=== PATIENT | male | born 1965 | race American Indian/Alaskan Native ===

== ENCOUNTER 2018-12-28 06:48 | Inpatient (IN) | payer MEDICAID ==
[~2018-12-28 06:48] MED LIST: ADRENALIN ONE; CALCIUM CHLORIDE IV ONE
[2018-12-28] MEDS ORDERED: LEVOPHED DRIP 4 MG/NS 250 ML 4 MG/250 ML BAG IV ONE ×5 (07:22→21:51)
[2018-12-28] MEDS ORDERED: VASELINE LIP THERAPY TP PRN (07:23)
[2018-12-28] MEDS ORDERED: ARTIFICIAL TEARS OPHTH OINT OU PRN (07:23)
[2018-12-28] MEDS ORDERED: ADRENALIN IV ONE ×3 (07:29→07:43)
[2018-12-28] MEDS: LEVOPHED DRIP 4 MG/NS 250 ML 4 MG/250 ML BAG IV SCH (07:30)
[2018-12-28] MEDS ORDERED: NACL 0.9% 1000 ML 1,000 ML IV ONE ×3 (07:30→08:11)
[2018-12-28] MEDS ORDERED: VANCOMYCIN/NS 1 GM/250 ML 1 GM/250 ML BAG IV ONE (07:35)
[2018-12-28] MEDS ORDERED: ZOSYN/NS 4.5GM/100ML 4.5 GM/100 ML VIAL IV ONE ×2 (07:35→18:27)
--- NOTE | 2018-12-28 07:36 | Emergency Department Report ---
ED CPR HPI - General Chief Complaint: Cardiac Arrest/CPR Stated Complaint: CARDIAC ARREST Time Seen by Provider: 12/28/18 07:20 Source: EMS Mode of arrival: Stretcher Limitations: Altered Mental Status, Physical Limitation - History of Present Illness Initial Comments: 53-year-old male with past medical history of significant debility, G-tube placement, iron deficiency anemia, COPD with oxygen prn, stage IV sacral ulcer, osteomyelitis of the sacral region, and diabetes, renal disease (as per ID record), epilepsy, hypertension, right AKA, and hyperlipidemia presents to the [facility] with initial complaint of hyperglycemia that then deteriorated to shortness of breath and cardiopulmonary arrest. Lipase glucose has been elevated controlled last night despite insulin doses. vital signs include a temperature of 100.5, bp 126/67, respiratory rate 24, pulse 94, and o2 sats of 65% on unknown amount of oxygen. At patient's baseline he is nonverbal and receives total feeds via peg tube. EMS reported that halfway stated the patient developed shortness of breath this morning. Upon EMS arrival glucose in the 300s. An route to the hospital patient began to bradycardia down into the cornea primary rest and was pulseless upon arrival to the ED. Patient arrived with bag valve mask ventilation and chest compressions in progress. No IV access was obtained and no medications provided prior to arrival. Patient is a full code. Patient [facility] a [facility] and had a hemoglobin of 7.2. - Related Data Home Medications Medication Instructions Recorded Confirmed Last Taken Sodium Bicarbonate 650 mg FEEDTUBE QID 06/11/18 12/28/18 Unknown Acetaminophen [Acetaminophen ORAL 20.3 ml FEEDTUBE Q6H PRN 08/21/18 12/28/18 Unknown LIQ] Ascorbic Acid [Vitamin C] 5 ml FEEDTUBE Q12H 08/21/18 12/28/18 Unknown Insulin Detemir [Levemir VIAL] 25 units SUB-Q QHS 08/21/18 12/28/18 Unknown Metoprolol [Lopressor TAB] 100 mg FEEDTUBE Q12H 08/21/18 12/28/18 Unknown Multivit-Minerals/Ferrous Gluc 5 ml FEEDTUBE DAILY@0600 08/21/18 12/28/18 Unknown [Centrum Multivit-Mineral Liq] Potassium Chloride 15 ml FEEDTUBE DAILY@0600 08/21/18 12/28/18 Unknown Zinc Sulfate 220 mg FEEDTUBE Q12H 08/21/18 12/28/18 Unknown hydrALAZINE [Apresoline TAB] 10 mg FEEDTUBE Q8H 08/21/18 12/28/18 Unknown levETIRAcetam [Keppra ORAL LIQ] 500 mg FEEDTUBE Q12H 08/21/18 12/28/18 Unknown Acetaminophen [Acetaminophen ORAL 20.3 ml FEEDTUBE Q6H PRN 12/28/18 12/28/18 Un known LIQ] Calcium Acetate 10 ml FEEDTUBE TID 12/28/18 12/28/18 Unknown Docusate Sodium 15 ml FEEDTUBE DAILY 12/28/18 12/28/18 Unknown Famotidine [Pepcid] 20 mg PO Q12H 12/28/18 12/28/18 Unknown Ferrous Sulfate [Ferrous Sulfate 5 ml FEEDTUBE BID 12/28/18 12/28/18 Unknown 220 MG/5 ML] HYDROcodone/APAP 5-325 [[place] 1 each FEEDTUBE BID 12/28/18 12/28/18 Unknown 5/325] Lipase/Protease/Amylase [[place] 1 each FEEDTUBE Q8H PRN 12/28/18 12/28/18 Unknown 12,000 Units] Lispro Insulin [Humalog] See Protocol SUB-Q ACHS 12/28/18 12/28/18 Unknown Sennosides [Senna Lax] 8.6 mg FEEDTUBE DAILY 12/28/18 12/28/18 Unknown traMADol [Ultram] 50 mg FEEDTUBE BID PRN 12/28/18 12/28/18 Unknown Allergies Allergy/AdvReac Type Severity Reaction Status Date / Time No Known Drug Allergies Allergy Unknown Verified 06/11/18 12:07 ED Review of Systems ROS: Stated complaint: CARDIAC ARREST Other details as noted in HPI Comment: Unobtainable due to pts medical conditions ED Past Medical Hx - Past Medical History Previous Medical History?: Yes Hx Hypertension: Yes Hx Heart Attack/AMI: No Hx Congestive Heart Failure: No Hx Diabetes: Yes Hx Deep Vein Thrombosis: No Hx Liver Disease: No Hx Seizures: Yes (x1 episode 12/2017) Hx Asthma: No Hx COPD: No Hx Tuberculosis: No Hx HIV: No - Surgical History Hx Open Heart Surgery: No Hx Pacemaker: No Hx Internal Defibrillator: No Hx Cholecystectomy: No Hx Appendectomy: No Hx Breast Surgery: No Additional Surgical History: above knee amputee, - Social History Smoking Status: Unknown if ever smoked - Medications Home Medications: Home Medications Medication Instructions Recorded Confirmed Last Taken Type Sodium Bicarbonate 650 mg FEEDTUBE QID 06/11/18 12/28/18 Unknown History Acetaminophen [Acetaminophen ORAL 20.3 ml FEEDTUBE Q6H PRN 08/21/18 12/28/18 Unknown History LIQ] Ascorbic Acid [Vitamin C] 5 ml FEEDTUBE Q12H 08/21/18 12/28/18 Unknown History Insulin Detemir [Levemir VIAL] 25 units SUB-Q QHS 08/21/18 12/28/18 Unknown History Metoprolol [Lopressor TAB] 100 mg FEEDTUBE Q12H 08/21/18 12/28/18 Unknown History Multivit-Minerals/Ferrous Gluc 5 ml FEEDTUBE DAILY@0600 08/21/18 12/28/18 Unknown History [Centrum Multivit-Mineral Liq] Potassium Chloride 15 ml FEEDTUBE DAILY@0600 08/21/18 12/28/18 Unknown History Zinc Sulfate 220 mg FEEDTUBE Q12H 08/21/18 12/28/18 Unknown History hydrALAZINE [Apresoline TAB] 10 mg FEEDTUBE Q8H 08/21/18 12/28/18 Unknown History levETIRAcetam [Keppra ORAL LIQ] 500 mg FEEDTUBE Q12H 08/21/18 12/28/18 Unknown History Acetaminophen [Acetaminophen ORAL 20.3 ml FEEDTUBE Q6H PRN 12/28/18 12/28/18 Unknown History LIQ] Calcium Acetate 10 ml FEEDTUBE TID 12/28/18 12/28/18 Unknown History Docusate Sodium 15 ml FEEDTUBE DAILY 12/28/18 12/28/18 Unknown History Famotidine [Pepcid] 20 mg PO Q12H 12/28/18 12/28/18 Unknown History Ferrous Sulfate [Ferrous Sulfate 5 ml FEEDTUBE BID 12/28/18 12/28/18 Unknown History 220 MG/5 ML] HYDROcodone/APAP 5-325 [[place] 1 each FEEDTUBE BID 12/28/18 12/28/18 Unknown History 5/325] Lipase/Protease/Amylase [Creon Dr 1 each FEEDTUBE Q8H PRN 12/28/18 12/28/18 Unknown History 12,000 Units] Lispro Insulin [Humalog] See Protocol SUB-Q ACHS 12/28/18 12/28/18 Unknown History Sennosides [Senna Lax] 8.6 mg FEEDTUBE DAILY 12/28/18 12/28/18 Unknown History traMADol [Ultram] 50 mg FEEDTUBE BID PRN 12/28/18 12/28/18 Unknown History ED Physical Exam - General Limitations: Physical Limitation - Other Other exam information: General: Unresponsive Head exam: left fontal scalp surgery with craniotomy/skull defect Eyes exam: Pupils fixed and dilated pupils ENT: copious secretions and posterior pharynx during intubation, aspiration suspected since secretions noted an ET tube after intubation Neck exam: Normal inspection Respiratory exam: Apneic with [id number] Cardiovascular: Pulseless Abdomen: Soft, PEG tube, nondistended, + colostomy Extremity: Right AKA, no spontaneous movement Neurologic: GCS equals 3 Psychiatric: Unresponsive Skin: Sacral decubitus ulcer, multiple decubitus ulcers ED Course Vital Signs 12/28/18 12/28/18 12/28/18 07:21 08:00 09:44 Temperature 99.2 F Pulse Rate 44 L 57 L Respiratory Rate Blood Pressure 55/28 113/61 O2 Sat by Pulse Oximetry 12/28/18 12/28/18 12/28/18 10:45 11:00 11:30 Temperature 97.6 F 97.6 F 97.6 F Pulse Rate 44 L 46 L 44 L Respiratory 20 24 23 Rate Blood Pressure 115/58 115/56 113/55 O2 Sat by Pulse 96 Oximetry 12/28/18 12/28/18 12/28/18 12:00 12:30 12:35 Temperature 97.5 F L Pulse Rate 44 L 42 L 42 L Respiratory 24 24 24 Rate Blood Pressure 114/53 115/53 O2 Sat by Pulse 98 98 Oximetry 12/28/18 12/28/18 12/28/18 13:00 13:30 14:00 Temperature 97.6 F 97.6 F Pulse Rate 42 L 42 L 41 L Respiratory 24 23 25 H Rate Blood Pressure 126/55 100/53 96/51 O2 Sat by Pulse 97 95 93 Oximetry - Reevaluation(s) Reevaluation #1: 12/28/18 07:44 Patient arrived pulseless with asystole. Crash intubation forms without sedating meds. IO was placed in the left tibia. Patient received 2 Amps of epinephrine, Sodium bicarbonate, and calcium gluconate with return of spontaneous circulation. Right femoral central line was in place and no epi drip ordered. Patient required intermittent boluses of epi IV for recurrent bradycardia and hypotension. 12/28/18 07:59 Patient remains hypotensive despite being maxed out on Levophed. 2 L normal saline bolus and progress. Epinephrine drip ordered. Critical care attending pagerivera 12/28/18 08:18 initial abg suggestive of respiratory and metabolic acidosis, respiratory rate increased on vent (see resp therapist note) - Consultations Consultation #1: 12/28/18 07:[address] Santiago diana 12/28/18 08:08 recommendations: addition of vasopressin to max out Levophed 2 Amp of sodium bicarbonate followed by bicarbonate drip at 200 mL per hour. - ABG Interpretation Ph: 7.17 PCO2: 60 PO2: 97 Bicarbonate: 22 Interpretation: respiratory acidosis - Central Line Placement Right Femoral Consent Obtained: emergent situation Time Out Performed: Yes Patient Placed on Monitor/Pulse Ox: Yes MD Prep: mask, gown, gloves Central Line Prep: Chlorhexidine scrub, sterile drapes applied Ultrasound Used for Placement: No Central Line Lumen Inserted: triple Bloods Obtained for Lab: Yes Central Line Position: good blood return, sutured in place with 3-0 Dressing Applied: Tegaderm Patient Tolerated Procedure: well Complications: none - Intubation Time Out Performed: Yes Sedative: none Laryngoscope: Vargas Size: 4 ET Tube Size: 7.5 Tube Secured Depth (cm): 22 Tube Secured Location: lips Tube Placement Confirmation: visualized tube passing t, equal breath sounds bilat, no breath sounds over epi, confirmation by capnometr Patient Tolerated Procedure: well Intubation Complications: none ED Medical Decision Making - Lab Data Result diagrams: 12/28/18 07:20 12/28/18 07:20 Lab Results 12/28/18 12/28/18 12/28/18 Range/Units 06:56 07:20 07:20 WBC 19.1 H (4.5-11.0) K/mm3 RBC 2.42 L (3.65-5.03) M/mm3 Hgb 6.2 L (11.8-15.2) gm/dl Hct 23.5 L (35.5-45.6) % MCV 97 H (84-94) fl MCH 26 L (28-32) pg MCHC 27 L (32-34) % RDW 20.5 H (13.2-15.2) % Plt Count 507 H (140-440) K/mm3 Lymph % (Auto) Chain Pegger [place] % (Auto) Chain Pegger Eos % (Auto) Chain Pegger Baso % (Auto) Chain Pegger Lymph # Chain Pegger [place] # Chain Pegger Eos # Chain Pegger Baso # Chain Pegger Seg Neutrophils % Chain Pegger Seg Neutrophils # Chain Pegger PT (12.2-14.9) Sec. INR (0.87-1.13) APTT (24.2-36.6) Sec. VBG pH (7.320-7.420) Sodium 160 H (137-145) mmol/L Potassium 5.6 H (3.6-5.0) mmol/L Chloride 108.5 H (98-107) mmol/L Carbon Dioxide 21 L (22-30) mmol/L Anion Gap 36 mmol/L BUN 67 H (9-20) mg/dL Creatinine 1.3 (0.8-1.5) mg/dL Estimated GFR > 60 ml/min BUN/Creatinine Ratio 52 % Glucose 457 H (75-100) mg/dL POC Glucose 357 H (70-105) Lactic Acid (0.7-2.0) mmol/L Calcium > 13.0 H* (8.4-10.2) mg/dL Total Bilirubin 0.30 (0.1-1.2) mg/dL AST 325 H (5-40) units/L ALT 190 H (7-56) units/L Alkaline Phosphatase 132 H (35-129) units/L CK-MB (CK-2) 1.9 (0.0-4.0) ng/mL Troponin T 0.568 H* (0.00-0.029) ng/mL Total Protein 6.8 (6.3-8.2) g/dL Albumin 2.8 L (3.9-5) g/dL Albumin/Globulin Ratio 0.7 % Urine Color (Yellow) Urine Turbidity (Clear) Urine pH (5.0-7.0) Ur Specific [place] [employer] (1.003-1.030) Urine Protein (Negative) mg/dL Urine Glucose (UA) (Negative) mg/dL Urine Ketones (Negative) mg/dL Urine Blood (Negative) Urine Nitrite (Negative) Urine Bilirubin (Negative) Urine Urobilinogen (<2.0) mg/dL Ur Leukocyte Esterase (Negative) Urine WBC (Auto) (0.0-6.0) /HPF Urine RBC (Auto) (0.0-6.0) /HPF Hyaline Casts /LPF Urine Yeast (Budding) /HPF Blood Type Antibody Screen Crossmatch 12/28/18 12/28/18 12/28/18 Range/Units 07:20 07:20 07:20 WBC (4.5-11.0) K/mm3 RBC (3.65-5.03) M/mm3 Hgb (11.8-15.2) gm/dl Hct (35.5-45.6) % MCV (84-94) fl MCH (28-32) pg MCHC (32-34) % RDW (13.2-15.2) % Plt Count (140-440) K/mm3 Lymph % (Auto) [place] % (Auto) Eos % (Auto) Baso % (Auto) Lymph # [place] # Eos # Baso # Seg Neutrophils % Seg Neutrophils # PT 17.1 H (12.2-14.9) Sec. INR 1.31 H (0.87-1.13) APTT 27.5 (24.2-36.6) Sec. VBG pH 7.149 L* (7.320-7.420) Sodium (137-145) mmol/L Potassium (3.6-5.0) mmol/L Chloride (98-107) mmol/L Carbon Dioxide (22-30) mmol/L Anion Gap mmol/L BUN (9-20) mg/dL Creatinine (0.8-1.5) mg/dL Estimated GFR ml/min BUN/Creatinine Ratio % Glucose (75-100) mg/dL POC Glucose (70-105) Lactic Acid 15.40 H* (0.7-2.0) mmol/L Calcium (8.4-10.2) mg/dL Total Bilirubin (0.1-1.2) mg/dL AST (5-40) units/L ALT (7-56) units/L Alkaline Phosphatase (35-129) units/L CK-MB (CK-2) (0.0-4.0) ng/mL Troponin T (0.00-0.029) ng/mL Total Protein (6.3-8.2) g/dL Albumin (3.9-5) g/dL Albumin/Globulin Ratio % Urine Color (Yellow) Urine Turbidity (Clear) Urine pH (5.0-7.0) Ur Specific [place] [employer] (1.003-1.030) Urine Protein (Negative) mg/dL Urine Glucose (UA) (Negative) mg/dL Urine Ketones (Negative) mg/dL Urine Blood (Negative) Urine Nitrite (Negative) Urine Bilirubin (Negative) Urine Urobilinogen (<2.0) mg/dL Ur Leukocyte Esterase (Negative) Urine WBC (Auto) (0.0-6.0) /HPF Urine RBC (Auto) (0.0-6.0) /HPF Hyaline Casts /LPF Urine Yeast (Budding) /HPF Blood Type Antibody Screen Crossmatch 12/28/18 12/28/18 Range/Units 07:20 08:02 WBC (4.5-11.0) K/mm3 RBC (3.65-5.03) M/mm3 Hgb (11.8-15.2) gm/dl Hct (35.5-45.6) % MCV (84-94) fl MCH (28-32) pg MCHC (32-34) % RDW (13.2-15.2) % Plt Count (140-440) K/mm3 Lymph % (Auto) [place] % (Auto) Eos % (Auto) Baso % (Auto) Lymph # [place] # Eos # Baso # Seg Neutrophils % Seg Neutrophils # PT (12.2-14.9) Sec. INR (0.87-1.13) APTT (24.2-36.6) Sec. VBG pH (7.320-7.420) Sodium (137-145) mmol/L Potassium (3.6-5.0) mmol/L Chloride (98-107) mmol/L Carbon Dioxide (22-30) mmol/L Anion Gap mmol/L BUN (9-20) mg/dL Creatinine (0.8-1.5) mg/dL Estimated GFR ml/min BUN/Creatinine Ratio % Glucose (75-100) mg/dL POC Glucose (70-105) Lactic Acid (0.7-2.0) mmol/L Calcium (8.4-10.2) mg/dL Total Bilirubin (0.1-1.2) mg/dL AST (5-40) units/L ALT (7-56) units/L Alkaline Phosphatase (35-129) units/L CK-MB (CK-2) (0.0-4.0) ng/mL Troponin T (0.00-0.029) ng/mL Total Protein (6.3-8.2) g/dL Albumin (3.9-5) g/dL Albumin/Globulin Ratio % Urine Color Yellow (Yellow) Urine Turbidity Slightly-cloudy (Clear) Urine pH 8.0 H (5.0-7.0) Ur Specific [place] [employer] 1.018 (1.003-1.030) Urine Protein 100 mg/dl (Negative) mg/dL Urine Glucose (UA) >=500 (Negative) mg/dL Urine Ketones Neg (Negative) mg/dL Urine Blood Neg (Negative) Urine Nitrite Neg (Negative) Urine Bilirubin Neg (Negative) Urine Urobilinogen < 2.0 (<2.0) mg/dL Ur Leukocyte Esterase Lg (Negative) Urine WBC (Auto) 59.0 H (0.0-6.0) /HPF Urine RBC (Auto) 6.0 (0.0-6.0) /HPF Hyaline Casts 1 /LPF Urine Yeast (Budding) 2+ /HPF Blood Type B POSITIVE Antibody Screen Negative Crossmatch See Detail - EKG Data -: EKG Interpreted by Id EKG shows normal: sinus rhythm, axis (qrs 33), QRS complexes (qrsd 71), ST-T waves (no stemi) Rate: bradycardia (55) - Radiology Data Radiology results: report reviewed AP CHEST: HISTORY: Endotracheal tube placement Compared to 09/06/18. The endotracheal tube is in adequate position terminating 3.2 cm superior to the [place]. Right arm PICC has been removed since the previous exam. Cardiac defibrillator pads are in position. There is poor inspiratory effort with mild bibasilar atelectatic changes, right greater than left. The lungs are grossly clear otherwise. No large pleural effusion or pneumothorax. Heart and mediastinal structures are within normal limits. IMPRESSION: Adequate placement of the endotracheal tube. Bibasilar hypoventilatory changes. - Medical Decision Making Patient name is extremely critical with poor prognosis status post cardiopulmonary arrest. Patient placed on norepinephrine and vasopressin. 3 L of normal saline ordered. Bicarbonate bolus, bicarbonate drip, Zosyn and vancomycin empirically ordered for possible sepsis (vs cardiogenic shock), cultures pending, 2 units PRBC ordered, critical care consultation and case discussed with hospitalist. See course and consult - Differential Diagnosis DKA, sepsis, COPD exacerbation, [place], PE Critical Care Time: Yes Critical care time in (mins) excluding proc time.: 65 Critical care attestation.: If time is entered above; I have spent that time in minutes in the direct care of this critically ill patient, excluding procedure time. ED Disposition Clinical Impression: Cardiopulmonary arrest, Septic shock, Hyperglycemia, Transaminasemia, IDDM (insulin dependent diabetes mellitus), Prerenal azotemia, Dehydration, Hyperkalemia, Hypercalcemia, Sacral decubitus ulcer, stage IV, History of right above knee amputation, S/P percutaneous endoscopic gastrostomy (PEG) tube placement, Anemia, Elevated troponin, Respiratory acidosis, Lactic acid acidosis, UTI (urinary tract infection) Disposition: DC-09 OP ADMIT IP TO THIS HOSP Is pt being admited?: Yes Condition: Critical Time of Disposition: 08:17 (Dr clarke/Stephanie)
[2018-12-28 07:49] LABS: Hematocrit 23.5 % (35.5-45.6); Hemoglobin 6.2 gm/dl (11.8-15.2); Mean Corpuscular HGB Conc 27 % (32-34); Mean Corpuscular Volume 97 fl (84-94); Platelet Count 507 K/mm3 (140-440); Red Blood Count 2.42 M/mm3 (3.65-5.03); Red Cell Distribution Width 20.5 % (13.2-15.2)
[2018-12-28 07:50] LABS: INR 1.31 (0.87-1.13)
[2018-12-28 07:51] LABS: Partial Thromboplastin Time 27.5 Sec. (24.2-36.6)
[2018-12-28] MEDS ORDERED: NACL 0.9% 500 ML 500 ML IV ONE (07:51)
[2018-12-28] MEDS ORDERED: ADRENALIN 8 MG in NACL 0.9% 250ML 242 ML IV ONE (07:54)
--- NOTE | 2018-12-28 07:58 | XRay Report ---
AP CHEST: HISTORY: Endotracheal tube placement Compared to 09/06/18. The endotracheal tube is in adequate position terminating 3.2 cm superior to the [place]. Right arm PICC has been removed since the previous exam. Cardiac defibrillator pads are in position. There is poor inspiratory effort with mild bibasilar atelectatic changes, right greater than left. The lungs are grossly clear otherwise. No large pleural effusion or pneumothorax. Heart and mediastinal structures are within normal limits. IMPRESSION: Adequate placement of the endotracheal tube. Bibasilar hypoventilatory changes.
[2018-12-28 08:02] LABS: Creatine Kinase MB 1.9 ng/mL (0.0-4.0)
[2018-12-28] MEDS ORDERED: INTROPIN DRIP 800 MG/D5W 250 ML 800 MG/250 ML BAG IV ONE (08:03)
[2018-12-28] MEDS ORDERED: SODIUM BICARBONATE 150 MEQ in D5W 1,000 ML IV ONE (08:04)
[2018-12-28 08:08] LABS: Alanine Aminotransferase 190 units/L (7-56); Albumin 2.8 g/dL (3.9-5); BUN/Creatinine Ratio 52; Blood Urea Nitrogen 67 mg/dL (9-20); Hemolysis Index 3
[2018-12-28] MEDS ORDERED: D50W (25GM) Syringe IV PRN ×2 (08:10→20:31)
[2018-12-28] MEDS ORDERED: KEPPRA 500 MG/NS 0.82% 100 ML 500 MG/100 ML BAG IV ONE (08:17)
[2018-12-28 08:18] LABS: Bilirubin,Urine NEG (Negative); Blood,Urine NEG (Negative); Color,Urine Yellow (Yellow); Hyaline Casts,Urine 1 /LPF; Urobilinogen,Urine < 2.0 mg/dL (<2.0)
[2018-12-28 08:22] LABS: Calcium > 13.0 mg/dL (8.4-10.2)
[2018-12-28 08:35] LABS: Chol/HDL Ratio 3.03 %; HDL Cholesterol 27 mg/dL (40-59); LDL Cholesterol,Direct 49 mg/dL (50-130)
[2018-12-28] MEDS ORDERED: KEPPRA 500 MG in NACL 0.9% 100 ML IV NR (09:00)
[2018-12-28] MEDS ORDERED: HumuLIN R 100 UNITS in NACL 0.9% 99 ML IV SCH (09:00)
[2018-12-28] MEDS ORDERED: Vasostrict 20 UNIT in NACL 0.9% 100 ML IV SCH (09:00)
[2018-12-28 09:12] LABS: Basophils % (Manual) 0 % (0.0-1.8); Eosinophils % (Manual) 0 % (0.0-4.3); Total Cells Counted 100
[2018-12-28 09:13] LABS: Anisocytosis 1+; Rouleaux 1+; Tear Drop Cells Few; Toxic Granulation 1+
[2018-12-28 09:15] LABS: Platelet Estimate Consistent w Auto
[2018-12-28] MEDS ORDERED: NARCAN 0.4 MG/1 ML IV PRN (11:28)
[2018-12-28] MEDS ORDERED: MORPHINE IV PRN (11:28)
[2018-12-28] MEDS ORDERED: ZOFRAN IV PRN (11:28)
[2018-12-28] MEDS ORDERED: SODIUM CHLORIDE FLUSH SYRINGE 10 ML IV PRN (11:28)
--- NOTE | 2018-12-28 12:16 | Event Note ---
Date: 12/28/18 Detailed cardiology consultation dictated. Pt is resident of [facility] who presented with cardiopulmonary arrest. Noted to be in sinus bradycardia, requiring multiple vasopressors. Pt was on lopressor 100mg BID at home. Obtain echo and hold AV iraj blocking agents. Overall poor prognosis. Mauricio DURAN NP / DR. POLK
--- NOTE | 2018-12-28 16:56 | History and Physical Report ---
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 As per staff at [facility] patient was hyperglycemic and deteriorated to shortness of breath. In route to the [facility] patient began to experience bradycardia. Pt became pulseless on arrival to ED, subsequently leading to cardiopulmonary arrest. Cardiopulmonary resuscitation was performed, patient was intubated, and placed on levophed and vasopressin. He is found to be acidotic , hypercapnic, hyperglycemic and anemic. He was further treated with 2 units of PRBC and insulin drip. Past History Past Medical History: diabetes, hypertension, seizures Past Surgical History: Other Social history: other Family history: no significant family history Medications and Allergies Allergies Allergy/AdvReac Type Severity Reaction Status Date / Time No Known Drug Allergies Allergy Unknown Verified 06/11/18 12:07 Home Medications Medication Instructions Recorded Confirmed Last Taken Type Sodium Bicarbonate 650 mg FEEDTUBE QID 06/11/18 12/28/18 Unknown History Acetaminophen [Acetaminophen ORAL 20.3 ml FEEDTUBE Q6H PRN 08/21/18 12/28/18 Unknown History LIQ] Ascorbic Acid [Vitamin C] 5 ml FEEDTUBE Q12H 08/21/18 12/28/18 Unknown History Insulin Detemir [Levemir VIAL] 25 units SUB-Q QHS 08/21/18 12/28/18 Unknown History Metoprolol [Lopressor TAB] 100 mg FEEDTUBE Q12H 08/21/18 12/28/18 Unknown History Multivit-Minerals/Ferrous Gluc 5 ml FEEDTUBE DAILY@0600 08/21/18 12/28/18 Unknown History [Centrum Multivit-Mineral Liq] Potassium Chloride 15 ml FEEDTUBE DAILY@0600 08/21/18 12/28/18 Unknown History Zinc Sulfate 220 mg FEEDTUBE Q12H 08/21/18 12/28/18 Unknown History hydrALAZINE [Apresoline TAB] 10 mg FEEDTUBE Q8H 08/21/18 12/28/18 Unknown History levETIRAcetam [Keppra ORAL LIQ] 500 mg FEEDTUBE Q12H 08/21/18 12/28/18 Unknown History Acetaminophen [Acetaminophen ORAL 20.3 ml FEEDTUBE Q6H PRN 12/28/18 12/28/18 Unknown History LIQ] Calcium Acetate 10 ml FEEDTUBE TID 12/28/18 12/28/18 Unknown History Docusate Sodium 15 ml FEEDTUBE DAILY 12/28/18 12/28/18 Unknown History Famotidine [Pepcid] 20 mg PO Q12H 12/28/18 12/28/18 Unknown History Ferrous Sulfate [Ferrous Sulfate 5 ml FEEDTUBE BID 12/28/18 12/28/18 Unknown History 220 MG/5 ML] HYDROcodone/APAP 5-325 [Avalon 1 each FEEDTUBE BID 12/28/18 12/28/18 Unknown History 5/325] Lipase/Protease/Amylase [[place] 1 each FEEDTUBE Q8H PRN 12/28/18 12/28/18 Unknown History 12,000 Units] Lispro Insulin [Humalog] See Protocol SUB-Q ACHS 12/28/18 12/28/18 Unknown History Sennosides [Senna Lax] 8.6 mg FEEDTUBE DAILY 12/28/18 12/28/18 Unknown History traMADol [Ultram] 50 mg FEEDTUBE BID PRN 12/28/18 12/28/18 Unknown History Active Meds: Active Medications Dextrose (D50w (25gm) Syringe) 0 ml IV PRN PRN PRN Reason: Hypoglycemia Hydrophilic Ointment (Vaseline Lip Therapy) 1 applic TP Q2HR PRN PRN Reason: Dry Lips Norepinephrine (Levophed Drip 4 Mg/Ns 250 Ml) 4 mg in 250 mls @ 7.5 mls/hr IV TITR PATRICIO; Protocol Last Titration: 12/28/18 10:00 Dose: 22 mcg/min, 82.5 mls/hr Documented by: Vasopressin 20 unit/ Sodium (Chloride) 101 mls @ 9.09 mls/hr IV TITR PATRICIO; Protocol Last Admin: 12/28/18 08:57 Dose: 0.03 units/min, 9.09 mls/hr Documented by: Insulin Human Regular 100 (units/ Sodium Chloride) 100 mls @ 1 mls/hr IV TITR PATRICIO; Protocol Last Titration: 12/28/18 16:34 Dose: 3 units/hr, 3 mls/hr Documented by: Morphine Sulfate (Morphine) 2 mg IV Q4H PRN PRN Reason: Pain, Moderate (4-6) Multi-Ingred Cream/Lotion/Oil/Oint (Artificial Tears Ophth Oint) 1 applic OU Q4HR PRN PRN Reason: Dry Eye(s) Naloxone HCl (Narcan 0.4 Mg/1 Ml) 0.1 mg IV Q2MIN PRN PRN Reason: Res Rate </= 8 or 02 SAT < 92% Ondansetron HCl (Zofran) 4 mg IV Q8H PRN PRN Reason: Nausea And Vomiting Sodium Chloride (Sodium Chloride Flush Syringe 10 Ml) 10 ml IV BID PATRICIO Sodium Chloride (Sodium Chloride Flush Syringe 10 Ml) 10 ml IV PRN PRN PRN Reason: LINE FLUSH Review of Systems ROS unobtainable: due to endotracheal tube Exam - Constitutional Vitals: Temp Pulse Resp BP Pulse Ox 97.6 F 42 L 21 90/45 93 12/28/18 13:30 12/28/18 15:22 12/28/18 15:22 12/28/18 15:22 12/28/18 14:00 General appearance: Present: mild distress - EENT Eyes: Present: PERRL ENT: poor dentition - Neck Neck: Present: supple - Respiratory Respiratory effort: other Respiratory: bilateral: diminished - Cardiovascular Rhythm: irregularly irregular Heart Sounds: Present: S1 & S2 - Extremities Extremities: No edema, abnormal Peripheral Pulses: abnormal - Abdominal General gastrointestinal: Present: soft, other Male genitourinary: Present: deferred - Rectal Rectal Exam: deferred - Integumentary Integumentary: Present: warm - Musculoskeletal Musculoskeletal: other - Psychiatric Psychiatric: other - Neurologic Neurologic: other Results - Labs CBC & Chem 7: 12/28/18 07:20 12/28/18 16:36 Labs: Laboratory Last Values WBC 19.1 K/mm3 (4.5-11.0) H 12/28/18 07:20 RBC 2.42 M/mm3 (3.65-5.03) L 12/28/18 07:20 Hgb 6.2 gm/dl (11.8-15.2) L 12/28/18 07:20 Hct 23.5 % (35.5-45.6) L 12/28/18 07:20 MCV 97 fl (84-94) H 12/28/18 07:20 MCH 26 pg (28-32) L 12/28/18 07:20 MCHC 27 % (32-34) L 12/28/18 07:20 RDW 20.5 % (13.2-15.2) H 12/28/18 07:20 Plt Count 507 K/mm3 (140-440) H 12/28/18 07:20 Lymph % (Auto) [employer] 12/28/18 07:20 [place] % (Auto) [employer] 12/28/18 07:20 Eos % (Auto) [employer] 12/28/18 07:20 Baso % (Auto) [employer] 12/28/18 07:20 Lymph # [employer] 12/28/18 07:20 [place] # [employer] 12/28/18 07:20 Eos # [employer] 12/28/18 07:20 Baso # [employer] 12/28/18 07:20 Add Manual Diff Complete 12/28/18 07:20 Total Counted 100 12/28/18 07:20 Seg Neutrophils % [employer] 12/28/18 07:20 Seg Neuts % (Manual) 79.0 % (40.0-70.0) H 12/28/18 07:20 Band Neutrophils % 0 % 12/28/18 07:20 Lymphocytes % (Manual) 15.0 % (13.4-35.0) 12/28/18 07:20 Reactive Lymphs % (Man) 2.0 % 12/28/18 07:20 Monocytes % (Manual) 3.0 % (0.0-7.3) 12/28/18 07:20 Eosinophils % (Manual) 0 % (0.0-4.3) 12/28/18 07:20 Basophils % (Manual) 0 % (0.0-1.8) 12/28/18 07:20 Metamyelocytes % 1.0 % 12/28/18 07:20 Myelocytes % 0 % 12/28/18 07:20 Promyelocytes % 0 % 12/28/18 07:20 Blast Cells % 0 % 12/28/18 07:20 Nucleated RBC % 1.0 % (0.0-0.9) H 12/28/18 07:20 Seg Neutrophils # [employer] Organ[employer] 12/28/18 07:20 Seg Neutrophils # Man 15.1 K/mm3 (1.8-7.7) H 12/28/18 07:20 Band Neutrophils # 0.0 K/mm3 12/28/18 07:20 Lymphocytes # (Manual) 2.9 K/mm3 (1.2-5.4) 12/28/18 07:20 Abs React Lymphs (Man) 0.4 K/mm3 12/28/18 07:20 Monocytes # (Manual) 0.6 K/mm3 (0.0-0.8) 12/28/18 07:20 Eosinophils # (Manual) 0.0 K/mm3 (0.0-0.4) 12/28/18 07:20 Basophils # (Manual) 0.0 K/mm3 (0.0-0.1) 12/28/18 07:20 Metamyelocytes # 0.2 K/mm3 12/28/18 07:20 Myelocytes # 0.0 K/mm3 12/28/18 07:20 Promyelocytes # 0.0 K/mm3 12/28/18 07:20 Blast Cells # 0.0 K/mm3 12/28/18 07:20 WBC Morphology Not Reportable 12/28/18 07:20 Hypersegmented Neuts Not Reportable 12/28/18 07:20 Hyposegmented Neuts Not Reportable 12/28/18 07:20 Hypogranular Neuts Not Reportable 12/28/18 07:20 Smudge Cells Not Reportable 12/28/18 07:20 Toxic Granulation 1+ 12/28/18 07:20 Toxic Vacuolation Not Reportable 12/28/18 07:20 Dohle Bodies Not Reportable 12/28/18 07:20 Pelger-Huet Anomaly Not Reportable 12/28/18 07:20 Fritz Rods Not Reportable 12/28/18 07:20 Platelet Estimate Consistent w auto 12/28/18 07:20 Clumped Platelets Not Reportable 12/28/18 07:20 Plt Clumps, EDTA Not Reportable 12/28/18 07:20 Large Platelets Not Reportable 12/28/18 07:20 Giant Platelets Not Reportable 12/28/18 07:20 Platelet Satelliting Not Reportable 12/28/18 07:20 Plt Morphology Comment Not Reportable 12/28/18 07:20 RBC Morphology Not Reportable 12/28/18 07:20 Dimorphic RBCs Not Reportable 12/28/18 07:20 Polychromasia Not Reportable 12/28/18 07:20 Hypochromasia Not Reportable 12/28/18 07:20 Poikilocytosis Not Reportable 12/28/18 07:20 Anisocytosis 1+ 12/28/18 07:20 Microcytosis Not Reportable 12/28/18 07:20 Macrocytosis Not Reportable 12/28/18 07:20 Spherocytes Not Reportable 12/28/18 07:20 Pappenheimer Bodies Not Reportable 12/28/18 07:20 Sickle Cells Not Reportable 12/28/18 07:20 Target Cells Not Reportable 12/28/18 07:20 Tear Drop Cells Few 12/28/18 07:20 Ovalocytes Not Reportable 12/28/18 07:20 Helmet Cells Not Reportable 12/28/18 07:20 Marcelo-[place] Bodies Not Reportable 12/28/18 07:20 Pavilion Rings Not Reportable 12/28/18 07:20 Holden Cells Not Reportable 12/28/18 07:20 Bite Cells Not Reportable 12/28/18 07:20 Crenated Cell Not Reportable 12/28/18 07:20 Elliptocytes Not Reportable 12/28/18 07:20 Acanthocytes (Spur) Not Reportable 12/28/18 07:20 Rouleaux 1+ 12/28/18 07:20 Hemoglobin C Crystals Not Reportable 12/28/18 07:20 Schistocytes Not Reportable 12/28/18 07:20 Malaria parasites Not Reportable 12/28/18 07:20 Gurdeep Bodies Not Reportable 12/28/18 07:20 Hem Pathologist Commnt No 12/28/18 07:20 PT 17.1 Sec. (12.2-14.9) H 12/28/18 07:20 INR 1.31 (0.87-1.13) H 12/28/18 07:20 APTT 27.5 Sec. (24.2-36.6) 12/28/18 07:20 POC ABG pH 7.374 (7.35-7.45) 12/28/18 10:10 POC ABG pCO2 45.3 (35-45) H 12/28/18 10:10 POC ABG pO2 135 (80-105) H 12/28/18 10:10 POC ABG HCO3 26.4 (22-26 mml/L) 12/28/18 10:10 POC ABG Total CO2 28 (23-27mmol/L) 12/28/18 10:10 POC ABG O2 Sat 99 12/28/18 10:10 POC ABG Base Excess 1 ((-2) - (+3)mmol/L) 12/28/18 10:10 VBG pH 7.149 (7.320-7.420) L* 12/28/18 07:20 FiO2 100 % 12/28/18 10:10 Sodium 160 mmol/L (137-145) H 12/28/18 07:20 Potassium 5.6 mmol/L (3.6-5.0) H 12/28/18 07:20 Chloride 108.5 mmol/L (98-107) H 12/28/18 07:20 Carbon Dioxide 21 mmol/L (22-30) L 12/28/18 07:20 Anion Gap 36 mmol/L 12/28/18 07:20 BUN 67 mg/dL (9-20) H 12/28/18 07:20 Creatinine 1.3 mg/dL (0.8-1.5) 12/28/18 07:20 Estimated GFR > 60 ml/min 12/28/18 07:20 BUN/Creatinine Ratio 52 % 12/28/18 07:20 Glucose 457 mg/dL (75-100) H 12/28/18 07:20 POC Glucose 214 (70-105) H 12/28/18 15:13 Lactic Acid 15.40 mmol/L (0.7-2.0) H* 12/28/18 07:20 Calcium > 13.0 mg/dL (8.4-10.2) H* 12/28/18 07:20 Phosphorus 9.80 mg/dL (2.5-4.5) H 12/28/18 07:40 Magnesium 3.50 mg/dL (1.7-2.3) H 12/28/18 07:40 Total Bilirubin 0.30 mg/dL (0.1-1.2) 12/28/18 07:20 AST 325 units/L (5-40) H 12/28/18 07:20 ALT 190 units/L (7-56) H 12/28/18 07:20 Alkaline Phosphatase 132 units/L (35-129) H 12/28/18 07:20 Total Creatine Kinase 213 units/L (55-170) H 12/28/18 07:20 CK-MB (CK-2) 1.9 ng/mL (0.0-4.0) 12/28/18 07:20 CK-MB (CK-2) Rel Index 0.8 (0-4) 12/28/18 07:20 Troponin T 0.568 ng/mL (0.00-0.029) H* 12/28/18 07:20 Total Protein 6.8 g/dL (6.3-8.2) 12/28/18 07:20 Albumin 2.8 g/dL (3.9-5) L 12/28/18 07:20 Albumin/Globulin Ratio 0.7 % 12/28/18 07:20 Triglycerides 106 mg/dL (2-149) 12/28/18 07:20 Cholesterol 82 mg/dL (50-199) 12/28/18 07:20 LDL Cholesterol Direct 49 mg/dL (50-130) L 12/28/18 07:20 HDL Cholesterol 27 mg/dL (40-59) L 12/28/18 07:20 Cholesterol/HDL Ratio 3.03 % 12/28/18 07:20 Urine Color Yellow (Yellow) 12/28/18 08:02 Urine Turbidity Slightly-cloudy (Clear) 12/28/18 08:02 Urine pH 8.0 (5.0-7.0) H 12/28/18 08:02 Ur Specific [place] 1.018 (1.003-1.030) 12/28/18 08:02 Urine Protein 100 mg/dl mg/dL (Negative) 12/28/18 08:02 Urine Glucose (UA) >=500 mg/dL (Negative) 12/28/18 08:02 Urine Ketones Neg mg/dL (Negative) 12/28/18 08:02 Urine Blood Neg (Negative) 12/28/18 08:02 Urine Nitrite Neg (Negative) 12/28/18 08:02 Urine Bilirubin Neg (Negative) 12/28/18 08:02 Urine Urobilinogen < 2.0 mg/dL (<2.0) 12/28/18 08:02 Ur Leukocyte Esterase Lg (Negative) 12/28/18 08:02 Urine WBC (Auto) 59.0 /HPF (0.0-6.0) H 12/28/18 08:02 Urine RBC (Auto) 6.0 /HPF (0.0-6.0) 12/28/18 08:02 Hyaline Casts 1 /LPF 12/28/18 08:02 Urine Yeast (Budding) 2+ /HPF 12/28/18 08:02 Blood Type B POSITIVE 12/28/18 07:20 Antibody Screen Negative 12/28/18 07:20 Crossmatch See Detail 12/28/18 07:20 Assessment and Plan Assessment and plan: 53 year old male resident of [facility] with history of significant debility, G-tube placement, chronic iron deficiency anemia, COPD with prn oxygen use, hypertension, seizures, 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 As per staff at [facility] patient was hyperglycemic and deteriorated to shortness of breath. In route to the [facility] patient began to experience bradycardia. Pt became pulseless on arrival to ED, subsequently leading to cardiopulmonary arrest. Cardiopulmonary resuscitation was performed, patient was intubated, and placed on levophed and vasopressin. He is found to be acidotic , hypercapnic, hyperglycemic and anemic. He was furt her treated with 2 units of PRBC and insulin gtt. Please note at baseline patient is nonverbal. Acute hypercapnic respiratory failure Chronic hypoxic respiratory failure Respiratory acidosis Acute heart failure Anemia Hyperglycemia Plan: On levophed and vasopressin drip Initial ABG 7.17/60.4/97/22 Repeat ABG 7.37/45.3/135/26.4 Received sodium bicarbonate Initial BG 457 Monitor BG On insulin drip Hemoglobin on admission 6.2 Received 2 units PRBC Echo performed and results are pending WBC elevated likely secondary to inflammatory response Monitor labs Advance Directives: No Plan of care discussed with patient/family: Yes
[2018-12-28 17:08] LABS: BUN/Creatinine Ratio 73; Blood Urea Nitrogen 51 mg/dL (9-20); Calcium 10.3 mg/dL (8.4-10.2); Hemolysis Index 0
[2018-12-28] MEDS ORDERED: SODIUM BICARBONATE PEDIATRIC ONE ×2 (18:27→18:39)
[2018-12-28] MEDS ORDERED: NACL 0.9% 1000 ML 1,000 ML ONE (18:27)
[2018-12-28] MEDS ORDERED: NACL 0.45% 1000 ML 1,000 ML IV SCH (19:50)
[2018-12-28] MEDS ORDERED: NACL 0.45% 1000 ML 1,000 ML IV ONE (20:02)
[2018-12-28 20:12] LABS: BUN/Creatinine Ratio 63; Blood Urea Nitrogen 44 mg/dL (9-20); Calcium 9.8 mg/dL (8.4-10.2); Hemolysis Index 43
[2018-12-28 22:11] LABS: BUN/Creatinine Ratio 68; Blood Urea Nitrogen 41 mg/dL (9-20); Calcium 9.4 mg/dL (8.4-10.2); Hemolysis Index 178
[2018-12-28 22:53] LABS: BUN/Creatinine Ratio 78; Blood Urea Nitrogen 39 mg/dL (9-20); Calcium 10.1 mg/dL (8.4-10.2); Hemolysis Index 2
[2018-12-28] MEDS ORDERED: D50W (25GM) Syringe IV ONE (23:16)
[2018-12-29] MEDS: HumuLIN R SUB-Q SCH ×6 (00:10→15:19)
[2018-12-29 00:53] LABS: BUN/Creatinine Ratio 68; Blood Urea Nitrogen 34 mg/dL (9-20); Calcium 9.9 mg/dL (8.4-10.2); Hemolysis Index 2
[2018-12-29] MEDS ORDERED: HEPARIN/ 0.45% NACL-25,000 UNIT/500 ML 25,000 UNIT/500 ML BAG IV SCH (01:00)
[2018-12-29] MEDS ORDERED: D5W/0.45% NACL/KCL 20 MEQ 20 MEQ/1,000 ML BAG IV SCH (01:00)
[2018-12-29 01:08] LABS: Hematocrit 29.7 % (35.5-45.6); Hemoglobin 9.3 gm/dl (11.8-15.2)
[2018-12-29] MEDS ORDERED: LEVOPHED DRIP 4 MG/NS 250 ML 4 MG/250 ML BAG IV ONE ×4 (01:32→11:14)
[2018-12-29] MEDS ORDERED: KCL 10MEQ/100ML 20 MEQ/200 ML BAG IV ONE ×2 (01:43→04:37)
[2018-12-29] MEDS: KCL 10MEQ/100ML 10 MEQ/100 ML BAG IV SCH ×4 (01:50→10:11)
--- NOTE | 2018-12-29 02:38 | Consultation ---
CONSULTATION REQUESTED BY: Sarah Jack MD HISTORY OF PRESENT ILLNESS: This is a 53-year-old -[place] male, who was seen in consultation in the Emergency Room. The patient lives at the [facility]. Apparently, this morning, EMS was called because the patient was noted to be dyspneic. When the EMS arrived, the patient's blood sugar was over 300. The patient is noncommunicative. The patient has history of hypertension, hyperlipidemia, diabetes mellitus. But on the way to the Emergency Room, the patient became dyspneic and later went into cardiopulmonary arrest. They had to start CPR. When the patient arrived at the Emergency Room, the patient was in full cardiac arrest and the EMS were doing CPR. But later they were able to intubate the patient. The patient regained a sinus rhythm, but the patient had to be placed on vasopressors to help the blood pressure. So, cardiac consultation is requested. The patient is unable to give any history. No family available. As per the records, the patient has history of hypertension, diabetes mellitus and hyperlipidemia. History of bony amputation of the right lower extremity. History of stage IV decubitus sacral ulcer with osteomyelitis of the sacral spine. The patient was anemic to initial hemoglobin of 6.2 grams. Apparently, it was 7.1 grams a few days ago. The patient also has a PEG tube. History of seizures in December of last year. No definite history of any known cardiac problems. PAST MEDICAL HISTORY: Also includes renal insufficiency. Also, gives history of COPD, for which he is on oxygen on a p.r.n. basis. Unable to get any family history or social history. MEDICATIONS: As noted. PHYSICAL EXAMINATION: GENERAL: This is a 53-year-old male, moderately built and nourished and in no acute distress at the present time. The patient is intubated and on the vent. VITAL SIGNS: Blood pressure systolic is in the range of 90-100 mmHg. Heart rate is 42 per minute and regular. SKIN: Warm and dry. HEENT: Pupils reactive. NECK: Supple. Both carotids palpable. No definite bruit. No JVD. LUNGS: Clear anteriorly. CARDIOVASCULAR: S1, S2 heard well. Systolic murmur noted. No diastolic murmur. No gallop. ABDOMEN: Soft. PEG tube noted. EXTREMITIES: Left lower extremity is cold. Pedal pulses were difficult to palpate. Above-knee amputation on the right side. LABORATORY DATA: The patient's hemoglobin was 6.2, hematocrit 23.5 and the WBC count was 19,100. The patient's blood sugar was 457. Sodium was 160, the potassium of 5.6 and BUN was 67 and creatinine 1.3. The patient's INR was 1.31. Lactic acid was elevated at 13.40. ASSESSMENT AND PLAN: This is a 53-year-old male, who was admitted to the hospital from the [facility]. The patient is now intubated and on the ventilator. He has a percutaneous endoscopic gastrostomy tube. IMPRESSION: 1. Status post cardiopulmonary arrest. 2. Septic shock. 3. Urinary tract infection. 4. Lactic acidosis. 5. Hypertension. 6. Diabetes mellitus type 2. 7. History of hyperlipidemia. 8. Stage IV decubitus sacral ulcer. 9. Osteomyelitis of the sacral spine. 10. Anemia. 11. History of chronic obstructive pulmonary disease. At this time, the patient's cardiovascular status appears reasonably stable on pressors. We will continue to monitor the patient's blood pressure and rhythm. The patient's condition is critical. Prognosis is guarded. We will follow the patient along with you. Rest of the plan as per orders. Thank you very much for this consultation. JOB# [id number] WARREN/ADIS
[2018-12-29] MEDS ORDERED: HumuLIN R ONE ×2 (03:11→09:50)
--- NOTE | 2018-12-29 04:28 | XRay Report ---
PROCEDURE: XR CHEST 1V AP TECHNIQUE: AP portable chest radiograph HISTORY: follow up respiratory failure COMPARISONS: 12/28/2018 FINDINGS: Endotracheal tube terminates approximately 3.5 cm from the [place]. No mediastinal shift. Cardiac silh ouette is not enlarged. Ill-defined bibasilar opacities without pneumothorax or definite effusion. IMPRESSION: Endotracheal tube is in satisfactory position. No pneumothorax. Ill-defined bibasilar opacities appea r slightly worse compared to 12/28/2018 and may be due to atelectasis or infection. This document is electronically signed by Brian De La Cruz MD., December 29 2018 04:27:01 AM ET
[2018-12-29] MEDS: LEVOPHED DRIP 4 MG/NS 250 ML 4 MG/250 ML BAG IV SCH ×4 (08:11→21:06)
[2018-12-29 08:58] LABS: BUN/Creatinine Ratio 53; Blood Urea Nitrogen 21 mg/dL (9-20); Hemolysis Index 1
[2018-12-29] MEDS ORDERED: MAGNESIUM SULFATE 2GM/50ML 2 GM/50 ML BAG IV ONE ×2 (09:14→09:51)
[2018-12-29] MEDS ORDERED: KCL 10MEQ/100ML 10 MEQ/100 ML BAG IV ONE (09:51)
--- NOTE | 2018-12-29 11:08 | Consultation ---
History of Present Illness Consult date: 12/29/18 Requesting physician: ANN-MARIE ALVAREZ Reason for consult: other (Cardiac arrest and acute respiratory failure) History of present illness: 53 y/o who resides at a shelter presents with out of hospital arrest. patient not responsive on vent. No sedation, multiple pressors. No family present. Per chart, called by shelter for shortness of breath and hyperglycemia. Became bradycardic in route and lost pulse. Past History Past Medical History: COPD (per chart), diabetes, hypertension, seizures Past Surgical History: Other Social history: other Family history: no significant family history Medications and Allergies Allergies Allergy/AdvReac Type Severity Reaction Status Date / Time No Known Drug Allergies Allergy Unknown Verified 06/11/18 12:07 Home Medications Medication Instructions Recorded Confirmed Last Taken Type Sodium Bicarbonate 650 mg FEEDTUBE QID 06/11/18 12/28/18 Unknown History Acetaminophen [Acetaminophen ORAL 20.3 ml FEEDTUBE Q6H PRN 08/21/18 12/28/18 Unknown History LIQ] Ascorbic Acid [Vitamin C] 5 ml FEEDTUBE Q12H 08/21/18 12/28/18 Unknown History Insulin Detemir [Levemir VIAL] 25 units SUB-Q QHS 08/21/18 12/28/18 Unknown History Metoprolol [Lopressor TAB] 100 mg FEEDTUBE Q12H 08/21/18 12/28/18 Unknown History Multivit-Minerals/Ferrous Gluc 5 ml FEEDTUBE DAILY@0600 08/21/18 12/28/18 Unknown History [Centrum Multivit-Mineral Liq] Potassium Chloride 15 ml FEEDTUBE DAILY@0600 08/21/18 12/28/18 Unknown History Zinc Sulfate 220 mg FEEDTUBE Q12H 08/21/18 12/28/18 Unknown History hydrALAZINE [Apresoline TAB] 10 mg FEEDTUBE Q8H 08/21/18 12/28/18 Unknown History levETIRAcetam [Keppra ORAL LIQ] 500 mg FEEDTUBE Q12H 08/21/18 12/28/18 Unknown History Acetaminophen [Acetaminophen ORAL 20.3 ml FEEDTUBE Q6H PRN 12/28/18 12/28/18 Unknown History LIQ] Calcium Acetate 10 ml FEEDTUBE TID 12/28/18 12/28/18 Unknown History Docusate Sodium 15 ml FEEDTUBE DAILY 12/28/18 12/28/18 Unknown History Famotidine [Pepcid] 20 mg PO Q12H 12/28/18 12/28/18 Unknown History Ferrous Sulfate [Ferrous Sulfate 5 ml FEEDTUBE BID 12/28/18 12/28/18 Unknown History 220 MG/5 ML] HYDROcodone/APAP 5-325 [[place] 1 each FEEDTUBE BID 12/28/18 12/28/18 Unknown History 5/325] Lipase/Protease/Amylase [[place] 1 each FEEDTUBE Q8H PRN 12/28/18 12/28/18 Unknown History 12,000 Units] Lispro Insulin [Humalog] See Protocol SUB-Q ACHS 12/28/18 12/28/18 Unknown History Sennosides [Senna Lax] 8.6 mg FEEDTUBE DAILY 12/28/18 12/28/18 Unknown History traMADol [Ultram] 50 mg FEEDTUBE BID PRN 12/28/18 12/28/18 Unknown History Active Meds: Active Medications Dextrose (D50w (25gm) Syringe) 50 ml IV PRN PRN PRN Reason: Hypoglycemia Last Admin: 12/28/18 23:25 Dose: 50 ml Documented by: Hydrophilic Ointment (Vaseline Lip Therapy) 1 applic TP Q2HR PRN PRN Reason: Dry Lips Norepinephrine (Levophed Drip 4 Mg/Ns 250 Ml) 4 mg in 250 mls @ 7.5 mls/hr IV TITR PATRICIO; Protocol Last Admin: 12/29/18 08:11 Dose: 20 mcg/min, 75 mls/hr Documented by: Vasopressin 20 unit/ Sodium (Chloride) 101 mls @ 9.09 mls/hr IV TITR PATRICIO; Protocol Last Titration: 12/28/18 19:20 Dose: 0.03 units/min, 10 mls/hr Documented by: Insulin Human Regular 100 (units/ Sodium Chloride) 100 mls @ 1 mls/hr IV TITR PATRICIO; Protocol Stop: 12/29/18 20:46 Last Titration: 12/28/18 18:14 Dose: 2 units/hr, 2 mls/hr Documented by: Potassium Chloride/Dextrose/Sod Cl (D5w/0.45% Nacl/Kcl 20 Meq) 20 meq in 1,000 mls @ 100 mls/hr IV DIRECT PATRICIO Last Admin: 12/29/18 04:45 Dose: 100 mls/hr Documented by: Magnesium Sulfate (Magnesium Sulfate 2gm/50ml) 2 gm in 50 mls @ 25 mls/hr IV ONCE ONE Stop: 12/29/18 11:13 Last Admin: 12/29/18 10:12 Dose: 25 mls/hr Documented by: Potassium Chloride (Kcl 20meq/100ml) 20 meq in 100 mls @ 100 mls/hr IV Q1H PATRICIO Stop: 12/29/18 11:59 Insulin Human Regular (Humulin R) 0 units SUB-Q Q3HR PATRICIO; Protocol Last Admin: 12/29/18 10:06 Dose: 8 units Documented by: Morphine Sulfate (Morphine) 2 mg IV Q4H PRN PRN Reason: Pain, Moderate (4-6) Multi-Ingred Cream/Lotion/Oil/Oint (Artificial Tears Ophth Oint) 1 applic OU Q4HR PRN PRN Reason: Dry Eye(s) Naloxone HCl (Narcan 0.4 Mg/1 Ml) 0.1 mg IV Q2MIN PRN PRN Reason: Res Rate </= 8 or 02 SAT < 92% Ondansetron HCl (Zofran) 4 mg IV Q8H PRN PRN Reason: Nausea And Vomiting Sodium Chloride (Sodium Chloride Flush Syringe 10 Ml) 10 ml IV BID PATRICIO Sodium Chloride (Sodium Chloride Flush Syringe 10 Ml) 10 ml IV PRN PRN PRN Reason: LINE FLUSH Review of Systems ROS unobtainable: due to endotracheal tube, due to mental status Physical Examination Vital signs: Vital Signs Pulse BP 44 L 55/28 12/28/18 07:21 12/28/18 07:21 General appearance: comatose Eyes: non-icteric ENT: other (orally intubated) Effort: normal Ascultation: Bilateral: diminished breath sounds Percussion: Bilateral: not dull Results - Laboratory Findings CBC and BMP: 12/30/18 08:54 12/30/18 08:54 ABG POC ABG pH 7.490 (7.35-7.45) H 12/29/18 05:13 POC ABG pCO2 34.5 (35-45) L 12/29/18 05:13 POC ABG pO2 78 (80-105) L 12/29/18 05:13 POC ABG HCO3 26.3 (22-26 mml/L) 12/29/18 05:13 POC ABG Total CO2 27 (23-27mmol/L) 12/29/18 05:13 POC ABG O2 Sat 96 12/29/18 05:13 PT/INR, D-dimer PT 17.1 Sec. (12.2-14.9) H 12/28/18 07:20 INR 1.31 (0.87-1.13) H 12/28/18 07:20 Abnormal lab findings: Abnormal Labs 12/28/18 12/28/18 12/28/18 06:56 07:20 07:20 WBC 19.1 H RBC 2.42 L Hgb 6.2 L Hct 23.5 L MCV 97 H MCH 26 L MCHC 27 L RDW 20.5 H Plt Count 507 H Seg Neuts % (Manual) 79.0 H Nucleated RBC % 1.0 H Seg Neutrophils # Man 15.1 H PT INR POC ABG pH POC ABG pCO2 POC ABG pO2 VBG pH Sodium 160 H Potassium 5.6 H Chloride 108.5 H Carbon Dioxide 21 L BUN 67 H Creatinine Glucose 457 H POC Glucose 357 H Lactic Acid Calcium > 13.0 H* Phosphorus Magnesium AST 325 H ALT 190 H Alkaline Phosphatase 132 H Total Creatine Kinase 213 H Troponin T 0.568 H* Albumin 2.8 L LDL Cholesterol Direct 49 L HDL Cholesterol 27 L Urine pH Urine WBC (Auto) Crossmatch 12/28/18 12/28/18 12/28/18 07:20 07:20 07:20 WBC RBC Hgb Hct MCV MCH MCHC RDW Plt Count Seg Neuts % (Manual) Nucleated RBC % Seg Neutrophils # Man PT 17.1 H INR 1.31 H POC ABG pH POC ABG pCO2 POC ABG pO2 VBG pH 7.149 L* Sodium Potassium Chloride Carbon Dioxide BUN Creatinine Glucose POC Glucose Lactic Acid 15.40 H* Calcium Phosphorus Magnesium AST ALT Alkaline Phosphatase Total Creatine Kinase Troponin T Albumin LDL Cholesterol Direct HDL Cholesterol Urine pH Urine WBC (Auto) Crossmatch 12/28/18 12/28/18 12/28/18 07:20 07:40 08:02 WBC RBC Hgb Hct MCV MCH MCHC RDW Plt Count Seg Neuts % (Manual) Nucleated RBC % Seg Neutrophils # Man PT INR POC ABG pH POC ABG pCO2 POC ABG pO2 VBG pH Sodium Potassium Chloride Carbon Dioxide BUN Creatinine Glucose POC Glucose Lactic Acid Calcium Phosphorus 9.80 H Magnesium 3.50 H AST ALT Alkaline Phosphatase Total Creatine Kinase Troponin T Albumin LDL Cholesterol Direct HDL Cholesterol Urine pH 8.0 H Urine WBC (Auto) 59.0 H Crossmatch See Detail 12/28/18 12/28/18 12/28/18 08:03 10:02 10:10 WBC RBC Hgb Hct MCV MCH MCHC RDW Plt Count Seg Neuts % (Manual) Nucleated RBC % Seg Neutrophils # Man PT INR POC ABG pH 7.170 L POC ABG pCO2 60.4 H 45.3 H POC ABG pO2 135 H VBG pH Sodium Potassium Chloride Carbon Dioxide BUN Creatinine Glucose POC Glucose 288 H Lactic Acid Calcium Phosphorus Magnesium AST ALT Alkaline Phosphatase Total Creatine Kinase Troponin T Albumin LDL Cholesterol Direct HDL Cholesterol Urine pH Urine WBC (Auto) Crossmatch 12/28/18 12/28/18 12/28/18 11:14 12:34 14:05 WBC RBC Hgb Hct MCV MCH MCHC RDW Plt Count Seg Neuts % (Manual) Nucleated RBC % Seg Neutrophils # Man PT INR POC ABG pH POC ABG pCO2 POC ABG pO2 VBG pH Sodium Potassium Chloride Carbon Dioxide BUN Creatinine Glucose POC Glucose 268 H 255 H 285 H Lactic Acid Calcium Phosphorus Magnesium AST ALT Alkaline Phosphatase Total Creatine Kinase Troponin T Albumin LDL Cholesterol Direct HDL Cholesterol Urine pH Urine WBC (Auto) Crossmatch 12/28/18 12/28/18 12/28/18 15:13 16:36 16:45 WBC RBC Hgb Hct MCV MCH MCHC RDW Plt Count Seg Neuts % (Manual) Nucleated RBC % Seg Neutrophils # Man PT INR POC ABG pH POC ABG pCO2 POC ABG pO2 VBG pH Sodium 159 H Potassium 3.2 L D Chloride 115.2 H Carbon Dioxide 31 H D BUN 51 H Creatinine 0.7 L Glucose 159 H POC Glucose 214 H 168 H Lactic Acid Calcium 10.3 H D Phosphorus Magnesium AST ALT Alkaline Phosphatase Total Creatine Kinase Troponin T Albumin LDL Cholesterol Direct HDL Cholesterol Urine pH Urine WBC (Auto) Crossmatch 12/28/18 12/28/18 12/28/18 19:09 19:09 21:45 WBC RBC Hgb Hct MCV MCH MCHC RDW Plt Count Seg Neuts % (Manual) Nucleated RBC % Seg Neutrophils # Man PT INR POC ABG pH POC ABG pCO2 POC ABG pO2 VBG pH Sodium 159 H 159 H Potassium 3.3 L Chloride 115.9 H 115.0 H Carbon Dioxide BUN 44 H 41 H Creatinine 0.7 L 0.6 L Glucose POC Glucose Lactic Acid Calcium Phosphorus Magnesium AST ALT Alkaline Phosphatase Total Creatine Kinase Troponin T 0.161 H* D Albumin LDL Cholesterol Direct HDL Cholesterol Urine pH Urine WBC (Auto) Crossmatch 12/28/18 12/28/18 12/28/18 22:20 22:20 23:11 WBC RBC Hgb Hct MCV MCH MCHC RDW Plt Count Seg Neuts % (Manual) Nucleated RBC % Seg Neutrophils # Man PT INR POC ABG pH POC ABG pCO2 POC ABG pO2 VBG pH Sodium 157 H Potassium 3.0 L D Chloride 114.3 H Carbon Dioxide BUN 39 H Creatinine 0.5 L Glucose 74 L POC Glucose 68 L Lactic Acid Calcium Phosphorus Magnesium AST ALT Alkaline Phosphatase Total Creatine Kinase Troponin T 0.143 H* Albumin LDL Cholesterol Direct HDL Cholesterol Urine pH Urine WBC (Auto) Crossmatch 12/29/18 12/29/18 12/29/18 00:05 00:11 00:56 WBC RBC Hgb 9.3 L D Hct 29.7 L D MCV MCH MCHC RDW Plt Count Seg Neuts % (Manual) Nucleated RBC % Seg Neutrophils # Man PT INR POC ABG pH POC ABG pCO2 POC ABG pO2 VBG pH Sodium 154 H Potassium 2.6 L* Chloride 110.7 H Carbon Dioxide BUN 34 H Creatinine 0.5 L Glucose 156 H POC Glucose 155 H Lactic Acid Calcium Phosphorus Magnesium AST ALT Alkaline Phosphatase Total Creatine Kinase Troponin T Albumin LDL Cholesterol Direct HDL Cholesterol Urine pH Urine WBC (Auto) Crossmatch 12/29/18 12/29/18 12/29/18 03:03 03:25 05:13 WBC RBC Hgb Hct MCV MCH MCHC RDW Plt Count Seg Neuts % (Manual) Nucleated RBC % Seg Neutrophils # Man PT INR POC ABG pH 7.490 H POC ABG pCO2 34.5 L POC ABG pO2 78 L VBG pH Sodium Potassium Chloride Carbon Dioxide BUN Creatinine Glucose POC Glucose 182 H Lactic Acid Calcium Phosphorus Magnesium 1.60 L AST ALT Alkaline Phosphatase Total Creatine Kinase Troponin T Albumin LDL Cholesterol Direct HDL Cholesterol Urine pH Urine WBC (Auto) Crossmatch 12/29/18 12/29/18 12/29/18 08:00 08:27 09:44 WBC RBC Hgb Hct MCV MCH MCHC RDW Plt Count Seg Neuts % (Manual) Nucleated RBC % Seg Neutrophils # Man PT INR POC ABG pH POC ABG pCO2 POC ABG pO2 VBG pH Sodium 146 H D Potassium 3.1 L Chloride 107.1 H Carbon Dioxide BUN 21 H Creatinine 0.4 L Glucose 303 H POC Glucose 278 H 309 H Lactic Acid Calcium Phosphorus Magnesium AST ALT Alkaline Phosphatase Total Creatine Kinase Troponin T Albumin LDL Cholesterol Direct HDL Cholesterol Urine pH Urine WBC (Auto) Crossmatch - Diagnostic Findings Chest x-ray: image reviewed Assessment and Plan 53 y/o male with out of hospital cardiac arrest, acute respiratory failure, hypotension requiring vasopressor therapy, lactic acidosis 1. Vasopressor support 2. Broad spec abx therapy 3. Fluid resuscitation 4. Overall prognosis is poor given amount of down time and prior brain injury already CCT 31 minutes.
[2018-12-29] MEDS ORDERED: D5W/0.45% NACL/KCL 20 MEQ 20 MEQ/1,000 ML BAG IV ONE (11:14)
--- NOTE | 2018-12-29 11:36 | Progress Note ---
Assessment and Plan Assessment and plan: Patient is a 53 yo man from [facility] with history of chronic respiratory failure due to end stage COPD on prn O2, significant debility, G-tube placement, chronic iron deficiency anemia, hypertension, seizures, stage IV sacral ulcer and osteomyelitis of the sacral region, IDDM and PAD with right above knee amputation, who presented to the ED in cardiopulmonary arrest. According to the chart, he suffered an out of the hospital cardiac arrest. At the care home was hyperglycemic and deteriorated to shortness of breath followed by bradycardia and pulselessness in route to the hospital. Patient gives no history because he is intubated, patient not responsive on vent without sedation, multiple pressors. No family present. correction records shows he is Full code. Cardiopulmonary resuscitation was performed, patient was intubated, and placed on levophed and vasopressin. He is found to be acidotic , hypercapnic, hyperglycemic and anemic. He was further treated with 2 units of PRBC and in sulin gtt. Please note at baseline patient is nonverbal. Acute on chronic respiratory failure: continue MV support, d/w [employer], CardioPulmonary arrest DKA: on insulin drip on DKA protocol Acute combined acidosis: Received sodium bicarbonate Multisystem organ failure, wtih Acute heart failure, hepatic congestion Anemia, acute on chronic anemia s/p blood transfusion SIRs with organ dysfunction remove I/O, PICC line once available then remove femoral line CCT 31 minutes History Interval history: Patient was seen and examined. Follow-up on current diagnosis of Cardiopulmonar arrest. Overnight uneventful. Patient still intubated, not sedated, Imaging, nursing note, chart, labs and old chart reviewed. Hospitalist Physical - Physical exam Narrative exam: Gen:criticall ill appearing, chronic disable, cachetic, intubated, HEENT: >left frontal head deformed, middle piece of left ear missing, missing l oose rotten teeth, sunken/wasting, pupils sluggish to nonreactive, OP dry, ETT present Neck: supple, no adenopathy, no thyromegaly, no JVD CVS/Heart: RRR, normal S1S2, pulses present bilaterally Chest/Lungs: diminished, Symmetrical chest expansion, good air entry bilaterally GI/Abdomen: PEG present, good bowel sounds, Extermity/Skin: right femoral TLC, left flores I/O iv line MSK: right lower leg amputated Neuro: not following commands Psych: confused - Constitutional Vitals: Temp Pulse Resp BP Pulse Ox 95.5 F L 60 25 H 120/71 99 12/28/18 15:45 12/29/18 10:45 12/29/18 10:45 12/29/18 10:45 12/29/18 10:45 General appearance: Absent: mild distress Results - Labs CBC & Chem 7: 12/29/18 00:56 12/29/18 08:27 Labs: Laboratory Last Values WBC 19.1 K/mm3 (4.5-11.0) H 12/28/18 07:20 RBC 2.42 M/mm3 (3.65-5.03) L 12/28/18 07:20 Hgb 9.3 gm/dl (11.8-15.2) L D 12/29/18 00:56 Hct 29.7 % (35.5-45.6) L D 12/29/18 00:56 MCV 97 fl (84-94) H 12/28/18 07:20 MCH 26 pg (28-32) L 12/28/18 07:20 MCHC 27 % (32-34) L 12/28/18 07:20 RDW 20.5 % (13.2-15.2) H 12/28/18 07:20 Plt Count 507 K/mm3 (140-440) H 12/28/18 07:20 Lymph % (Auto) Public Health Microbiologist 12/28/18 07:20 [place] % (Auto) Public Health Microbiologist 12/28/18 07:20 Eos % (Auto) Public Health Microbiologist 12/28/18 07:20 Baso % (Auto) Public Health Microbiologist 12/28/18 07:20 Lymph # Public Health Microbiologist 12/28/18 07:20 [place] # Public Health Microbiologist 12/28/18 07:20 Eos # Public Health Microbiologist 12/28/18 07:20 Baso # Public Health Microbiologist 12/28/18 07:20 Add Manual Diff Complete 12/28/18 07:20 Total Counted 100 12/28/18 07:20 Seg Neutrophils % Public Health Microbiologist 12/28/18 07:20 Seg Neuts % (Manual) 79.0 % (40.0-70.0) H 12/28/18 07:20 Band Neutrophils % 0 % 12/28/18 07:20 Lymphocytes % (Manual) 15.0 % (13.4-35.0) 12/28/18 07:20 Reactive Lymphs % (Man) 2.0 % 12/28/18 07:20 Monocytes % (Manual) 3.0 % (0.0-7.3) 12/28/18 07:20 Eosinophils % (Manual) 0 % (0.0-4.3) 12/28/18 07:20 Basophils % (Manual) 0 % (0.0-1.8) 12/28/18 07:20 Metamyelocytes % 1.0 % 12/28/18 07:20 Myelocytes % 0 % 12/28/18 07:20 Promyelocytes % 0 % 12/28/18 07:20 Blast Cells % 0 % 12/28/18 07:20 Nucleated RBC % 1.0 % (0.0-0.9) H 12/28/18 07:20 Seg Neutrophils # Public Health Microbiologist 12/28/18 07:20 Seg Neutrophils # Man 15.1 K/mm3 (1.8-7.7) H 12/28/18 07:20 Band Neutrophils # 0.0 K/mm3 12/28/18 07:20 Lymphocytes # (Manual) 2.9 K/mm3 (1.2-5.4) 12/28/18 07:20 Abs React Lymphs (Man) 0.4 K/mm3 12/28/18 07:20 Monocytes # (Manual) 0.6 K/mm3 (0.0-0.8) 12/28/18 07:20 Eosinophils # (Manual) 0.0 K/mm3 (0.0-0.4) 12/28/18 07:20 Basophils # (Manual) 0.0 K/mm3 (0.0-0.1) 12/28/18 07:20 Metamyelocytes # 0.2 K/mm3 12/28/18 07:20 Myelocytes # 0.0 K/mm3 12/28/18 07:20 Promyelocytes # 0.0 K/mm3 12/28/18 07:20 Blast Cells # 0.0 K/mm3 12/28/18 07:20 WBC Morphology Not Reportable 12/28/18 07:20 Hypersegmented Neuts Not Reportable 12/28/18 07:20 Hyposegmented Neuts Not Reportable 12/28/18 07:20 Hypogranular Neuts Not Reportable 12/28/18 07:20 Smudge Cells Not Reportable 12/28/18 07:20 Toxic Granulation 1+ 12/28/18 07:20 Toxic Vacuolation Not Reportable 12/28/18 07:20 Dohle Bodies Not Reportable 12/28/18 07:20 Pelger-Huet Anomaly Not Reportable 12/28/18 07:20 Fritz Rods Not Reportable 12/28/18 07:20 Platelet Estimate Consistent w auto 12/28/18 07:20 Clumped Platelets Not Reportable 12/28/18 07:20 Plt Clumps, EDTA Not Reportable 12/28/18 07:20 Large Platelets Not Reportable 12/28/18 07:20 Giant Platelets Not Reportable 12/28/18 07:20 Platelet Satelliting Not Reportable 12/28/18 07:20 Plt Morphology Comment Not Reportable 12/28/18 07:20 RBC Morphology Not Reportable 12/28/18 07:20 Dimorphic RBCs Not Reportable 12/28/18 07:20 Polychromasia Not Reportable 12/28/18 07:20 Hypochromasia Not Reportable 12/28/18 07:20 Poikilocytosis Not Reportable 12/28/18 07:20 Anisocytosis 1+ 12/28/18 07:20 Microcytosis Not Reportable 12/28/18 07:20 Macrocytosis Not Reportable 12/28/18 07:20 Spherocytes Not Reportable 12/28/18 07:20 Pappenheimer Bodies Not Reportable 12/28/18 07:20 Sickle Cells Not Reportable 12/28/18 07:20 Target Cells Not Reportable 12/28/18 07:20 Tear Drop Cells Few 12/28/18 07:20 Ovalocytes Not Reportable 12/28/18 07:20 Helmet Cells Not Reportable 12/28/18 07:20 [place] Bodies Not Reportable 12/28/18 07:20 [place] Rings Not Reportable 12/28/18 07:20 Holden Cells Not Reportable 12/28/18 07:20 Bite Cells Not Reportable 12/28/18 07:20 Crenated Cell Not Reportable 12/28/18 07:20 Elliptocytes Not Reportable 12/28/18 07:20 Acanthocytes (Spur) Not Reportable 12/28/18 07:20 Rouleaux 1+ 12/28/18 07:20 Hemoglobin C Crystals Not Reportable 12/28/18 07:20 Schistocytes Not Reportable 12/28/18 07:20 Malaria parasites Not Reportable 12/28/18 07:20 Gurdeep Bodies Not Reportable 12/28/18 07:20 Hem Pathologist Commnt No 12/28/18 07:20 PT 17.1 Sec. (12.2-14.9) H 12/28/18 07:20 INR 1.31 (0.87-1.13) H 12/28/18 07:20 APTT 27.5 Sec. (24.2-36.6) 12/28/18 07:20 POC ABG pH 7.490 (7.35-7.45) H 12/29/18 05:13 POC ABG pCO2 34.5 (35-45) L 12/29/18 05:13 POC ABG pO2 78 (80-105) L 12/29/18 05:13 POC ABG HCO3 26.3 (22-26 mml/L) 12/29/18 05:13 POC ABG Total CO2 27 (23-27mmol/L) 12/29/18 05:13 POC ABG O2 Sat 96 12/29/18 05:13 POC ABG Base Excess 3 ((-2) - (+3)mmol/L) 12/29/18 05:13 VBG pH 7.149 (7.320-7.420) L* 12/28/18 07:20 FiO2 50 % 12/29/18 05:13 Sodium 146 mmol/L (137-145) H D 12/29/18 08:27 Potassium 3.1 mmol/L (3.6-5.0) L 12/29/18 08:27 Chloride 107.1 mmol/L (98-107) H 12/29/18 08:27 Carbon Dioxide 23 mmol/L (22-30) 12/29/18 08:27 Anion Gap 19 mmol/L 12/29/18 08:27 BUN 21 mg/dL (9-20) H 12/29/18 08:27 Creatinine 0.4 mg/dL (0.8-1.5) L 12/29/18 08:27 Estimated GFR > 60 ml/min 12/29/18 08:27 BUN/Creatinine Ratio 53 % 12/29/18 08:27 Glucose 303 mg/dL (75-100) H 12/29/18 08:27 POC Glucose 309 (70-105) H 12/29/18 09:44 Lactic Acid 15.40 mmol/L (0.7-2.0) H* 12/28/18 07:20 Calcium 9.0 mg/dL (8.4-10.2) 12/29/18 08:27 Phosphorus 2.50 mg/dL (2.5-4.5) D 12/29/18 03:25 Magnesium 1.60 mg/dL (1.7-2.3) L 12/29/18 03:25 Total Bilirubin 0.30 mg/dL (0.1-1.2) 12/28/18 07:20 AST 325 units/L (5-40) H 12/28/18 07:20 ALT 190 units/L (7-56) H 12/28/18 07:20 Alkaline Phosphatase 132 units/L (35-129) H 12/28/18 07:20 Total Creatine Kinase 213 units/L (55-170) H 12/28/18 07:20 CK-MB (CK-2) 1.9 ng/mL (0.0-4.0) 12/28/18 07:20 CK-MB (CK-2) Rel Index 0.8 (0-4) 12/28/18 07:20 Troponin T 0.143 ng/mL (0.00-0.029) H* 12/28/18 22:20 Total Protein 6.8 g/dL (6.3-8.2) 12/28/18 07:20 Albumin 2.8 g/dL (3.9-5) L 12/28/18 07:20 Albumin/Globulin Ratio 0.7 % 12/28/18 07:20 Triglycerides 106 mg/dL (2-149) 12/28/18 07:20 Cholesterol 82 mg/dL (50-199) 12/28/18 07:20 LDL Cholesterol Direct 49 mg/dL (50-130) L 12/28/18 07:20 HDL Cholesterol 27 mg/dL (40-59) L 12/28/18 07:20 Cholesterol/HDL Ratio 3.03 % 12/28/18 07:20 TSH 0.307 mlU/mL (0.270-4.200) 12/28/18 16:36 Free T4 0.96 ng/dL (0.76-1.46) 12/28/18 16:36 Urine Color Yellow (Yellow) 12/28/18 08:02 Urine Turbidity Slightly-cloudy (Clear) 12/28/18 08:02 Urine pH 8.0 (5.0-7.0) H 12/28/18 08:02 Ur Specific Carlos 1.018 (1.003-1.030) 12/28/18 08:02 Urine Protein 100 mg/dl mg/dL (Negative) 12/28/18 08:02 Urine Glucose (UA) >=500 mg/dL (Negative) 12/28/18 08:02 Urine Ketones Neg mg/dL (Negative) 12/28/18 08:02 Urine Blood Neg (Negative) 12/28/18 08:02 Urine Nitrite Neg (Negative) 12/28/18 08:02 Urine Bilirubin Neg (Negative) 12/28/18 08:02 Urine Urobilinogen < 2.0 mg/dL (<2.0) 12/28/18 08:02 Ur Leukocyte Esterase Lg (Negative) 12/28/18 08:02 Urine WBC (Auto) 59.0 /HPF (0.0-6.0) H 12/28/18 08:02 Urine RBC (Auto) 6.0 /HPF (0.0-6.0) 12/28/18 08:02 Hyaline Casts 1 /LPF 12/28/18 08:02 Urine Yeast (Budding) 2+ /HPF 12/28/18 08:02 Blood Type B POSITIVE 12/28/18 07:20 Antibody Screen Negative 12/28/18 07:20 Crossmatch See Detail 12/28/18 07:20 Active Medications - Current Medications Current Medications: Generic Name Dose Route Start Last Admin Trade Name Freq PRN Reason Stop Dose Admin Dextrose 50 ml 12/28/18 20:31 12/28/18 23:25 D50w (25gm) Syringe IV 50 ml PRN PRN Administration Hypoglycemia Hydrophilic Ointment 1 applic 12/28/18 07:23 Vaseline Lip Therapy TP Q2HR PRN Dry Lips Norepinephrine 4 mg in 250 mls @ 7.5 mls/hr 12/28/18 08:00 12/29/18 08:11 Levophed Drip 4 Mg/Ns 250 Ml IV 20 mcg/min TITR PATRICIO 75 mls/hr Administration Protocol 2 MCG/MIN Vasopressin 20 unit/ Sodium 101 mls @ 9.09 mls/hr 12/28/18 09:00 12/28/18 19:20 Chloride IV 0.03 units/min TITR PATRICIO 10 mls/hr Titration Protocol 0.03 UNITS/MIN Insulin Human Regular 100 100 mls @ 1 mls/hr 12/28/18 09:00 12/28/18 18:14 units/ Sodium Chloride IV 12/29/18 20:46 2 units/hr TITR PATRICIO 2 mls/hr Titration Protocol 1 UNITS/HR Potassium Chloride/Dextrose/Sod Cl 20 meq in 1,000 mls @ 100 mls/hr 12/29/18 01:00 12/29/18 04:45 D5w/0.45% Nacl/Kcl 20 Meq IV 100 mls/hr DIRECT PATRICIO Administration Potassium Chloride 20 meq in 100 mls @ 100 mls/hr 12/29/18 10:00 Kcl 20meq/100ml IV 12/29/18 11:59 Q1H PATRICIO Sodium Chloride 2,000 mls @ 999 mls/hr 12/29/18 11:16 Nacl 0.9% 1000 Ml IV 12/29/18 13:16 ONCE ONE Piperacillin Sod/Tazobactam Sod 4.5 gm in 100 mls @ 200 mls/hr 12/29/18 14:00 Zosyn/Ns 4.5gm/100ml IV Q8HR [facility] Protocol Insulin Human Regular 0 units 12/28/18 23:00 12/29/18 10:06 Humulin R SUB-Q 8 units Q3HR PATRICIO Administration Protocol Multi-Ingred Cream/Lotion/Oil/Oint 1 applic 12/28/18 07:23 Artificial Tears Ophth Oint OU Q4HR PRN Dry Eye(s) Naloxone HCl 0.1 mg 12/28/18 11:28 Narcan 0.4 Mg/1 Ml IV Q2MIN PRN Res Rate </= 8 or 02 SAT < 92% Ondansetron HCl 4 mg 12/28/18 11:28 Zofran IV Q8H PRN Nausea And Vomiting Sodium Chloride 10 ml 12/28/18 22:00 Sodium Chloride Flush Syringe 10 Ml IV BID PATRICIO Sodium Chloride 10 ml 12/28/18 11:28 Sodium Chloride Flush Syringe 10 Ml IV PRN PRN LINE FLUSH Nutrition/Malnutrition Assess - Dietary Evaluation Nutrition/Malnutrition Findings: Nutrition Notes Start: 12/28/18 09:49 Freq: Status: Active Protocol: Document 12/28/18 09:49 DIA (Rec: 12/28/18 09:57 DIA [email or web address] [email or web address]) Nutrition Notes Need for Assessment generated from: MD Order Initial or Follow up Assessment Current Diagnosis COPD,Diabetes,Hypertension, Hyperlipidemia Other Pertinent Diagnosis s/p cardiac arrest, debility, stage 4 sacral ulcer, (R) AKA Current Diet No diet ordered Labs/Tests Na 160 K 5.6 BUN 67 BG 457 Ca >13 Phos 9.8 Mg 3.5 Elevated LFTs Pertinent Medications Insulin gtt, Levophed gtt, Vasopressin gtt Height 5 ft 7 in Weight 56.699 kg [place] Body Weight (kg) 67.27 BMI 19.5 Weight change and time frame Adj wt for AKA: 63.07kg Adj BMI: 21.7 Subjective/Other Information RD consulted to evaluate nutritional intake. He is in ED at this time and on vent support. He has a PEG tube and is from [place]. He also has a colostomy. Anion gap too high and electolytes unstable at this time; pt also on insulin gtt. Will await TF consult when pt more stable. Burn Absent Trauma Absent #1 Nutrition Diagnosis Inadequate oral intake [facility] As Evidenced by Signs and Symptoms pt NPO Is patient on ventilator? Yes Is Patient Ambulatory and/or Out of Bed No REE-([facility]-confined to bed) 1660.956 Kcal/Kg value to use for calculation 35 Approximate Energy Requirements Using 1984 kcal/Kg Calculation Used for Recommendations Kcal/kg Additional Notes Pro needs 1.2-2g/k-113g/ day Fluid needs 1ml/kcal Nutrition Intervention Nutrition Support: Start EN support when medically feasible Goal #1 Start EN support to meet nutrient needs Goal #2 Wt maintenance and/or gain Anticipated Discharge Needs: Continue TF Follow-Up By: 12/29/18 Additional Comments F/U: TF consult, vent status
[2018-12-29] MEDS ORDERED: NACL 0.9% 1000 ML 2,000 ML IV ONE (12:00)
[2018-12-29 12:22] LABS: Alanine Aminotransferase 177 units/L (7-56); Albumin 2.4 g/dL (3.9-5); BUN/Creatinine Ratio 48; Blood Urea Nitrogen 19 mg/dL (9-20); Hemolysis Index 0
[2018-12-29 12:54] LABS: Hematocrit 29.8 % (35.5-45.6); Hemoglobin 9.3 gm/dl (11.8-15.2); Mean Corpuscular HGB Conc 31 % (32-34); Mean Corpuscular Volume 84 fl (84-94); Platelet Count 356 K/mm3 (140-440); Red Blood Count 3.53 M/mm3 (3.65-5.03); Red Cell Distribution Width 18.3 % (13.2-15.2)
[2018-12-29] MEDS: ZOSYN/NS 4.5GM/100ML 4.5 GM/100 ML VIAL IV SCH ×2 (13:07→21:03)
[2018-12-29] MEDS: SODIUM CHLORIDE FLUSH SYRINGE 10 ML IV SCH ×2 (13:08→21:04)
[2018-12-29 14:28] LABS: Band Neutrophils # (Manual) 1.9 K/mm3; Basophils % (Manual) 0 % (0.0-1.8); Total Cells Counted 100
[2018-12-29 14:29] LABS: Platelet Estimate Consistent w Auto; Tear Drop Cells Rare
[2018-12-29] MEDS: KCL 20MEQ/100ML 20 MEQ/100 ML BAG IV SCH ×2 (15:20→16:21)
[2018-12-29] MEDS ORDERED: D50W (25GM) Syringe IV PRN (15:37)
[2018-12-29] MEDS ORDERED: LANTUS SUB-Q ONE (16:00)
[2018-12-29] MEDS: HumaLOG SUB-Q SCH (18:00)
[2018-12-30] MEDS: LEVOPHED DRIP 4 MG/NS 250 ML 4 MG/250 ML BAG IV SCH ×8 (00:11→23:18)
[2018-12-30] MEDS: HumaLOG SUB-Q SCH ×5 (00:14→23:54)
[2018-12-30] MEDS: NACL 0.9% 1000 ML 1,000 ML IV SCH ×3 (00:14→15:28)
--- NOTE | 2018-12-30 07:26 | XRay Report ---
PROCEDURE: XR CHEST 1V AP TECHNIQUE: A portable semiupright view of the chest was obtained. HISTORY: follow up respiratory failure COMPARISONS: 12/29/2018 FINDINGS: The heart size is normal. The lungs remain congested with interstitial edema. There is stable patchy airspace disease in both lower lobes. Small effusions cannot be excluded. The tip of the ET tube is 2 cm above the [place]. The bones and soft tissues otherwise are unchanged. IMPRESSION: Stable congestive heart failure pattern with bibasilar airspace disease.. This document is electronically signed by Garret Traore MD., December 30 2018 07:25:03 AM ET
[2018-12-30] MEDS: ZOSYN/NS 4.5GM/100ML 4.5 GM/100 ML VIAL IV SCH ×3 (07:27→20:30)
[2018-12-30] MEDS: LANTUS SUB-Q SCH (08:47)
[2018-12-30 09:17] LABS: Hematocrit 22.6 % (35.5-45.6); Mean Corpuscular HGB Conc 31 % (32-34); Mean Corpuscular Volume 87 fl (84-94); Platelet Count 290 K/mm3 (140-440); Red Blood Count 2.61 M/mm3 (3.65-5.03); Red Cell Distribution Width 18.6 % (13.2-15.2)
[2018-12-30 09:36] LABS: BUN/Creatinine Ratio 17; Blood Urea Nitrogen 12 mg/dL (9-20); Calcium 8.5 mg/dL (8.4-10.2); Hemolysis Index 51
--- NOTE | 2018-12-30 10:08 | Progress Note ---
Assessment and Plan 53 y/o male with out of hospital cardiac arrest, acute respiratory failure, hypotension requiring vasopressor therapy, lactic acidosis 1. No cough, no gag, no breathing over the vent. Need neurology consult. Concern for possible brain and or severe anoxic injury 2. Wean Pressors for MAPs >65. 3. Stat labs were drawn this am, but we may need to repeat them. Na went from 144 to 160 with only 2 liters of fluid. Doubt this was accurate. Likely the stick was down stream of a current infusion. 4. Hold Lantus given marginal blood sugars 5. Continue broad spec abx and follow up cultures. 6. Hgb 7 this am. 6.2 on admission. Was transfused 2 units and got up to 9. Hold on transfusion and reassess tomorrow. CCT 31 Subjective Date of service: 12/30/18 Interval history: no acute events. Patient is completely unresponsive. Not breathing over the vent. No family at bedside. patient has no cough no gag, still on pressors. Objective Vital Signs - 12hr 12/29/18 12/29/18 12/29/18 22:15 22:30 22:45 Temperature Pulse Rate 76 77 78 Pulse Rate [ From Monitor] Pulse Rate [ Left Dorsalis Pedis] Respiratory 24 24 24 Rate Blood Pressure 93/50 90/50 96/50 O2 Sat by Pulse 98 98 98 Oximetry 12/29/18 12/29/18 12/29/18 23:00 23:15 23:30 Temperature Pulse Rate 78 79 80 Pulse Rate [ From Monitor] Pulse Rate [ Left Dorsalis Pedis] Respiratory 24 24 24 Rate Blood Pressure 96/50 97/52 93/51 O2 Sat by Pulse 98 99 99 Oximetry 12/29/18 12/30/18 12/30/18 23:45 00:00 00:15 Temperature 101.8 F H Pulse Rate 80 76 81 Pulse Rate [ 81 From Monitor] Pulse Rate [ Left Dorsalis Pedis] Respiratory 24 24 24 Rate Blood Pressure 95/52 70/35 108/57 O2 Sat by Pulse 99 99 99 Oximetry 12/30/18 12/30/18 12/30/18 00:16 00:30 00:45 Temperature Pulse Rate 81 80 81 Pulse Rate [ From Monitor] Pulse Rate [ Left Dorsalis Pedis] Respiratory 24 24 24 Rate Blood Pressure 108/57 96/50 93/50 O2 Sat by Pulse 99 99 99 Oximetry 12/30/18 12/30/18 12/30/18 01:00 01:15 01:30 Temperature 100 F H Pulse Rate 81 81 82 Pulse Rate [ From Monitor] Pulse Rate [ Left Dorsalis Pedis] Respiratory 24 24 24 Rate Blood Pressure 92/52 96/51 92/52 O2 Sat by Pulse 99 99 99 Oximetry 12/30/18 12/30/18 12/30/18 01:35 01:45 02:00 Temperature Pulse Rate 81 83 83 Pulse Rate [ From Monitor] Pulse Rate [ Left Dorsalis Pedis] Respiratory 24 24 Rate Blood Pressure 92/52 96/52 93/54 O2 Sat by Pulse 99 99 99 Oximetry 12/30/18 12/30/18 12/30/18 02:15 02:30 02:45 Temperature Pulse Rate 83 83 83 Pulse Rate [ From Monitor] Pulse Rate [ Left Dorsalis Pedis] Respiratory 24 24 24 Rate Blood Pressure 92/52 92/56 101/59 O2 Sat by Pulse 98 99 99 Oximetry 12/30/18 12/30/18 12/30/18 03:00 03:15 03:30 Temperature Pulse Rate 83 84 84 Pulse Rate [ From Monitor] Pulse Rate [ Left Dorsalis Pedis] Respiratory 24 24 24 Rate Blood Pressure 93/56 97/56 94/57 O2 Sat by Pulse 99 99 99 Oximetry 12/30/18 12/30/18 12/30/18 03:45 03:47 04:00 Temperature 99.5 F Pulse Rate 84 84 Pulse Rate [ 85 From Monitor] Pulse Rate [ Left Dorsalis Pedis] Respiratory 24 24 Rate Blood Pressure 94/57 94/55 O2 Sat by Pulse 99 97 Oximetry 12/30/18 12/30/18 12/30/18 04:15 04:30 04:45 Temperature Pulse Rate 84 85 85 Pulse Rate [ From Monitor] Pulse Rate [ Left Dorsalis Pedis] Respiratory 24 24 24 Rate Blood Pressure 93/57 97/55 94/55 O2 Sat by Pulse 97 97 97 Oximetry 12/30/18 12/30/18 12/30/18 05:00 05:15 05:30 Temperature Pulse Rate 85 77 86 Pulse Rate [ From Monitor] Pulse Rate [ Left Dorsalis Pedis] Respiratory 24 24 24 Rate Blood Pressure 94/58 70/40 105/63 O2 Sat by Pulse 97 97 98 Oximetry 04/12/30/18 12/30/18 05:33 05:45 06:00 Temperature Pulse Rate 85 86 85 Pulse Rate [ From Monitor] Pulse Rate [ Left Dorsalis Pedis] Respiratory 24 24 Rate Blood Pressure 70/40 94/59 97/58 O2 Sat by Pulse 99 97 98 Oximetry 12/30/18 12/30/18 12/30/18 06:15 06:30 06:45 Temperature Pulse Rate 87 88 88 Pulse Rate [ From Monitor] Pulse Rate [ Left Dorsalis Pedis] Respiratory 24 24 24 Rate Blood Pressure 95/58 95/56 93/59 O2 Sat by Pulse 98 98 98 Oximetry 12/30/18 12/30/18 12/30/18 07:00 07:15 07:30 Temperature 98.9 F Pulse Rate 88 88 87 Pulse Rate [ From Monitor] Pulse Rate [ Left Dorsalis Pedis] Respiratory 24 24 24 Rate Blood Pressure 93/61 92/61 116/72 O2 Sat by Pulse 98 98 99 Oximetry 12/30/18 12/30/18 12/30/18 07:32 07:45 08:00 Temperature Pulse Rate 84 89 89 Pulse Rate [ From Monitor] Pulse Rate [ 90 Left Dorsalis Pedis] Respiratory 24 25 H Rate Blood Pressure 116/72 102/61 96/61 O2 Sat by Pulse 99 97 100 Oximetry 12/30/18 12/30/18 12/30/18 08:15 08:30 08:45 Temperature Pulse Rate 91 H 90 91 H Pulse Rate [ From Monitor] Pulse Rate [ Left Dorsalis Pedis] Respiratory 24 24 24 Rate Blood Pressure 94/58 113/70 97/64 O2 Sat by Pulse 98 100 100 Oximetry 12/30/18 12/30/18 12/30/18 09:00 09:15 09:30 Temperature Pulse Rate 91 H 90 90 Pulse Rate [ From Monitor] Pulse Rate [ Left Dorsalis Pedis] Respiratory 24 24 24 Rate Blood Pressure 98/59 98/63 96/57 O2 Sat by Pulse 100 100 100 Oximetry 12/30/18 09:45 Temperature Pulse Rate 90 Pulse Rate [ From Monitor] Pulse Rate [ Left Dorsalis Pedis] Respiratory 24 Rate Blood Pressure 96/59 O2 Sat by Pulse 100 Oximetry CBC and BMP: 12/30/18 08:54 12/30/18 08:54 ABG, PT/INR, D-dimer: ABG POC ABG pH 7.327 (7.35-7.45) L 12/30/18 05:34 POC ABG pCO2 35.0 (35-45) 12/30/18 05:34 POC ABG pO2 86 (80-105) 12/30/18 05:34 POC ABG HCO3 18.3 (22-26 mml/L) 12/30/18 05:34 POC ABG Total CO2 19 (23-27mmol/L) 12/30/18 05:34 POC ABG O2 Sat 96 12/30/18 05:34 PT/INR, D-dimer PT 17.1 Sec. (12.2-14.9) H 12/28/18 07:20 INR 1.31 (0.87-1.13) H 12/28/18 07:20 Abnormal lab findings: Abnormal Labs 12/28/18 12/28/18 12/28/18 06:56 07:20 07:20 WBC 19.1 H RBC 2.42 L Hgb 6.2 L Hct 23.5 L MCV 97 H MCH 26 L MCHC 27 L RDW 20.5 H Plt Count 507 H Seg Neuts % (Manual) 79.0 H Lymphocytes % (Manual) Nucleated RBC % 1.0 H Seg Neutrophils # Man 15.1 H Lymphocytes # (Manual) PT INR APTT POC ABG pH POC ABG pCO2 POC ABG pO2 VBG pH Sodium 160 H Potassium 5.6 H Chloride 108.5 H Carbon Dioxide 21 L BUN 67 H Creatinine Glucose 457 H POC Glucose 357 H Lactic Acid Calcium > 13.0 H* Phosphorus Magnesium AST 325 H ALT 190 H Alkaline Phosphatase 132 H Total Creatine Kinase 213 H Troponin T 0.568 H* Albumin 2.8 L LDL Cholesterol Direct 49 L HDL Cholesterol 27 L Urine pH Urine WBC (Auto) Crossmatch 12/28/18 12/28/18 12/28/18 07:20 07:20 07:20 WBC RBC Hgb Hct MCV MCH MCHC RDW Plt Count Seg Neuts % (Manual) Lymphocytes % (Manual) Nucleated RBC % Seg Neutrophils # Man Lymphocytes # (Manual) PT 17.1 H INR 1.31 H APTT POC ABG pH POC ABG pCO2 POC ABG pO2 VBG pH 7.149 L* Sodium Potassium Chloride Carbon Dioxide BUN Creatinine Glucose POC Glucose Lactic Acid 15.40 H* Calcium Phosphorus Magnesium AST ALT Alkaline Phosphatase Total Creatine Kinase Troponin T Albumin LDL Cholesterol Direct HDL Cholesterol Urine pH Urine WBC (Auto) Crossmatch 12/28/18 12/28/18 12/28/18 07:20 07:40 08:02 WBC RBC Hgb Hct MCV MCH MCHC RDW Plt Count Seg Neuts % (Manual) Lymphocytes % (Manual) Nucleated RBC % Seg Neutrophils # Man Lymphocytes # (Manual) PT INR APTT POC ABG pH POC ABG pCO2 POC ABG pO2 VBG pH Sodium Potassium Chloride Carbon Dioxide BUN Creatinine Glucose POC Glucose Lactic Acid Calcium Phosphorus 9.80 H Magnesium 3.50 H AST ALT Alkaline Phosphatase Total Creatine Kinase Troponin T Albumin LDL Cholesterol Direct HDL Cholesterol Urine pH 8.0 H Urine WBC (Auto) 59.0 H Crossmatch See Detail 12/28/18 12/28/18 12/28/18 08:03 10:02 10:10 WBC RBC Hgb Hct MCV MCH MCHC RDW Plt Count Seg Neuts % (Manual) Lymphocytes % (Manual) Nucleated RBC % Seg Neutrophils # Man Lymphocytes # (Manual) PT INR APTT POC ABG pH 7.170 L POC ABG pCO2 60.4 H 45.3 H POC ABG pO2 135 H VBG pH Sodium Potassium Chloride Carbon Dioxide BUN Creatinine Glucose POC Glucose 288 H Lactic Acid Calcium Phosphorus Magnesium AST ALT Alkaline Phosphatase Total Creatine Kinase Troponin T Albumin LDL Cholesterol Direct HDL Cholesterol Urine pH Urine WBC (Auto) Crossmatch 12/28/18 12/28/18 12/28/18 11:14 12:34 14:05 WBC RBC Hgb Hct MCV MCH MCHC RDW Plt Count Seg Neuts % (Manual) Lymphocytes % (Manual) Nucleated RBC % Seg Neutrophils # Man Lymphocytes # (Manual) PT INR APTT POC ABG pH POC ABG pCO2 POC ABG pO2 VBG pH Sodium Potassium Chloride Carbon Dioxide BUN Creatinine Glucose POC Glucose 268 H 255 H 285 H Lactic Acid Calcium Phosphorus Magnesium AST ALT Alkaline Phosphatase Total Creatine Kinase Troponin T Albumin LDL Cholesterol Direct HDL Cholesterol Urine pH Urine WBC (Auto) Crossmatch 12/28/18 12/28/18 12/28/18 15:13 16:36 16:45 WBC RBC Hgb Hct MCV MCH MCHC RDW Plt Count Seg Neuts % (Manual) Lymphocytes % (Manual) Nucleated RBC % Seg Neutrophils # Man Lymphocytes # (Manual) PT INR APTT POC ABG pH POC ABG pCO2 POC ABG pO2 VBG pH Sodium 159 H Potassium 3.2 L D Chloride 115.2 H Carbon Dioxide 31 H D BUN 51 H Creatinine 0.7 L Glucose 159 H POC Glucose 214 H 168 H Lactic Acid Calcium 10.3 H D Phosphorus Magnesium AST ALT Alkaline Phosphatase Total Creatine Kinase Troponin T Albumin LDL Cholesterol Direct HDL Cholesterol Urine pH Urine WBC (Auto) Crossmatch 12/28/18 12/28/18 12/28/18 19:09 19:09 21:45 WBC RBC Hgb Hct MCV MCH MCHC RDW Plt Count Seg Neuts % (Manual) Lymphocytes % (Manual) Nucleated RBC % Seg Neutrophils # Man Lymphocytes # (Manual) PT INR APTT POC ABG pH POC ABG pCO2 POC ABG pO2 VBG pH Sodium 159 H 159 H Potassium 3.3 L Chloride 115.9 H 115.0 H Carbon Dioxide BUN 44 H 41 H Creatinine 0.7 L 0.6 L Glucose POC Glucose Lactic Acid Calcium Phosphorus Magnesium AST ALT Alkaline Phosphatase Total Creatine Kinase Troponin T 0.161 H* D Albumin LDL Cholesterol Direct HDL Cholesterol Urine pH Urine WBC (Auto) Crossmatch 12/28/18 12/28/18 12/28/18 22:20 22:20 23:11 WBC RBC Hgb Hct MCV MCH MCHC RDW Plt Count Seg Neuts % (Manual) Lymphocytes % (Manual) Nucleated RBC % Seg Neutrophils # Man Lymphocytes # (Manual) PT INR APTT POC ABG pH POC ABG pCO2 POC ABG pO2 VBG pH Sodium 157 H Potassium 3.0 L D Chloride 114.3 H Carbon Dioxide BUN 39 H Creatinine 0.5 L Glucose 74 L POC Glucose 68 L Lactic Acid Calcium Phosphorus Magnesium AST ALT Alkaline Phosphatase Total Creatine Kinase Troponin T 0.143 H* Albumin LDL Cholesterol Direct HDL Cholesterol Urine pH Urine WBC (Auto) Crossmatch 12/29/18 12/29/18 12/29/18 00:05 00:11 00:56 WBC RBC Hgb 9.3 L D Hct 29.7 L D MCV MCH MCHC RDW Plt Count Seg Neuts % (Manual) Lymphocytes % (Manual) Nucleated RBC % Seg Neutrophils # Man Lymphocytes # (Manual) PT INR APTT POC ABG pH POC ABG pCO2 POC ABG pO2 VBG pH Sodium 154 H Potassium 2.6 L* Chloride 110.7 H Carbon Dioxide BUN 34 H Creatinine 0.5 L Glucose 156 H POC Glucose 155 H Lactic Acid Calcium Phosphorus Magnesium AST ALT Alkaline Phosphatase Total Creatine Kinase Troponin T Albumin LDL Cholesterol Direct HDL Cholesterol Urine pH Urine WBC (Auto) Crossmatch 12/29/18 12/29/18 12/29/18 03:03 03:25 05:13 WBC RBC Hgb Hct MCV MCH MCHC RDW Plt Count Seg Neuts % (Manual) Lymphocytes % (Manual) Nucleated RBC % Seg Neutrophils # Man Lymphocytes # (Manual) PT INR APTT POC ABG pH 7.490 H POC ABG pCO2 34.5 L POC ABG pO2 78 L VBG pH Sodium Potassium Chloride Carbon Dioxide BUN Creatinine Glucose POC Glucose 182 H Lactic Acid Calcium Phosphorus Magnesium 1.60 L AST ALT Alkaline Phosphatase Total Creatine Kinase Troponin T Albumin LDL Cholesterol Direct HDL Cholesterol Urine pH Urine WBC (Auto) Crossmatch 12/29/18 12/29/18 12/29/18 08:00 08:27 09:44 WBC RBC Hgb Hct MCV MCH MCHC RDW Plt Count Seg Neuts % (Manual) Lymphocytes % (Manual) Nucleated RBC % Seg Neutrophils # Man Lymphocytes # (Manual) PT INR APTT POC ABG pH POC ABG pCO2 POC ABG pO2 VBG pH Sodium 146 H D Potassium 3.1 L Chloride 107.1 H Carbon Dioxide BUN 21 H Creatinine 0.4 L Glucose 303 H POC Glucose 278 H 309 H Lactic Acid Calcium Phosphorus Magnesium AST ALT Alkaline Phosphatase Total Creatine Kinase Troponin T Albumin LDL Cholesterol Direct HDL Cholesterol Urine pH Urine WBC (Auto) Crossmatch 12/29/18 12/29/18 12/29/18 11:39 11:39 11:39 WBC RBC 3.53 L Hgb 9.3 L Hct 29.8 L MCV MCH 26 L MCHC 31 L RDW 18.3 H Plt Count Seg Neuts % (Manual) Lymphocytes % (Manual) 5.0 L Nucleated RBC % 1.0 H Seg Neutrophils # Man Lymphocytes # (Manual) 0.5 L PT INR APTT 38.7 H POC ABG pH POC ABG pCO2 POC ABG pO2 VBG pH Sodium Potassium Chloride Carbon Dioxide BUN Creatinine Glucose POC Glucose Lactic Acid 2.60 H* Calcium Phosphorus Magnesium AST ALT Alkaline Phosphatase Total Creatine Kinase Troponin T Albumin LDL Cholesterol Direct HDL Cholesterol Urine pH Urine WBC (Auto) Crossmatch 12/29/18 12/29/18 12/29/18 11:39 12:09 13:23 WBC RBC Hgb Hct MCV MCH MCHC RDW Plt Count Seg Neuts % (Manual) Lymphocytes % (Manual) Nucleated RBC % Seg Neutrophils # Man Lymphocytes # (Manual) PT INR APTT POC ABG pH POC ABG pCO2 POC ABG pO2 VBG pH Sodium Potassium 3.3 L Chloride Carbon Dioxide BUN Creatinine 0.4 L Glucose 333 H POC Glucose 321 H Lactic Acid 2.80 H* Calcium Phosphorus Magnesium AST 197 H ALT 177 H Alkaline Phosphatase Total Creatine Kinase Troponin T Albumin 2.4 L LDL Cholesterol Direct HDL Cholesterol Urine pH Urine WBC (Auto) Crossmatch 12/29/18 12/29/18 12/29/18 15:22 15:37 17:54 WBC RBC Hgb Hct MCV MCH MCHC RDW Plt Count Seg Neuts % (Manual) Lymphocytes % (Manual) Nucleated RBC % Seg Neutrophils # Man Lymphocytes # (Manual) PT INR APTT POC ABG pH POC ABG pCO2 POC ABG pO2 VBG pH Sodium Potassium Chloride Carbon Dioxide BUN Creatinine Glucose POC Glucose 373 H 209 H Lactic Acid 3.50 H* Calcium Phosphorus Magnesium AST ALT Alkaline Phosphatase Total Creatine Kinase Troponin T Albumin LDL Cholesterol Direct HDL Cholesterol Urine pH Urine WBC (Auto) Crossmatch 12/29/18 12/29/18 12/30/18 21:13 23:05 05:34 WBC RBC Hgb Hct MCV MCH MCHC RDW Plt Count Seg Neuts % (Manual) Lymphocytes % (Manual) Nucleated RBC % Seg Neutrophils # Man Lymphocytes # (Manual) PT INR APTT POC ABG pH 7.327 L POC ABG pCO2 POC ABG pO2 VBG pH Sodium Potassium Chloride Carbon Dioxide BUN Creatinine Glucose POC Glucose Lactic Acid 3.90 H* 2.20 H* Calcium Phosphorus Magnesium AST ALT Alkaline Phosphatase Total Creatine Kinase Troponin T Albumin LDL Cholesterol Direct HDL Cholesterol Urine pH Urine WBC (Auto) Crossmatch 12/30/18 12/30/18 12/30/18 07:58 08:54 08:54 WBC 17.3 H RBC 2.61 L Hgb 7.0 L Hct 22.6 L D MCV MCH 27 L MCHC 31 L RDW 18.6 H Plt Count Seg Neuts % (Manual) Lymphocytes % (Manual) Nucleated RBC % Seg Neutrophils # Man Lymphocytes # (Manual) PT INR APTT POC ABG pH POC ABG pCO2 POC ABG pO2 VBG pH Sodium 160 H D Potassium 3.3 L Chloride 132.7 H Carbon Dioxide 15 L D BUN Creatinine 0.7 L D Glucose 116 H POC Glucose 116 H Lactic Acid Calcium Phosphorus 2.00 L Magnesium AST ALT Alkaline Phosphatase Total Creatine Kinase Troponin T Albumin LDL Cholesterol Direct HDL Cholesterol Urine pH Urine WBC (Auto) Crossmatch
[2018-12-30] MEDS: KCL 20MEQ/100ML 20 MEQ/100 ML BAG IV SCH ×3 (10:25→13:00)
[2018-12-30] MEDS: SODIUM CHLORIDE FLUSH SYRINGE 10 ML IV SCH ×2 (10:27→22:31)
--- NOTE | 2018-12-30 10:34 | Progress Note ---
Assessment and Plan Assessment and plan: Patient is a 53 yo man from [facility] with history of chronic respiratory failure due to end stage COPD on prn O2, significant debility, G-tube placement, chronic iron deficiency anemia, hypertension, seizures, stage IV sacral ulcer and osteomyelitis of the sacral region, IDDM and PAD with right above knee amputation, who presented to the ED in cardiopulmonary arrest. According to the chart, he suffered an out of the hospital cardiac arrest. At the [facility] was hyperglycemic and deteriorated to shortness of breath followed by bradycardia and pulselessness in route to the hospital. Patient gives no history because he is intubated, patient not responsive on vent without sedation, multiple pressors. No family present. care home records shows he is Full code. Cardiopulmonary resuscitation was performed, patient was intubated, and placed on levophed and vasopressin. He is found to be acidotic , hypercapnic, hyperglycemic and anemic. He was further treated with 2 units of PRBC and in sulin gtt. Please note at baseline patient is nonverbal. Acute on chronic respiratory failure: continue MV support, d/w Discovery Guide, CardioPulmonary arrest DKA: on insulin drip on DKA protocol Acute combined acidosis: Received sodium bicarbonate Multisystem organ failure, wtih Acute heart failure, hepatic congestion Anemia, acute on chronic anemia s/p blood transfusion SIRs with organ dysfunction Full code DVT ppx scd because severe anemia s/p blood transfusion removed I/O, I ordered PICC line then remove right femoral TLC line I spoke with patient sister Chetna Zamorano over the phone [phone], she is his sister. Patient does have 4 kids in [place] but they are really involved in his care. I informed her that I have concern for possible brain and/or severe anoxic injury. She will call her other brother and let us know about code status Consult Dr. Abdulaziz Marion, for brain evaluation tomorrow. CCT 33 History Interval history: Patient was seen and examined. Follow-up on current diagnosis of Cardiopulmonar arrest. Overnight uneventful. Patient still intubated, not sedated, Imaging, nursing note, chart, labs and old chart reviewed. Hospitalist Physical - Physical exam Narrative exam: Gen:criticall ill appearing, chronic disable, cachetic, intubated, HEENT: >left frontal head deformed, middle piece of left ear missing, missing loose rotten teeth, sunken/wasting, pupils nonreactive, OP dry, ETT present, no gag Neck: supple, no adenopathy, no thyromegaly, no JVD CVS/Heart: RRR, normal S1S2, pulses present bilaterally Chest/Lungs: diminished, Symmetrical chest expansion, good air entry bilaterally GI/Abdomen: PEG present, good bowel sounds, Extermity/Skin: right femoral TLC, left flores I/O iv line MSK: right lower leg amputated Neuro: no movement Psych: comatose, poa - Constitutional Vitals: Temp Pulse Resp BP Pulse Ox 98.9 F 90 24 96/59 100 12/30/18 07:00 12/30/18 09:45 12/30/18 09:45 12/30/18 09:45 12/30/18 09:45 General appearance: Absent: mild distress Results - Labs CBC & Chem 7: 12/30/18 08:54 12/30/18 08:54 Labs: Laboratory Last Values WBC 17.3 K/mm3 (4.5-11.0) H 12/30/18 08:54 RBC 2.61 M/mm3 (3.65-5.03) L 12/30/18 08:54 Hgb 7.0 gm/dl (11.8-15.2) L 12/30/18 08:54 Hct 22.6 % (35.5-45.6) L D 12/30/18 08:54 MCV 87 fl (84-94) 12/30/18 08:54 MCH 27 pg (28-32) L 12/30/18 08:54 MCHC 31 % (32-34) L 12/30/18 08:54 RDW 18.6 % (13.2-15.2) H 12/30/18 08:54 Plt Count 290 K/mm3 (140-440) 12/30/18 08:54 Lymph % (Auto) Wreath Machine Tender 12/28/18 07:20 [place] % (Auto) Wreath Machine Tender 12/28/18 07:20 Eos % (Auto) Wreath Machine Tender 12/28/18 07:20 Baso % (Auto) Wreath Machine Tender 12/28/18 07:20 Lymph # Wreath Machine Tender 12/28/18 07:20 [place] # Wreath Machine Tender 12/28/18 07:20 Eos # Wreath Machine Tender 12/28/18 07:20 Baso # Wreath Machine Tender 12/28/18 07:20 Add Manual Diff Complete 12/29/18 11:39 Total Counted 100 12/29/18 11:39 Seg Neutrophils % Wreath Machine Tender 12/28/18 07:20 Seg Neuts % (Manual) 62.0 % (40.0-70.0) 12/29/18 11:39 Band Neutrophils % 18.0 % 12/29/18 11:39 Lymphocytes % (Manual) 5.0 % (13.4-35.0) L 12/29/18 11:39 Reactive Lymphs % (Man) 0 % 12/29/18 11:39 Monocytes % (Manual) 3.0 % (0.0-7.3) 12/29/18 11:39 Eosinophils % (Manual) 3.0 % (0.0-4.3) 12/29/18 11:39 Basophils % (Manual) 0 % (0.0-1.8) 12/29/18 11:39 Metamyelocytes % 9.0 % 12/29/18 11:39 Myelocytes % 0 % 12/29/18 11:39 Promyelocytes % 0 % 12/29/18 11:39 Blast Cells % 0 % 12/29/18 11:39 Nucleated RBC % 1.0 % (0.0-0.9) H 12/29/18 11:39 Seg Neutrophils # Wreath Machine Tender 12/28/18 07:20 Seg Neutrophils # Man 6.7 K/mm3 (1.8-7.7) 12/29/18 11:39 Band Neutrophils # 1.9 K/mm3 12/29/18 11:39 Lymphocytes # (Manual) 0.5 K/mm3 (1.2-5.4) L 12/29/18 11:39 Abs React Lymphs (Man) 0.0 K/mm3 12/29/18 11:39 Monocytes # (Manual) 0.3 K/mm3 (0.0-0.8) 12/29/18 11:39 Eosinophils # (Manual) 0.3 K/mm3 (0.0-0.4) 12/29/18 11:39 Basophils # (Manual) 0.0 K/mm3 (0.0-0.1) 12/29/18 11:39 Metamyelocytes # 1.0 K/mm3 12/29/18 11:39 Myelocytes # 0.0 K/mm3 12/29/18 11:39 Promyelocytes # 0.0 K/mm3 12/29/18 11:39 Blast Cells # 0.0 K/mm3 12/29/18 11:39 WBC Morphology Not Reportable 12/29/18 11:39 Hypersegmented Neuts Not Reportable 12/29/18 11:39 Hyposegmented Neuts Not Reportable 12/29/18 11:39 Hypogranular Neuts Not Reportable 12/29/18 11:39 Smudge Cells Not Reportable 12/29/18 11:39 Toxic Granulation Not Reportable 12/29/18 11:39 Toxic Vacuolation Not Reportable 12/29/18 11:39 Dohle Bodies Not Reportable 12/29/18 11:39 Pelger-Huet Anomaly Not Reportable 12/29/18 11:39 Fritz Rods Not Reportable 12/29/18 11:39 Platelet Estimate Consistent w auto 12/29/18 11:39 Clumped Platelets Not Reportable 12/29/18 11:39 Plt Clumps, EDTA Not Reportable 12/29/18 11:39 Large Platelets Not Reportable 12/29/18 11:39 Giant Platelets Not Reportable 12/29/18 11:39 Platelet Satelliting Not Reportable 12/29/18 11:39 Plt Morphology Comment Not Reportable 12/29/18 11:39 RBC Morphology Not Reportable 12/29/18 11:39 Dimorphic RBCs Not Reportable 12/29/18 11:39 Polychromasia Rare 12/29/18 11:39 Hypochromasia Not Reportable 12/29/18 11:39 Poikilocytosis Not Reportable 12/29/18 11:39 Anisocytosis Not Reportable 12/29/18 11:39 Microcytosis Not Reportable 12/29/18 11:39 Macrocytosis Not Reportable 12/29/18 11:39 Spherocytes Not Reportable 12/29/18 11:39 Pappenheimer Bodies Not Reportable 12/29/18 11:39 Sickle Cells Not Reportable 12/29/18 11:39 Target Cells Not Reportable 12/29/18 11:39 Tear Drop Cells Rare 12/29/18 11:39 Ovalocytes Not Reportable 12/29/18 11:39 Helmet Cells Not Reportable 12/29/18 11:39 Marcelo-[place] Bodies Not Reportable 12/29/18 11:39 [place] Rings Not Reportable 12/29/18 11:39 [place] Cells Not Reportable 12/29/18 11:39 Bite Cells Not Reportable 12/29/18 11:39 Crenated Cell Not Reportable 12/29/18 11:39 Elliptocytes Rare 12/29/18 11:39 Acanthocytes (Spur) Not Reportable 12/29/18 11:39 Rouleaux Not Reportable 12/29/18 11:39 Hemoglobin C Crystals Not Reportable 12/29/18 11:39 Schistocytes Not Reportable 12/29/18 11:39 Malaria parasites Not Reportable 12/29/18 11:39 Gurdeep Bodies Not Reportable 12/29/18 11:39 Hem Pathologist Commnt No 12/29/18 11:39 PT 17.1 Sec. (12.2-14.9) H 12/28/18 07:20 INR 1.31 (0.87-1.13) H 12/28/18 07:20 APTT 38.7 Sec. (24.2-36.6) H 12/29/18 11:39 POC ABG pH 7.327 (7.35-7.45) L 12/30/18 05:34 POC ABG pCO2 35.0 (35-45) 12/30/18 05:34 POC ABG pO2 86 (80-105) 12/30/18 05:34 POC ABG HCO3 18.3 (22-26 mml/L) 12/30/18 05:34 POC ABG Total CO2 19 (23-27mmol/L) 12/30/18 05:34 POC ABG O2 Sat 96 12/30/18 05:34 POC ABG Base Excess -8 ((-2) - (+3)mmol/L) 12/30/18 05:34 VBG pH 7.149 (7.320-7.420) L* 12/28/18 07:20 FiO2 50 % 12/30/18 05:34 Sodium 160 mmol/L (137-145) H D 12/30/18 08:54 Potassium 3.3 mmol/L (3.6-5.0) L 12/30/18 08:54 Chloride 132.7 mmol/L (98-107) H 12/30/18 08:54 Carbon Dioxide 15 mmol/L (22-30) L D 12/30/18 08:54 Anion Gap 16 mmol/L 12/30/18 08:54 BUN 12 mg/dL (9-20) 12/30/18 08:54 Creatinine 0.7 mg/dL (0.8-1.5) L D 12/30/18 08:54 Estimated GFR > 60 ml/min 12/30/18 08:54 BUN/Creatinine Ratio 17 % 12/30/18 08:54 Glucose 116 mg/dL (75-100) H 12/30/18 08:54 POC Glucose 116 (70-105) H 12/30/18 07:58 Lactic Acid 2.20 mmol/L (0.7-2.0) H* 12/29/18 23:05 Calcium 8.5 mg/dL (8.4-10.2) 12/30/18 08:54 Phosphorus 2.00 mg/dL (2.5-4.5) L 12/30/18 08:54 Magnesium 1.90 mg/dL (1.7-2.3) 12/30/18 08:54 Total Bilirubin 0.50 mg/dL (0.1-1.2) 12/29/18 11:39 AST 197 units/L (5-40) H 12/29/18 11:39 ALT 177 units/L (7-56) H 12/29/18 11:39 Alkaline Phosphatase 122 units/L (35-129) 12/29/18 11:39 Total Creatine Kinase 213 units/L (55-170) H 12/28/18 07:20 CK-MB (CK-2) 1.9 ng/mL (0.0-4.0) 12/28/18 07:20 CK-MB (CK-2) Rel Index 0.8 (0-4) 12/28/18 07:20 Troponin T 0.143 ng/mL (0.00-0.029) H* 12/28/18 22:20 Total Protein 7.3 g/dL (6.3-8.2) 12/29/18 11:39 Albumin 2.4 g/dL (3.9-5) L 12/29/18 11:39 Albumin/Globulin Ratio 0.5 % 12/29/18 11:39 Triglycerides 106 mg/dL (2-149) 12/28/18 07:20 Cholesterol 82 mg/dL (50-199) 12/28/18 07:20 LDL Cholesterol Direct 49 mg/dL (50-130) L 12/28/18 07:20 HDL Cholesterol 27 mg/dL (40-59) L 12/28/18 07:20 Cholesterol/HDL Ratio 3.03 % 12/28/18 07:20 TSH 0.307 mlU/mL (0.270-4.200) 12/28/18 16:36 Free T4 0.96 ng/dL (0.76-1.46) 12/28/18 16:36 Urine Color Yellow (Yellow) 12/28/18 08:02 Urine Turbidity Slightly-cloudy (Clear) 12/28/18 08:02 Urine pH 8.0 (5.0-7.0) H 12/28/18 08:02 Ur Specific [place] 1.018 (1.003-1.030) 12/28/18 08:02 Urine Protein 100 mg/dl mg/dL (Negative) 12/28/18 08:02 Urine Glucose (UA) >=500 mg/dL (Negative) 12/28/18 08:02 Urine Ketones Neg mg/dL (Negative) 12/28/18 08:02 Urine Blood Neg (Negative) 12/28/18 08:02 Urine Nitrite Neg (Negative) 12/28/18 08:02 Urine Bilirubin Neg (Negative) 12/28/18 08:02 Urine Urobilinogen < 2.0 mg/dL (<2.0) 12/28/18 08:02 Ur Leukocyte Esterase Lg (Negative) 12/28/18 08:02 Urine WBC (Auto) 59.0 /HPF (0.0-6.0) H 12/28/18 08:02 Urine RBC (Auto) 6.0 /HPF (0.0-6.0) 12/28/18 08:02 Hyaline Casts 1 /LPF 12/28/18 08:02 Urine Yeast (Budding) 2+ /HPF 12/28/18 08:02 Blood Type B POSITIVE 12/28/18 07:20 Antibody Screen Negative 12/28/18 07:20 Crossmatch See Detail 12/28/18 07:20 Active Medications - Current Medications Current Medications: Generic Name Dose Route Start Last Admin Trade Name Freq PRN Reason Stop Dose Admin Dextrose 50 ml 12/29/18 15:37 D50w (25gm) Syringe IV PRN PRN Hypoglycemia Hydrophilic Ointment 1 applic 12/28/18 07:23 Vaseline Lip Therapy TP Q2HR PRN Dry Lips Norepinephrine 4 mg in 250 mls @ 7.5 mls/hr 12/28/18 08:00 12/30/18 07:28 Levophed Drip 4 Mg/Ns 250 Ml IV 26 mcg/min TITR PATRICIO 97.5 mls/hr Administration Protocol 2 MCG/MIN Piperacillin Sod/Tazobactam Sod 4.5 gm in 100 mls @ 200 mls/hr 12/29/18 12:00 12/30/18 07:27 Zosyn/Ns 4.5gm/100ml IV 200 mls/hr Q8H PATRICIO Administration Protocol Sodium Chloride 1,000 mls @ 125 mls/hr 12/29/18 16:00 12/30/18 07:28 Nacl 0.9% 1000 Ml IV 125 mls/hr DIRECT PATRICIO Administration Magnesium Sulfate 2 gm in 50 mls @ 25 mls/hr 12/30/18 11:00 Magnesium Sulfate 2gm/50ml IV 12/30/18 12:59 ONCE ONE Potassium Chloride 20 meq in 100 mls @ 100 mls/hr 12/30/18 11:00 Kcl 20meq/100ml IV 12/30/18 13:59 Q1H [facility] Insulin Glargine 10 units 12/30/18 08:00 12/30/18 08:47 Lantus SUB-Q Not Given QAMDIAB [facility] Insulin Human Lispro 0 unit 12/29/18 18:00 12/30/18 07:21 Humalog SUB-Q Not Given Q6HR [facility] Protocol Multi-Ingred Cream/Lotion/Oil/Oint 1 applic 12/28/18 07:23 Artificial Tears Ophth Oint OU Q4HR PRN Dry Eye(s) Naloxone HCl 0.1 mg 12/28/18 11:28 Narcan 0.4 Mg/1 Ml IV Q2MIN PRN Res Rate </= 8 or 02 SAT < 92% Ondansetron HCl 4 mg 12/28/18 11:28 Zofran IV Q8H PRN Nausea And Vomiting Sodium Chloride 10 ml 12/28/18 22:00 04/13/19 21:04 Sodium Chloride Flush Syringe 10 Ml IV 10 ml BID PATRICIO Administration Sodium Chloride 10 ml 12/28/18 11:28 Sodium Chloride Flush Syringe 10 Ml IV PRN PRN LINE FLUSH Nutrition/Malnutrition Assess - Dietary Evaluation Nutrition/Malnutrition Findings: Nutrition Notes Start: 12/28/18 09:49 Freq: Status: Active Protocol: Document 12/29/18 13:30 RM (Rec: 12/29/18 13:35 RM [email or web address]) Nutrition Notes Initial or Follow up Brief Note Current Diet NPO Labs/Tests Na 144, K 3.3, BUN 19, BG 333 Subjective/Other Information Labs stabilizing. Pt remains on vent. No TF consult yet. Nutrition Intervention Follow-Up By: 12/31/18 Additional Comments Follow for TF consult
[2018-12-30] MEDS ORDERED: MAGNESIUM SULFATE 2GM/50ML 2 GM/50 ML BAG IV ONE (11:00)
--- NOTE | 2018-12-30 13:18 | XRay Report ---
PROCEDURE: XR CHEST 1V AP TECHNIQUE: Single frontal view of the chest HISTORY: PICC PLACEMENT COMPARISONS: 12/30/2018 FINDINGS: Right upper extremity PICC line with tip at the superior cavoatrial junction. Endotracheal tube tip in the midtrachea. The cardiomediastinal silhouette is normal in appearance. Silhouetting of the right hemidiaphragm. Streaky atelectasis at the left lung base. No acute bony or soft tissue abnormality. IMPRESSION: Right upper extremity PICC line with tip at the superior cavoatrial junction. Bibasilar atelectasis. . This document is electronically signed by Octavia Mckinney MD., December 30 2018 01:16:01 PM ET
[2018-12-30] MEDS ORDERED: SODIUM BICARBONATE FEEDTUBE PRN (13:52)
[2018-12-30] MEDS ORDERED: SIMPLE SYRUP FEEDTUBE PRN ×2 (13:52)
[2018-12-30] MEDS ORDERED: PANCREAZE DR 10,500 UNIT FEEDTUBE PRN (13:52)
[2018-12-30] MEDS ORDERED: Vasostrict 20 UNIT in NACL 0.9% 100 ML IV STA (18:43)
[2018-12-30] MEDS ORDERED: NEO-SYNEPHRINE 100 MG in NACL 0.9% 90 ML IV STA (18:43)
[2018-12-31] MEDS: LEVOPHED DRIP 4 MG/NS 250 ML 4 MG/250 ML BAG IV SCH ×3 (01:30→08:15)
--- NOTE | 2018-12-31 02:48 | XRay Report ---
PROCEDURE: XR CHEST 1V AP TECHNIQUE: Chest radiograph single view. HISTORY: follow up respiratory failure COMPARISONS: None . FINDINGS: Heart: Normal. Mediastinum/Vessels: Normal. Lungs/Pleural space: Mild vascular congestion.. Bony thorax: No acute osseous abnormality. Life support devices: The endotracheal tube ends 2 cm above the [place]. Right PICC catheter ends in t he SVC. IMPRESSION: Vascular congestion. The endotracheal tube and right PICC catheter are properly position ed.. This document is electronically signed by Carline Rodríguez DO., December 31 2018 02:46:27 AM ET
[2018-12-31] MEDS: ZOSYN/NS 4.5GM/100ML 4.5 GM/100 ML VIAL IV SCH ×3 (03:39→19:30)
[2018-12-31] MEDS: HumaLOG SUB-Q SCH ×3 (06:10→18:13)
[2018-12-31 06:39] LABS: Blood Urea Nitrogen TNR mg/dL (9-20)
[2018-12-31 06:40] LABS: Alanine Aminotransferase TNR units/L (7-56); Albumin TNR g/dL (3.9-5); BUN/Creatinine Ratio TNR; Calcium TNR mg/dL (8.4-10.2)
[2018-12-31 06:41] LABS: Hemolysis Index TNR
[2018-12-31] MEDS: NACL 0.9% 1000 ML 1,000 ML IV SCH (06:56)
[2018-12-31] MEDS: SODIUM CHLORIDE FLUSH SYRINGE 10 ML IV SCH ×3 (07:28→21:15)
[2018-12-31] MEDS: HumuLIN R SUB-Q SCH (07:29)
[2018-12-31] MEDS: Vasostrict 20 UNIT in NACL 0.9% 100 ML IV SCH ×2 (08:00→15:10)
[2018-12-31 08:27] LABS: BUN/Creatinine Ratio TNR; Blood Urea Nitrogen TNR mg/dL (9-20)
[2018-12-31 08:28] LABS: Alanine Aminotransferase TNR units/L (7-56); Calcium TNR mg/dL (8.4-10.2)
[2018-12-31 08:29] LABS: Albumin TNR g/dL (3.9-5); Hemolysis Index TNR
[2018-12-31] MEDS: LANTUS SUB-Q SCH (08:46)
[2018-12-31 09:17] LABS: Alanine Aminotransferase 93 units/L (7-56); Albumin 1.9 g/dL (3.9-5); BUN/Creatinine Ratio 16; Blood Urea Nitrogen 13 mg/dL (9-20); Hemolysis Index 10
--- NOTE | 2018-12-31 09:33 | Progress Note ---
Assessment and Plan Assessment and plan: Patient is a 53 yo man from [facility] with history of chronic respiratory failure due to end stage COPD on prn O2, significant debility, G-tube placement, chronic iron deficiency anemia, hypertension, seizures, stage IV sacral ulcer and osteomyelitis of the sacral region, IDDM and PAD with right above knee amputation, who presented to the ED in cardiopulmonary arrest. According to the chart, he suffered an out of the hospital cardiac arrest. At the intermediate was hyperglycemic and deteriorated to shortness of breath followed by bradycardia and pulselessness in route to the hospital. Patient gives no history because he is intubated, patient not responsive on vent without sedation, multiple pressors. No family present. long term records shows he is Full code. Cardiopulmonary resuscitation was performed, patient was intubated, and placed on levophed and vasopressin. He is found to be acidotic , hypercapnic, hyperglycemic and anemic. He was further treated with 2 units of PRBC and in sulin gtt. Please note at baseline patient is nonverbal. Acute on chronic respiratory failure: continue MV support, d/w Spa Technician, CardioPulmonary arrest DKA: on insulin drip on DKA protocol Acute combined acidosis: Received sodium bicarbonate Multisystem organ failure, wtih Acute heart failure, hepatic congestion Anemia, acute on chronic anemia s/p blood transfusion SIRs with organ dysfunction Full code DVT ppx scd because severe anemia s/p blood transfusion removed I/O, I ordered PICC line then remove right femoral TLC line I spoke with patient sister Chetna Zamorano over the phone [phone], she is his sister. Patient does have 4 kids in [place] but they are really involved in his care. I informed her that I have concern for possible brain and/or severe anoxic injury. She will call her other brother and let us know about code status Consulted Dr. Abdulaziz Marion, for brain evaluation tomorrow. Await evaluation SEVERE Hypernatremia and hypokalemia; replete and stop nss, change to D5W, give sodium bicarbonate currently on IV Levophed and Vasopressin CCT 34 minutes History Interval history: Patient was seen and examined. Follow-up on current diagnosis of Cardiopulmonar arrest. Overnight uneventful. Patient still intubated, not sedated, Imaging, nursing note, chart, labs and old chart reviewed. Hospitalist Physical - Physical exam Narrative exam: Gen:criticall ill appearing, chronic disable, cachetic, intubated, HEENT: >left frontal head deformed, middle piece of left ear missing, missing loose rotten teeth, sunken/wasting, pupils nonreactive, OP dry, ETT present, no gag Neck: supple, no adenopathy, no thyromegaly, no JVD CVS/Heart: RRR, normal S1S2, pulses present bilaterally Chest/Lungs: diminished, Symmetrical chest expansion, good air entry bilaterally GI/Abdomen: PEG present, good bowel sounds, Extermity/Skin: right femoral TLC, left flores I/O iv line MSK: right lower leg amputated Neuro: no movement Psych: comatose, poa - Constitutional Vitals: Temp Pulse Resp BP Pulse Ox 98.3 F 73 24 108/65 99 12/31/18 08:00 12/31/18 08:30 12/31/18 08:30 12/31/18 08:30 12/31/18 08:30 General appearance: Absent: mild distress Results - Labs CBC & Chem 7: 12/30/18 08:54 12/31/18 08:45 Labs: Laboratory Last Values WBC 17.3 K/mm3 (4.5-11.0) H 12/30/18 08:54 RBC 2.61 M/mm3 (3.65-5.03) L 12/30/18 08:54 Hgb 7.0 gm/dl (11.8-15.2) L 12/30/18 08:54 Hct 22.6 % (35.5-45.6) L D 12/30/18 08:54 MCV 87 fl (84-94) 12/30/18 08:54 MCH 27 pg (28-32) L 12/30/18 08:54 MCHC 31 % (32-34) L 12/30/18 08:54 RDW 18.6 % (13.2-15.2) H 12/30/18 08:54 Plt Count 290 K/mm3 (140-440) 12/30/18 08:54 Lymph % (Auto) Hand Surgeon 12/28/18 07:20 Blair % (Auto) Hand Surgeon 12/28/18 07:20 Eos % (Auto) Hand Surgeon 12/28/18 07:20 Baso % (Auto) Hand Surgeon 12/28/18 07:20 Lymph # Hand Surgeon 12/28/18 07:20 Blair # Hand Surgeon 12/28/18 07:20 Eos # Hand Surgeon 12/28/18 07:20 Baso # Hand Surgeon 12/28/18 07:20 Add Manual Diff Complete 12/29/18 11:39 Total Counted 100 12/29/18 11:39 Seg Neutrophils % Hand Surgeon 12/28/18 07:20 Seg Neuts % (Manual) 62.0 % (40.0-70.0) 12/29/18 11:39 Band Neutrophils % 18.0 % 12/29/18 11:39 Lymphocytes % (Manual) 5.0 % (13.4-35.0) L 12/29/18 11:39 Reactive Lymphs % (Man) 0 % 12/29/18 11:39 Monocytes % (Manual) 3.0 % (0.0-7.3) 12/29/18 11:39 Eosinophils % (Manual) 3.0 % (0.0-4.3) 12/29/18 11:39 Basophils % (Manual) 0 % (0.0-1.8) 12/29/18 11:39 Metamyelocytes % 9.0 % 12/29/18 11:39 Myelocytes % 0 % 12/29/18 11:39 Promyelocytes % 0 % 12/29/18 11:39 Blast Cells % 0 % 12/29/18 11:39 Nucleated RBC % 1.0 % (0.0-0.9) H 12/29/18 11:39 Seg Neutrophils # Hand Surgeon 12/28/18 07:20 Seg Neutrophils # Man 6.7 K/mm3 (1.8-7.7) 12/29/18 11:39 Band Neutrophils # 1.9 K/mm3 12/29/18 11:39 Lymphocytes # (Manual) 0.5 K/mm3 (1.2-5.4) L 12/29/18 11:39 Abs React Lymphs (Man) 0.0 K/mm3 12/29/18 11:39 Monocytes # (Manual) 0.3 K/mm3 (0.0-0.8) 12/29/18 11:39 Eosinophils # (Manual) 0.3 K/mm3 (0.0-0.4) 12/29/18 11:39 Basophils # (Manual) 0.0 K/mm3 (0.0-0.1) 12/29/18 11:39 Metamyelocytes # 1.0 K/mm3 12/29/18 11:39 Myelocytes # 0.0 K/mm3 12/29/18 11:39 Promyelocytes # 0.0 K/mm3 12/29/18 11:39 Blast Cells # 0.0 K/mm3 12/29/18 11:39 WBC Morphology Not Reportable 12/29/18 11:39 Hypersegmented Neuts Not Reportable 12/29/18 11:39 Hyposegmented Neuts Not Reportable 12/29/18 11:39 Hypogranular Neuts Not Reportable 12/29/18 11:39 Smudge Cells Not Reportable 12/29/18 11:39 Toxic Granulation Not Reportable 12/29/18 11:39 Toxic Vacuolation Not Reportable 12/29/18 11:39 Dohle Bodies Not Reportable 12/29/18 11:39 Pelger-Huet Anomaly Not Reportable 12/29/18 11:39 Fritz Rods Not Reportable 12/29/18 11:39 Platelet Estimate Consistent w auto 12/29/18 11:39 Clumped Platelets Not Reportable 12/29/18 11:39 Plt Clumps, EDTA Not Reportable 12/29/18 11:39 Large Platelets Not Reportable 12/29/18 11:39 Giant Platelets Not Reportable 12/29/18 11:39 Platelet Satelliting Not Reportable 12/29/18 11:39 Plt Morphology Comment Not Reportable 12/29/18 11:39 RBC Morphology Not Reportable 12/29/18 11:39 Dimorphic RBCs Not Reportable 12/29/18 11:39 Polychromasia Rare 12/29/18 11:39 Hypochromasia Not Reportable 12/29/18 11:39 Poikilocytosis Not Reportable 12/29/18 11:39 Anisocytosis Not Reportable 12/29/18 11:39 Microcytosis Not Reportable 12/29/18 11:39 Macrocytosis Not Reportable 12/29/18 11:39 Spherocytes Not Reportable 12/29/18 11:39 Pappenheimer Bodies Not Reportable 12/29/18 11:39 Sickle Cells Not Reportable 12/29/18 11:39 Target Cells Not Reportable 12/29/18 11:39 Tear Drop Cells Rare 12/29/18 11:39 Ovalocytes Not Reportable 12/29/18 11:39 Helmet Cells Not Reportable 12/29/18 11:39 [place] Bodies Not Reportable 12/29/18 11:39 Mcdonald Rings Not Reportable 12/29/18 11:39 Holden Cells Not Reportable 12/29/18 11:39 Bite Cells Not Reportable 12/29/18 11:39 Crenated Cell Not Reportable 12/29/18 11:39 Elliptocytes Rare 12/29/18 11:39 Acanthocytes (Spur) Not Reportable 12/29/18 11:39 Rouleaux Not Reportable 12/29/18 11:39 Hemoglobin C Crystals Not Reportable 12/29/18 11:39 Schistocytes Not Reportable 12/29/18 11:39 Malaria parasites Not Reportable 12/29/18 11:39 Gurdeep Bodies Not Reportable 12/29/18 11:39 Hem Pathologist Commnt No 12/29/18 11:39 PT 17.1 Sec. (12.2-14.9) H 12/28/18 07:20 INR 1.31 (0.87-1.13) H 12/28/18 07:20 APTT 38.7 Sec. (24.2-36.6) H 12/29/18 11:39 POC ABG pH 7.191 (7.35-7.45) L 12/31/18 05:21 POC ABG pCO2 33.9 (35-45) L 12/31/18 05:21 POC ABG pO2 100 (80-105) 12/31/18 05:21 POC ABG HCO3 13.0 (22-26 mml/L) 12/31/18 05:21 POC ABG Total CO2 14 (23-27mmol/L) 12/31/18 05:21 POC ABG O2 Sat 96 12/31/18 05:21 POC ABG Base Excess -15 ((-2) - (+3)mmol/L) 12/31/18 05:21 VBG pH 7.149 (7.320-7.420) L* 12/28/18 07:20 FiO2 50 % 12/31/18 05:21 Sodium 170 mmol/L (137-145) H* D 12/31/18 08:45 Potassium 2.9 mmol/L (3.6-5.0) L* 12/31/18 08:45 Chloride 138.6 mmol/L (98-107) H 12/31/18 08:45 Carbon Dioxide 13 mmol/L (22-30) L 12/31/18 08:45 Anion Gap 21 mmol/L 12/31/18 08:45 BUN 13 mg/dL (9-20) 12/31/18 08:45 Creatinine 0.8 mg/dL (0.8-1.5) 12/31/18 08:45 Estimated GFR > 60 ml/min 12/31/18 08:45 BUN/Creatinine Ratio 16 % 12/31/18 08:45 Glucose 244 mg/dL (75-100) H 12/31/18 08:45 POC Glucose 289 (70-105) H 12/31/18 09:13 Lactic Acid 2.20 mmol/L (0.7-2.0) H* 12/29/18 23:05 Calcium 9.0 mg/dL (8.4-10.2) 12/31/18 08:45 Phosphorus 2.00 mg/dL (2.5-4.5) L 12/30/18 08:54 Magnesium 1.90 mg/dL (1.7-2.3) 12/30/18 08:54 Total Bilirubin 0.30 mg/dL (0.1-1.2) 12/31/18 08:45 AST 50 units/L (5-40) H 12/31/18 08:45 ALT 93 units/L (7-56) H 12/31/18 08:45 Alkaline Phosphatase 136 units/L (35-129) H 12/31/18 08:45 Total Creatine Kinase 213 units/L (55-170) H 12/28/18 07:20 CK-MB (CK-2) 1.9 ng/mL (0.0-4.0) 12/28/18 07:20 CK-MB (CK-2) Rel Index 0.8 (0-4) 12/28/18 07:20 Troponin T 0.143 ng/mL (0.00-0.029) H* 12/28/18 22:20 Total Protein 6.6 g/dL (6.3-8.2) 12/31/18 08:45 Albumin 1.9 g/dL (3.9-5) L 12/31/18 08:45 Albumin/Globulin Ratio 0.4 % 12/31/18 08:45 Triglycerides 106 mg/dL (2-149) 12/28/18 07:20 Cholesterol 82 mg/dL (50-199) 12/28/18 07:20 LDL Cholesterol Direct 49 mg/dL (50-130) L 12/28/18 07:20 HDL Cholesterol 27 mg/dL (40-59) L 12/28/18 07:20 Cholesterol/HDL Ratio 3.03 % 12/28/18 07:20 TSH 0.307 mlU/mL (0.270-4.200) 12/28/18 16:36 Free T4 0.96 ng/dL (0.76-1.46) 12/28/18 16:36 Urine Color Yellow (Yellow) 12/28/18 08:02 Urine Turbidity Slightly-cloudy (Clear) 12/28/18 08:02 Urine pH 8.0 (5.0-7.0) H 12/28/18 08:02 Ur Specific [place] 1.018 (1.003-1.030) 12/28/18 08:02 Urine Protein 100 mg/dl mg/dL (Negative) 12/28/18 08:02 Urine Glucose (UA) >=500 mg/dL (Negative) 12/28/18 08:02 Urine Ketones Neg mg/dL (Negative) 12/28/18 08:02 Urine Blood Neg (Negative) 12/28/18 08:02 Urine Nitrite Neg (Negative) 12/28/18 08:02 Urine Bilirubin Neg (Negative) 12/28/18 08:02 Urine Urobilinogen < 2.0 mg/dL (<2.0) 12/28/18 08:02 Ur Leukocyte Esterase Lg (Negative) 12/28/18 08:02 Urine WBC (Auto) 59.0 /HPF (0.0-6.0) H 12/28/18 08:02 Urine RBC (Auto) 6.0 /HPF (0.0-6.0) 12/28/18 08:02 Hyaline Casts 1 /LPF 12/28/18 08:02 Urine Yeast (Budding) 2+ /HPF 12/28/18 08:02 Blood Type B POSITIVE 12/28/18 07:20 Antibody Screen Negative 12/28/18 07:20 Crossmatch See Detail 12/28/18 07:20 Active Medications - Current Medications Current Medications: Generic Name Dose Route Start Last Admin Trade Name Freq PRN Reason Stop Dose Admin Lipase/Protease/Amylase 1 each 12/30/18 13:52 Pancreaze 10,500 Unit FEEDTUBE PRN PRN For Clogged Feeding Tube Dextrose 50 ml 12/29/18 15:37 D50w (25gm) Syringe IV PRN PRN Hypoglycemia Hydrophilic Ointment 1 applic 12/28/18 07:23 Vaseline Lip Therapy TP Q2HR PRN Dry Lips Norepinephrine 4 mg in 250 mls @ 7.5 mls/hr 12/28/18 08:00 12/31/18 08:30 Levophed Drip 4 Mg/Ns 250 Ml IV 12/31/18 10:00 16 mcg/min TITR PATRICIO 60 mls/hr Titration Protocol 2 MCG/MIN Piperacillin Sod/Tazobactam Sod 4.5 gm in 100 mls @ 200 mls/hr 12/29/18 12:00 12/31/18 03:39 Zosyn/Ns 4.5gm/100ml IV 200 mls/hr Q8H APTRICIO Administration Protocol Phenylephrine HCl 100 mg/ 100 mls @ 3 mls/hr 12/30/18 18:43 Sodium Chloride IV 01/01/19 04:02 TITR STA Protocol 50 MCG/MIN Vasopressin 20 unit/ Sodium 101 mls @ 9.09 mls/hr 12/31/18 08:00 12/31/18 08:00 Chloride IV 0.03 units/min TITR PATRICIO 9.09 mls/hr Administration Protocol 0.03 UNITS/MIN Norepinephrine 8 mg/ Sodium 250 mls @ 3.75 mls/hr 12/31/18 08:00 Chloride IV TITR PATRICIO Protocol 2 MCG/MIN Potassium Chloride 20 meq in 100 mls @ 100 mls/hr 12/31/18 10:00 Kcl 20meq/100ml IV 12/31/18 13:59 Q1H PATRICIO Potassium Chloride 20 meq in 100 mls @ 100 mls/hr 12/31/18 10:00 Kcl 20meq/100ml IV 12/31/18 11:59 Q1H PATRICIO Potassium Chloride 10 meq in 100 mls @ 100 mls/hr 12/31/18 10:00 Kcl 10meq/100ml IV 12/31/18 11:59 Q1H PATRICIO Dextrose 1,000 mls @ 100 mls/hr 12/31/18 10:00 D5w IV DIRECT PATRICIO Insulin Glargine 10 units 12/30/18 08:00 12/31/18 08:46 Lantus SUB-Q 10 units QAMDIAB ON LICENSE OF [facility] Administration Insulin Human Lispro 0 unit 12/29/18 18:00 12/31/18 06:10 Humalog SUB-Q 4 unit Q6HR ON LICENSE OF [facility] Administration Protocol Multi-Ingred Cream/Lotion/Oil/Oint 1 applic 12/28/18 07:23 Artificial Tears Ophth Oint OU Q4HR PRN Dry Eye(s) Naloxone HCl 0.1 mg 12/28/18 11:28 Narcan 0.4 Mg/1 Ml IV Q2MIN PRN Res Rate </= 8 or 02 SAT < 92% Ondansetron HCl 4 mg 12/28/18 11:28 Zofran IV Q8H PRN Nausea And Vomiting Simple Syrup 15 ml 12/30/18 13:52 Simple Syrup FEEDTUBE PRN PRN Hypoglycemia Simple Syrup 30 ml 12/30/18 13:52 Simple Syrup FEEDTUBE PRN PRN Hypoglycemia Sodium Bicarbonate 325 mg 12/30/18 13:52 Sodium Bicarbonate FEEDTUBE PRN PRN For Clogged Feeding Tube Sodium Chloride 10 ml 12/28/18 22:00 12/31/18 07:28 Sodium Chloride Flush Syringe 10 Ml IV Not Given BID PATRICIO Sodium Chloride 10 ml 12/28/18 11:28 Sodium Chloride Flush Syringe 10 Ml IV PRN PRN LINE FLUSH Nutrition/Malnutrition Assess - Dietary Evaluation Nutrition/Malnutrition Findings: Nutrition Notes Start: 12/28/18 09:49 Freq: Status: Active Protocol: Document 12/30/18 13:47 RM (Rec: 12/30/18 13:52 RM [id number]) Nutrition Notes Initial or Follow up Reassessment Current Diagnosis COPD,Diabetes,Hypertension, Hyperlipidemia Other Pertinent Diagnosis s/p cardiac arrest, debility, stage 4 sacral ulcer,R buttocks wound,(R) AKA Current Diet NPO Labs/Tests Na 160 Pertinent Medications Reviewed Height 5 ft 7 in Weight 56.699 kg [place] Body Weight (kg) 67.27 BMI 19.5 Subjective/Other Information Consutled for TF recommendation. Burn Absent Trauma Absent #1 Nutrition Diagnosis Inadequate oral intake Diagnosis Progress(for reassessment Continues documentation) Is patient on ventilator? Yes Is Patient Ambulatory and/or Out of Bed No REE-([place]-confined to bed) 1660.956 Kcal/Kg value to use for calculation 35 Approximate Energy Requirements Using 1984 kcal/Kg Calculation Used for Recommendations Kcal/kg Additional Notes Pro needs 1.2-2g/k-113g/ day Fluid needs 1ml/kcal Nutrition Intervention Nutrition Support: Vital 1.2 at 60 ml/hr. Water flush of 150 mls q 4 hrs until hypernatremia resolves or per MD. Water flushes of 100 mls q 4 hrs after hypernatremia resolves. Kcal 1,728 Protein (gm) 108 Fluid (mL) 1,168 Goal #1 TF tolerance Goal #2 Meet at least 80% of calorie and protein needs via TF Follow-Up By: 01/01/19 Additional Comments Follow for new TF
[2018-12-31] MEDS ORDERED: KCL 20MEQ/100ML 20 MEQ/100 ML BAG IV SCH (10:00)
[2018-12-31] MEDS ORDERED: D5W 1,000 ML IV SCH (10:00)
[2018-12-31] MEDS ORDERED: KCL 10MEQ/100ML 10 MEQ/100 ML BAG IV SCH (10:00)
[2018-12-31] MEDS ORDERED: SODIUM BICARBONATE IV ONE ×2 (10:00→13:00)
[2018-12-31 10:08] LABS: Hematocrit 26.8 % (35.5-45.6); Hemoglobin 7.8 gm/dl (11.8-15.2); Mean Corpuscular HGB Conc 29 % (32-34); Mean Corpuscular Volume 90 fl (84-94); Platelet Count 256 K/mm3 (140-440); Red Blood Count 2.98 M/mm3 (3.65-5.03); Red Cell Distribution Width 20.4 % (13.2-15.2)
[2018-12-31] MEDS: KCL 20MEQ/100ML 20 MEQ/100 ML BAG IV SCH ×4 (10:40→13:58)
[2018-12-31] MEDS ORDERED: CATHFLO IV ONE (11:00)
[2018-12-31] MEDS: LEVOPHED 8 MG in NACL 0.9% 250ML 242 ML IV SCH ×2 (11:11→21:13)
--- NOTE | 2018-12-31 11:54 | Progress Note ---
Assessment and Plan cont supportive measures. overall poor prognosis. pt with ? anoxic brain injury - await neurology recs. will follow on as needed basis. The patient has been seen in conjunction with Dr. Chung who agrees with the assessment and plan of care. - Patient Problems (1) Cardiopulmonary arrest Current Visit: Yes Status: Acute (2) Respiratory failure Current Visit: Yes Status: Acute (3) Anoxic brain injury Current Visit: Yes Status: Suspected (4) Anemia Current Visit: Yes Status: Chronic (5) History of seizures Current Visit: Yes Status: Chronic (6) Septic shock Current Visit: Yes Status: Acute (7) DKA (diabetic ketoacidoses) Current Visit: Yes Status: Acute (8) Sacral decubitus ulcer Current Visit: Yes Status: Chronic (9) Osteomyelitis Current Visit: Yes Status: Chronic Subjective Date of service: 12/31/18 Principal diagnosis: cardiac arrest Interval history: pt remains intubated, nonresponsive, not on sedation, requiring multiple vasopressors. no family at bedside. Objective Last Vital Signs Temp 98.3 F 12/31/18 08:00 Pulse 71 12/31/18 11:15 Resp 24 12/31/18 11:15 BP 117/74 12/31/18 11:15 Pulse Ox 100 12/31/18 11:15 - Physical Examination General: Other (intubated, unresponsive) Cardiac: Positive: Reg Rate and Rhythm, S1/S2 Lungs: Positive: Decreased Breath Sounds, Ventilated Respirations Neuro: Positive: Other (unresponsive) Abdomen: Negative: Tender Skin: Negative: Rash, Wound Extremities: Absent: edema - Labs and Meds Cardiac Enzymes 12/31/18 12/31/18 12/31/18 Range/Units 05:45 06:40 08:45 AST TNR TNR 50 H CBC 12/31/18 Range/Units 09:43 WBC 18.9 H (4.5-11.0) K/mm3 RBC 2.98 L (3.65-5.03) M/mm3 Hgb 7.8 L (11.8-15.2) gm/dl Hct 26.8 L (35.5-45.6) % Plt Count 256 (140-440) K/mm3 Comprehensive Metabolic Panel 12/31/18 12/31/18 12/31/18 Range/Units 05:45 06:40 08:45 Sodium TNR TNR 170 H* D Potassium TNR TNR 2.9 L* Chloride TNR TNR 138.6 H Carbon Dioxide TNR TNR 13 L BUN TNR TNR 13 Creatinine TNR TNR 0.8 Glucose TNR TNR 244 H Calcium TNR TNR 9.0 AST TNR TNR 50 H ALT TNR TNR 93 H Alkaline Phosphatase TNR TNR 136 H Total Protein TNR TNR 6.6 Albumin TNR TNR 1.9 L
[2018-12-31] MEDS ORDERED: CATHFLO IV SCH (14:59)
--- NOTE | 2018-12-31 17:01 | Consultation ---
History of Present Illness - Reason for Consult Consult date: 12/31/18 hypernatremia, hypokalemia - History of Present Illness Mr. Shabazz is a 53-year-old male with past medical history of significant debility, G-tube placement, COPD with oxygen prn, sacral ulcer w/ osteomyelitis who presented to [facility] from [facility] w/ hyperglycemia and SOB. Upon EMS arrival to SNF, patient's glucose was in the 300s. En route, patient became bradycardic and subsequently pulseless upon arrival to ED. He is now intubated. Per critical care note, patient is unresponsvie, not over breathing the ventilator, no cough or gag reflex. Neprology consultation requested by the primary team due Na 170 and polyuria. Per RN, patient's urine volume has been appx 3 liters over the past 10 hours. Past History Past Medical History: COPD (per chart), diabetes, hypertension, seizures Past Surgical History: Other Social history: other Family history: no significant family history Medications and Allergies Allergies Allergy/AdvReac Type Severity Reaction Status Date / Time No Known Drug Allergies Allergy Unknown Verified 06/11/18 12:07 Home Medications Medication Instructions Recorded Confirmed Last Taken Type Sodium Bicarbonate 650 mg FEEDTUBE QID 06/11/18 12/28/18 Unknown History Acetaminophen [Acetaminophen ORAL 20.3 ml FEEDTUBE Q6H PRN 08/21/18 12/28/18 Unknown History LIQ] Ascorbic Acid [Vitamin C] 5 ml FEEDTUBE Q12H 08/21/18 12/28/18 Unknown History Insulin Detemir [Levemir VIAL] 25 units SUB-Q QHS 08/21/18 12/28/18 Unknown History Metoprolol [Lopressor TAB] 100 mg FEEDTUBE Q12H 08/21/18 12/28/18 Unknown History Multivit-Minerals/Ferrous Gluc 5 ml FEEDTUBE DAILY@0600 08/21/18 12/28/18 Unknown History [Centrum Multivit-Mineral Liq] Potassium Chloride 15 ml FEEDTUBE DAILY@0600 08/21/18 12/28/18 Unknown History Zinc Sulfate 220 mg FEEDTUBE Q12H 08/21/18 12/28/18 Unknown History hydrALAZINE [Apresoline TAB] 10 mg FEEDTUBE Q8H 08/21/18 12/28/18 Unknown Hist ory levETIRAcetam [Keppra ORAL LIQ] 500 mg FEEDTUBE Q12H 08/21/18 12/28/18 Unknown History Acetaminophen [Acetaminophen ORAL 20.3 ml FEEDTUBE Q6H PRN 12/28/18 12/28/18 Unknown History LIQ] Calcium Acetate 10 ml FEEDTUBE TID 12/28/18 12/28/18 Unknown History Docusate Sodium 15 ml FEEDTUBE DAILY 12/28/18 12/28/18 Unknown History Famotidine [Pepcid] 20 mg PO Q12H 12/28/18 12/28/18 Unknown History Ferrous Sulfate [Ferrous Sulfate 5 ml FEEDTUBE BID 12/28/18 12/28/18 Unknown History 220 MG/5 ML] HYDROcodone/APAP 5-325 [[place] 1 each FEEDTUBE BID 12/28/18 12/28/18 Unknown His tory 5/325] Lipase/Protease/Amylase [[place] 1 each FEEDTUBE Q8H PRN 12/28/18 12/28/18 Unkn own History 12,000 Units] Lispro Insulin [Humalog] See Protocol SUB-Q ACHS 12/28/18 12/28/18 Unknown History Sennosides [Senna Lax] 8.6 mg FEEDTUBE DAILY 12/28/18 12/28/18 Unknown History traMADol [Ultram] 50 mg FEEDTUBE BID PRN 12/28/18 12/28/18 Unknown History Active Meds: Active Medications Alteplase, Recombinant (Cathflo) 2 mg IV ONCE PATRICIO Stop: 12/31/18 23:00 Last Admin: 12/31/18 15:33 Dose: 2 mg Documented by: Lipase/Protease/Amylase ([place] 10,500 Unit) 1 each FEEDTUBE PRN PRN PRN Reason: For Clogged Feeding Tube Dextrose (D50w (25gm) Syringe) 50 ml IV PRN PRN PRN Reason: Hypoglycemia Hydrophilic Ointment (Vaseline Lip Therapy) 1 applic TP Q2HR PRN PRN Reason: Dry Lips Piperacillin Sod/Tazobactam Sod (Zosyn/Ns 4.5gm/100ml) 4.5 gm in 100 mls @ 200 mls/hr IV Q8H PATRICIO; Protocol Last Admin: 12/31/18 11:30 Dose: 200 mls/hr Documented by: Phenylephrine HCl 100 mg/ (Sodium Chloride) 100 mls @ 3 mls/hr IV TITR STA; Protocol Stop: 01/01/19 04:02 Vasopressin 20 unit/ Sodium (Chloride) 101 mls @ 9.09 mls/hr IV TITR PATRICIO; Pr otocol Last Admin: 12/31/18 15:10 Dose: 0.03 units/min, 9.09 mls/hr Documented by: Norepinephrine 8 mg/ Sodium (Chloride) 250 mls @ 3.75 mls/hr IV TITR PATRICIO; Protocol Last Titration: 12/31/18 15:30 Dose: 10 mcg/min, 18.75 mls/hr Documented by: Dextrose (D5w) 1,000 mls @ 100 mls/hr IV DIRECT PATRICIO Last Admin: 12/31/18 09:38 Dose: 100 mls/hr Documented by: Insulin Glargine (Lantus) 10 units SUB-Q QAMDIAB PTARICIO Last Admin: 12/31/18 08:46 Dose: 10 units Documented by: Insulin Glargine (Lantus) 5 units SUB-Q ONCE ONE Stop: 12/31/18 17:24 Insulin Human Lispro (Humalog) 0 unit SUB-Q Q6HR PATRICIO; Protocol Last Admin: 12/31/18 11:30 Dose: 6 unit Documented by: Multi-Ingred Cream/Lotion/Oil/Oint (Artificial Tears Ophth Oint) 1 applic OU Q4HR PRN PRN Reason: Dry Eye(s) Naloxone HCl (Narcan 0.4 Mg/1 Ml) 0.1 mg IV Q2MIN PRN PRN Reason: Res Rate </= 8 or 02 SAT < 92% Ondansetron HCl (Zofran) 4 mg IV Q8H PRN PRN Reason: Nausea And Vomiting Simple Syrup (Simple Syrup) 15 ml FEEDTUBE PRN PRN PRN Reason: Hypoglycemia Simple Syrup (Simple Syrup) 30 ml FEEDTUBE PRN PRN PRN Reason: Hypoglycemia Sodium Bicarbonate (Sodium Bicarbonate) 325 mg FEEDTUBE PRN PRN PRN Reason: For Clogged Feeding Tube Sodium Chloride (Sodium Chloride Flush Syringe 10 Ml) 10 ml IV BID PATRICIO Last Admin: 12/31/18 10:03 Dose: 10 ml Documented by: Sodium Chloride (Sodium Chloride Flush Syringe 10 Ml) 10 ml IV PRN PRN PRN Reason: LINE FLUSH Review of Systems ROS unobtainable: due to endotracheal tube Exam - Vital Signs Vital signs: Vital Signs Pulse BP 44 L 55/28 12/28/18 07:21 12/28/18 07:21 - General Appearance General appearance: intubated EENT: ATNC, other (ETT in place) Respiratory: Other (coarse BS) Heart: regular, S1S2 Gastrointestinal: Present: normal, hypoactive bowel sounds. Absent: distended Integumentary: warm and dry Musculoskeletal: Present: other (right AKA) Results - Lab Results 12/31/18 09:43 12/31/18 08:45 Most recent lab results Calcium 9.0 mg/dL (8.4-10.2) 12/31/18 08:45 Phosphorus 2.00 mg/dL (2.5-4.5) L 12/30/18 08:54 Magnesium 1.90 mg/dL (1.7-2.3) 12/30/18 08:54 Assessment and Plan Assessment * Hypernatremia w/ polyuria r/o central DI * Sepsis * Cardiac arrest * Acute respiratory failure on mechanical ventilation * Hypokalemia * Anemia * Hypercalcemia Plan: * Agree with D5W - increase to 150ml/hour; continue free H2O via PEG 300ml [id number] * STAT SOsm, UOsm and [place] ordered - to r/o DI in setting of hyperNa w/ polyuria * Will start ddAVP pending above results * Vent management per CCM/pulm * Pressors prn to maintain MAP>65 * Replete lytes prn * Broad spectrum abx per primary team * Cardiology recommendations noted * Transfuse pRBC prn * Corrected Ca 10.7 (improved) * Sister at bedside - updated
[2018-12-31] MEDS ORDERED: LANTUS SUB-Q ONE (17:23)
[2018-12-31 17:43] LABS: BUN/Creatinine Ratio 17; Blood Urea Nitrogen 12 mg/dL (9-20); Calcium 9.2 mg/dL (8.4-10.2); Hemolysis Index 0
--- NOTE | 2018-12-31 17:55 | Progress Note ---
Assessment and Plan Imp: 1. Pneumonia, ? aspiration 2. Sepsis 3. Acute respiratory failure, hypoxia 4. S/p CP arrest 5. Anoxic enceph; r/o brain 6. Hypernatremia; suspect DI Rec: 1. Zosyn; f/u cultures 2. Not weanable from ventilator due to mentation 3. Await neurology eval/recs 4. Free water, increase D5W, DI work-up per renal 5. Labs in AM; repeat ABG in AM re: metabolic acidosis 6. TFs; start insulin drip 7. DVT and GI PPx 8. Poor prognosis D/w sister at bedside; all questions answered Subjective Date of service: 12/31/18 Principal diagnosis: cardiac arrest Interval history: No events. Unresponsive on ACVC. No gag, cough, or corneal reflexes. Cannot give hx. On Levophed and Vasopressin via PICC. Active Medications Alteplase, Recombinant (Cathflo) 2 mg IV ONCE PATRICIO Stop: 12/31/18 23:00 Last Admin: 12/31/18 15:33 Dose: 2 mg Documented by: Lipase/Protease/Amylase (Pancreaze 10,500 Unit) 1 each FEEDTUBE PRN PRN PRN Reason: For Clogged Feeding Tube Dextrose (D50w (25gm) Syringe) 50 ml IV PRN PRN PRN Reason: Hypoglycemia Hydrophilic Ointment (Vaseline Lip Therapy) 1 applic TP Q2HR PRN PRN Reason: Dry Lips Piperacillin Sod/Tazobactam Sod (Zosyn/Ns 4.5gm/100ml) 4.5 gm in 100 mls @ 200 mls/hr IV Q8H PATRICIO; Protocol Last Admin: 12/31/18 11:30 Dose: 200 mls/hr Documented by: Phenylephrine HCl 100 mg/ (Sodium Chloride) 100 mls @ 3 mls/hr IV TITR STA; Protocol Stop: 01/01/19 04:02 Vasopressin 20 unit/ Sodium (Chloride) 101 mls @ 9.09 mls/hr IV TITR PATRICIO; Protocol Last Admin: 12/31/18 15:10 Dose: 0.03 units/min, 9.09 mls/hr Documented by: Norepinephrine 8 mg/ Sodium (Chloride) 250 mls @ 3.75 mls/hr IV TITR PATRICIO; Protocol Last Titration: 12/31/18 15:30 Dose: 10 mcg/min, 18.75 mls/hr Documented by: Dextrose (D5w) 1,000 mls @ 100 mls/hr IV DIRECT [facility] Last Admin: 12/31/18 09:38 Dose: 100 mls/hr Documented by: Insulin Glargine (Lantus) 10 units SUB-Q QAMDIAB [facility] Last Admin: 12/31/18 08:46 Dose: 10 units Documented by: Insulin Human Lispro (Humalog) 0 unit SUB-Q Q6HR [facility]; Protocol Last Admin: 12/31/18 11:30 Dose: 6 unit Documented by: Multi-Ingred Cream/Lotion/Oil/Oint (Artificial Tears Ophth Oint) 1 applic OU Q4HR PRN PRN Reason: Dry Eye(s) Naloxone HCl (Narcan 0.4 Mg/1 Ml) 0.1 mg IV Q2MIN PRN PRN Reason: Res Rate </= 8 or 02 SAT < 92% Ondansetron HCl (Zofran) 4 mg IV Q8H PRN PRN Reason: Nausea And Vomiting Simple Syrup (Simple Syrup) 15 ml FEEDTUBE PRN PRN PRN Reason: Hypoglycemia Simple Syrup (Simple Syrup) 30 ml FEEDTUBE PRN PRN PRN Reason: Hypoglycemia Sodium Bicarbonate (Sodium Bicarbonate) 325 mg FEEDTUBE PRN PRN PRN Reason: For Clogged Feeding Tube Sodium Chloride (Sodium Chloride Flush Syringe 10 Ml) 10 ml IV BID [facility] Last Admin: 12/31/18 10:03 Dose: 10 ml Documented by: Sodium Chloride (Sodium Chloride Flush Syringe 10 Ml) 10 ml IV PRN PRN PRN Reason: LINE FLUSH Objective Vital Signs - 12hr 12/31/18 12/31/18 12/31/18 06:00 06:15 06:30 Temperature Pulse Rate 76 76 78 Pulse Rate [ From Monitor] Respiratory 24 24 24 Rate Blood Pressure 99/58 104/63 102/62 O2 Sat by Pulse 99 99 Oximetry 12/31/18 12/31/18 12/31/18 06:45 07:00 07:02 Temperature Pulse Rate 74 75 74 Pulse Rate [ From Monitor] Respiratory 24 22 Rate Blood Pressure 110/62 98/57 98/57 O2 Sat by Pulse 99 100 99 Oximetry 12/31/18 12/31/18 12/31/18 07:15 07:30 07:45 Temperature Pulse Rate 74 73 75 Pulse Rate [ From Monitor] Respiratory 24 24 24 Rate Blood Pressure 96/58 93/66 110/68 O2 Sat by Pulse 97 98 98 Oximetry 12/31/18 12/31/18 12/31/18 08:00 08:15 08:30 Temperature 98.3 F Pulse Rate 75 74 73 Pulse Rate [ 69 From Monitor] Respiratory 24 24 24 Rate Blood Pressure 117/69 117/69 108/65 O2 Sat by Pulse 99 98 99 Oximetry 12/31/18 12/31/18 12/31/18 08:45 09:00 09:15 Temperature Pulse Rate 73 71 70 Pulse Rate [ From Monitor] Respiratory 24 24 24 Rate Blood Pressure 109/66 102/61 104/61 O2 Sat by Pulse 99 100 99 Oximetry 12/31/18 12/31/18 12/31/18 09:30 09:45 10:00 Temperature Pulse Rate 70 70 69 Pulse Rate [ From Monitor] Respiratory 24 24 24 Rate Blood Pressure 101/62 101/62 102/61 O2 Sat by Pulse 100 100 100 Oximetry 12/31/18 12/31/18 12/31/18 10:16 10:30 10:45 Temperature Pulse Rate 74 74 74 Pulse Rate [ From Monitor] Respiratory 24 24 24 Rate Blood Pressure 119/59 127/69 122/69 O2 Sat by Pulse 99 99 99 Oximetry 12/31/18 12/31/18 12/31/18 11:00 11:03 11:15 Temperature Pulse Rate 73 73 71 Pulse Rate [ From Monitor] Respiratory 24 24 Rate Blood Pressure 114/64 114/64 117/74 O2 Sat by Pulse 99 100 100 Oximetry 12/31/18 12/31/18 12/31/18 11:30 11:45 12:00 Temperature 93.0 F L Pulse Rate 72 72 72 Pulse Rate [ 72 From Monitor] Respiratory 24 24 24 Rate Blood Pressure 119/74 124/71 124/71 O2 Sat by Pulse 100 100 100 Oximetry 12/31/18 12/31/18 12/31/18 12:16 12:30 12:45 Temperature Pulse Rate 74 72 71 Pulse Rate [ From Monitor] Respiratory 20 24 24 Rate Blood Pressure 94/55 99/63 101/63 O2 Sat by Pulse 99 99 100 Oximetry 12/31/18 12/31/18 12/31/18 13:00 13:15 13:30 Temperature Pulse Rate 70 70 69 Pulse Rate [ From Monitor] Respiratory 24 24 24 Rate Blood Pressure 103/65 104/66 106/67 O2 Sat by Pulse 100 100 100 Oximetry 12/31/18 12/31/18 12/31/18 13:45 14:00 14:15 Temperature Pulse Rate 69 69 68 Pulse Rate [ From Monitor] Respiratory 24 24 24 Rate Blood Pressure 108/67 112/68 108/68 O2 Sat by Pulse 100 100 100 Oximetry 12/31/18 12/31/18 12/31/18 14:30 14:45 15:00 Temperature Pulse Rate 69 69 68 Pulse Rate [ From Monitor] Respiratory 24 24 24 Rate Blood Pressure 110/68 109/67 113/73 O2 Sat by Pulse 100 100 100 Oximetry 12/31/18 12/31/18 12/31/18 15:16 15:30 15:45 Temperature Pulse Rate 68 69 67 Pulse Rate [ From Monitor] Respiratory 24 24 24 Rate Blood Pressure 128/67 116/73 105/67 O2 Sat by Pulse 100 100 100 Oximetry 12/31/18 12/31/18 12/31/18 16:00 16:15 16:30 Temperature 93.0 F L Pulse Rate 66 67 66 Pulse Rate [ 67 From Monitor] Respiratory 24 24 24 Rate Blood Pressure 105/67 111/72 108/71 O2 Sat by Pulse 100 100 100 Oximetry 12/31/18 12/31/18 12/31/18 16:45 17:00 17:08 Temperature Pulse Rate 66 66 66 Pulse Rate [ From Monitor] Respiratory 24 24 Rate Blood Pressure 112/73 110/70 110/70 O2 Sat by Pulse 100 100 100 Oximetry 12/31/18 12/31/18 12/31/18 17:16 17:30 17:45 Temperature Pulse Rate 65 65 67 Pulse Rate [ From Monitor] Respiratory 24 24 24 Rate Blood Pressure 92/56 123/69 123/74 O2 Sat by Pulse 100 100 100 Oximetry Constitutional: comatose Eyes: non-icteric ENT: other (orally intubated) Effort: normal Ascultation: Bilateral: other (coarse BS bilaterally) Cardiovascular: regular rate and rhythm (no mrg) Gastrointestinal: normoactive bowel sounds, soft, non-tender, non-distended Integumentary: other (stage IV sacral decub per staff development educator) Neurologic: other (unresponsive, flaccid extremities, no reflexes per above) Psychiatric: other (unable to assess) CBC and BMP: 12/31/18 09:43 12/31/18 17:21 ABG, PT/INR, D-dimer: ABG POC ABG pH 7.191 (7.35-7.45) L 12/31/18 05:21 POC ABG pCO2 33.9 (35-45) L 12/31/18 05:21 POC ABG pO2 100 (80-105) 12/31/18 05:21 POC ABG HCO3 13.0 (22-26 mml/L) 12/31/18 05:21 POC ABG Total CO2 14 (23-27mmol/L) 12/31/18 05:21 POC ABG O2 Sat 96 12/31/18 05:21 PT/INR, D-dimer PT 17.1 Sec. (12.2-14.9) H 12/28/18 07:20 INR 1.31 (0.87-1.13) H 12/28/18 07:20 Abnormal lab findings: Abnormal Labs 12/28/18 12/28/18 12/28/18 06:56 07:20 07:20 WBC 19.1 H RBC 2.42 L Hgb 6.2 L Hct 23.5 L MCV 97 H MCH 26 L MCHC 27 L RDW 20.5 H Plt Count 507 H Seg Neuts % (Manual) 79.0 H Lymphocytes % (Manual) Nucleated RBC % 1.0 H Seg Neutrophils # Man 15.1 H Lymphocytes # (Manual) PT INR APTT POC ABG pH POC ABG pCO2 POC ABG pO2 VBG pH Sodium 160 H Potassium 5.6 H Chloride 108.5 H Carbon Dioxide 21 L BUN 67 H Creatinine Glucose 457 H POC Glucose 357 H Lactic Acid Calcium > 13.0 H* Phosphorus Magnesium AST 325 H ALT 190 H Alkaline Phosphatase 132 H Total Creatine Kinase 213 H Troponin T 0.568 H* Albumin 2.8 L LDL Cholesterol Direct 49 L HDL Cholesterol 27 L Urine pH Urine WBC (Auto) Crossmatch 12/28/18 12/28/18 12/28/18 07:20 07:20 07:20 WBC RBC Hgb Hct MCV MCH MCHC RDW Plt Count Seg Neuts % (Manual) Lymphocytes % (Manual) Nucleated RBC % Seg Neutrophils # Man Lymphocytes # (Manual) PT 17.1 H INR 1.31 H APTT POC ABG pH POC ABG pCO2 POC ABG pO2 VBG pH 7.149 L* Sodium Potassium Chloride Carbon Dioxide BUN Creatinine Glucose POC Glucose Lactic Acid 15.40 H* Calcium Phosphorus Magnesium AST ALT Alkaline Phosphatase Total Creatine Kinase Troponin T Albumin LDL Cholesterol Direct HDL Cholesterol Urine pH Urine WBC (Auto) Crossmatch 12/28/18 12/28/18 12/28/18 07:20 07:40 08:02 WBC RBC Hgb Hct MCV MCH MCHC RDW Plt Count Seg Neuts % (Manual) Lymphocytes % (Manual) Nucleated RBC % Seg Neutrophils # Man Lymphocytes # (Manual) PT INR APTT POC ABG pH POC ABG pCO2 POC ABG pO2 VBG pH Sodium Potassium Chloride Carbon Dioxide BUN Creatinine Glucose POC Glucose Lactic Acid Calcium Phosphorus 9.80 H Magnesium 3.50 H AST ALT Alkaline Phosphatase Total Creatine Kinase Troponin T Albumin LDL Cholesterol Direct HDL Cholesterol Urine pH 8.0 H Urine WBC (Auto) 59.0 H Crossmatch See Detail 12/28/18 12/28/18 12/28/18 08:03 10:02 10:10 WBC RBC Hgb Hct MCV MCH MCHC RDW Plt Count Seg Neuts % (Manual) Lymphocytes % (Manual) Nucleated RBC % Seg Neutrophils # Man Lymphocytes # (Manual) PT INR APTT POC ABG pH 7.170 L POC ABG pCO2 60.4 H 45.3 H POC ABG pO2 135 H VBG pH Sodium Potassium Chloride Carbon Dioxide BUN Creatinine Glucose POC Glucose 288 H Lactic Acid Calcium Phosphorus Magnesium AST ALT Alkaline Phosphatase Total Creatine Kinase Troponin T Albumin LDL Cholesterol Direct HDL Cholesterol Urine pH Urine WBC (Auto) Crossmatch 12/28/18 12/28/18 12/28/18 11:14 12:34 14:05 WBC RBC Hgb Hct MCV MCH MCHC RDW Plt Count Seg Neuts % (Manual) Lymphocytes % (Manual) Nucleated RBC % Seg Neutrophils # Man Lymphocytes # (Manual) PT INR APTT POC ABG pH POC ABG pCO2 POC ABG pO2 VBG pH Sodium Potassium Chloride Carbon Dioxide BUN Creatinine Glucose POC Glucose 268 H 255 H 285 H Lactic Acid Calcium Phosphorus Magnesium AST ALT Alkaline Phosphatase Total Creatine Kinase Troponin T Albumin LDL Cholesterol Direct HDL Cholesterol Urine pH Urine WBC (Auto) Crossmatch 12/28/18 12/28/18 12/28/18 15:13 16:36 16:45 WBC RBC Hgb Hct MCV MCH MCHC RDW Plt Count Seg Neuts % (Manual) Lymphocytes % (Manual) Nucleated RBC % Seg Neutrophils # Man Lymphocytes # (Manual) PT INR APTT POC ABG pH POC ABG pCO2 POC ABG pO2 VBG pH Sodium 159 H Potassium 3.2 L D Chloride 115.2 H Carbon Dioxide 31 H D BUN 51 H Creatinine 0.7 L Glucose 159 H POC Glucose 214 H 168 H Lactic Acid Calcium 10.3 H D Phosphorus Magnesium AST ALT Alkaline Phosphatase Total Creatine Kinase Troponin T Albumin LDL Cholesterol Direct HDL Cholesterol Urine pH Urine WBC (Auto) Crossmatch 12/28/18 12/28/18 12/28/18 19:09 19:09 21:45 WBC RBC Hgb Hct MCV MCH MCHC RDW Plt Count Seg Neuts % (Manual) Lymphocytes % (Manual) Nucleated RBC % Seg Neutrophils # Man Lymphocytes # (Manual) PT INR APTT POC ABG pH POC ABG pCO2 POC ABG pO2 VBG pH Sodium 159 H 159 H Potassium 3.3 L Chloride 115.9 H 115.0 H Carbon Dioxide BUN 44 H 41 H Creatinine 0.7 L 0.6 L Glucose POC Glucose Lactic Acid Calcium Phosphorus Magnesium AST ALT Alkaline Phosphatase Total Creatine Kinase Troponin T 0.161 H* D Albumin LDL Cholesterol Direct HDL Cholesterol Urine pH Urine WBC (Auto) Crossmatch 12/28/18 12/28/18 12/28/18 22:20 22:20 23:11 WBC RBC Hgb Hct MCV MCH MCHC RDW Plt Count Seg Neuts % (Manual) Lymphocytes % (Manual) Nucleated RBC % Seg Neutrophils # Man Lymphocytes # (Manual) PT INR APTT POC ABG pH POC ABG pCO2 POC ABG pO2 VBG pH Sodium 157 H Potassium 3.0 L D Chloride 114.3 H Carbon Dioxide BUN 39 H Creatinine 0.5 L Glucose 74 L POC Glucose 68 L Lactic Acid Calcium Phosphorus Magnesium AST ALT Alkaline Phosphatase Total Creatine Kinase Troponin T 0.143 H* Albumin LDL Cholesterol Direct HDL Cholesterol Urine pH Urine WBC (Auto) Crossmatch 12/29/18 12/29/18 12/29/18 00:05 00:11 00:56 WBC RBC Hgb 9.3 L D Hct 29.7 L D MCV MCH MCHC RDW Plt Count Seg Neuts % (Manual) Lymphocytes % (Manual) Nucleated RBC % Seg Neutrophils # Man Lymphocytes # (Manual) PT INR APTT POC ABG pH POC ABG pCO2 POC ABG pO2 VBG pH Sodium 154 H Potassium 2.6 L* Chloride 110.7 H Carbon Dioxide BUN 34 H Creatinine 0.5 L Glucose 156 H POC Glucose 155 H Lactic Acid Calcium Phosphorus Magnesium AST ALT Alkaline Phosphatase Total Creatine Kinase Troponin T Albumin LDL Cholesterol Direct HDL Cholesterol Urine pH Urine WBC (Auto) Crossmatch 12/29/18 12/29/18 12/29/18 03:03 03:25 05:13 WBC RBC Hgb Hct MCV MCH MCHC RDW Plt Count Seg Neuts % (Manual) Lymphocytes % (Manual) Nucleated RBC % Seg Neutrophils # Man Lymphocytes # (Manual) PT INR APTT POC ABG pH 7.490 H POC ABG pCO2 34.5 L POC ABG pO2 78 L VBG pH Sodium Potassium Chloride Carbon Dioxide BUN Creatinine Glucose POC Glucose 182 H Lactic Acid Calcium Phosphorus Magnesium 1.60 L AST ALT Alkaline Phosphatase Total Creatine Kinase Troponin T Albumin LDL Cholesterol Direct HDL Cholesterol Urine pH Urine WBC (Auto) Crossmatch 12/29/18 12/29/18 12/29/18 08:00 08:27 09:44 WBC RBC Hgb Hct MCV MCH MCHC RDW Plt Count Seg Neuts % (Manual) Lymphocytes % (Manual) Nucleated RBC % Seg Neutrophils # Man Lymphocytes # (Manual) PT INR APTT POC ABG pH POC ABG pCO2 POC ABG pO2 VBG pH Sodium 146 H D Potassium 3.1 L Chloride 107.1 H Carbon Dioxide BUN 21 H Creatinine 0.4 L Glucose 303 H POC Glucose 278 H 309 H Lactic Acid Calcium Phosphorus Magnesium AST ALT Alkaline Phosphatase Total Creatine Kinase Troponin T Albumin LDL Cholesterol Direct HDL Cholesterol Urine pH Urine WBC (Auto) Crossmatch 12/29/18 12/29/18 12/29/18 11:39 11:39 11:39 WBC RBC 3.53 L Hgb 9.3 L Hct 29.8 L MCV MCH 26 L MCHC 31 L RDW 18.3 H Plt Count Seg Neuts % (Manual) Lymphocytes % (Manual) 5.0 L Nucleated RBC % 1.0 H Seg Neutrophils # Man Lymphocytes # (Manual) 0.5 L PT INR APTT 38.7 H POC ABG pH POC ABG pCO2 POC ABG pO2 VBG pH Sodium Potassium Chloride Carbon Dioxide BUN Creatinine Glucose POC Glucose Lactic Acid 2.60 H* Calcium Phosphorus Magnesium AST ALT Alkaline Phosphatase Total Creatine Kinase Troponin T Albumin LDL Cholesterol Direct HDL Cholesterol Urine pH Urine WBC (Auto) Crossmatch 12/29/18 12/29/18 12/29/18 11:39 12:09 13:23 WBC RBC Hgb Hct MCV MCH MCHC RDW Plt Count Seg Neuts % (Manual) Lymphocytes % (Manual) Nucleated RBC % Seg Neutrophils # Man Lymphocytes # (Manual) PT INR APTT POC ABG pH POC ABG pCO2 POC ABG pO2 VBG pH Sodium Potassium 3.3 L Chloride Carbon Dioxide BUN Creatinine 0.4 L Glucose 333 H POC Glucose 321 H Lactic Acid 2.80 H* Calcium Phosphorus Magnesium AST 197 H ALT 177 H Alkaline Phosphatase Total Creatine Kinase Troponin T Albumin 2.4 L LDL Cholesterol Direct HDL Cholesterol Urine pH Urine WBC (Auto) Crossmatch 12/29/18 12/29/18 12/29/18 15:22 15:37 17:54 WBC RBC Hgb Hct MCV MCH MCHC RDW Plt Count Seg Neuts % (Manual) Lymphocytes % (Manual) Nucleated RBC % Seg Neutrophils # Man Lymphocytes # (Manual) PT INR APTT POC ABG pH POC ABG pCO2 POC ABG pO2 VBG pH Sodium Potassium Chloride Carbon Dioxide BUN Creatinine Glucose POC Glucose 373 H 209 H Lactic Acid 3.50 H* Calcium Phosphorus Magnesium AST ALT Alkaline Phosphatase Total Creatine Kinase Troponin T Albumin LDL Cholesterol Direct HDL Cholesterol Urine pH Urine WBC (Auto) Crossmatch 12/29/18 12/29/18 12/30/18 21:13 23:05 05:34 WBC RBC Hgb Hct MCV MCH MCHC RDW Plt Count Seg Neuts % (Manual) Lymphocytes % (Manual) Nucleated RBC % Seg Neutrophils # Man Lymphocytes # (Manual) PT INR APTT POC ABG pH 7.327 L POC ABG pCO2 POC ABG pO2 VBG pH Sodium Potassium Chloride Carbon Dioxide BUN Creatinine Glucose POC Glucose Lactic Acid 3.90 H* 2.20 H* Calcium Phosphorus Magnesium AST ALT Alkaline Phosphatase Total Creatine Kinase Troponin T Albumin LDL Cholesterol Direct HDL Cholesterol Urine pH Urine WBC (Auto) Crossmatch 12/30/18 12/30/18 12/30/18 07:58 08:54 08:54 WBC 17.3 H RBC 2.61 L Hgb 7.0 L Hct 22.6 L D MCV MCH 27 L MCHC 31 L RDW 18.6 H Plt Count Seg Neuts % (Manual) Lymphocytes % (Manual) Nucleated RBC % Seg Neutrophils # Man Lymphocytes # (Manual) PT INR APTT POC ABG pH POC ABG pCO2 POC ABG pO2 VBG pH Sodium 160 H D Potassium 3.3 L Chloride 132.7 H Carbon Dioxide 15 L D BUN Creatinine 0.7 L D Glucose 116 H POC Glucose 116 H Lactic Acid Calcium Phosphorus 2.00 L Magnesium AST ALT Alkaline Phosphatase Total Creatine Kinase Troponin T Albumin LDL Cholesterol Direct HDL Cholesterol Urine pH Urine WBC (Auto) Crossmatch 12/30/18 12/30/18 12/30/18 12:11 18:19 21:23 WBC RBC Hgb Hct MCV MCH MCHC RDW Plt Count Seg Neuts % (Manual) Lymphocytes % (Manual) Nucleated RBC % Seg Neutrophils # Man Lymphocytes # (Manual) PT INR APTT POC ABG pH POC ABG pCO2 POC ABG pO2 VBG pH Sodium Potassium Chloride Carbon Dioxide BUN Creatinine Glucose POC Glucose 168 H 211 H 224 H Lactic Acid Calcium Phosphorus Magnesium AST ALT Alkaline Phosphatase Total Creatine Kinase Troponin T Albumin LDL Cholesterol Direct HDL Cholesterol Urine pH Urine WBC (Auto) Crossmatch 12/30/18 12/31/18 12/31/18 23:46 03:48 05:21 WBC RBC Hgb Hct MCV MCH MCHC RDW Plt Count Seg Neuts % (Manual) Lymphocytes % (Manual) Nucleated RBC % Seg Neutrophils # Man Lymphocytes # (Manual) PT INR APTT POC ABG pH 7.191 L POC ABG pCO2 33.9 L POC ABG pO2 VBG pH Sodium Potassium Chloride Carbon Dioxide BUN Creatinine Glucose POC Glucose 221 H 226 H Lactic Acid Calcium Phosphorus Magnesium AST ALT Alkaline Phosphatase Total Creatine Kinase Troponin T Albumin LDL Cholesterol Direct HDL Cholesterol Urine pH Urine WBC (Auto) Crossmatch 12/31/18 12/31/18 12/31/18 06:05 08:45 09:13 WBC RBC Hgb Hct MCV MCH MCHC RDW Plt Count Seg Neuts % (Manual) Lymphocytes % (Manual) Nucleated RBC % Seg Neutrophils # Man Lymphocytes # (Manual) PT INR APTT POC ABG pH POC ABG pCO2 POC ABG pO2 VBG pH Sodium 170 H* D Potassium 2.9 L* Chloride 138.6 H Carbon Dioxide 13 L BUN Creatinine Glucose 244 H POC Glucose 246 H 289 H Lactic Acid Calcium Phosphorus Magnesium AST 50 H ALT 93 H Alkaline Phosphatase 136 H Total Creatine Kinase Troponin T Albumin 1.9 L LDL Cholesterol Direct HDL Cholesterol Urine pH Urine WBC (Auto) Crossmatch 12/31/18 12/31/18 12/31/18 09:43 11:07 14:52 WBC 18.9 H RBC 2.98 L Hgb 7.8 L Hct 26.8 L MCV MCH 26 L MCHC 29 L RDW 20.4 H Plt Count Seg Neuts % (Manual) Lymphocytes % (Manual) Nucleated RBC % Seg Neutrophils # Man Lymphocytes # (Manual) PT INR APTT POC ABG pH POC ABG pCO2 POC ABG pO2 VBG pH Sodium Potassium Chloride Carbon Dioxide BUN Creatinine Glucose POC Glucose 286 H 352 H Lactic Acid Calcium Phosphorus Magnesium AST ALT Alkaline Phosphatase Total Creatine Kinase Troponin T Albumin LDL Cholesterol Direct HDL Cholesterol Urine pH Urine WBC (Auto) Crossmatch 12/31/18 17:21 WBC RBC Hgb Hct MCV MCH MCHC RDW Plt Count Seg Neuts % (Manual) Lymphocytes % (Manual) Nucleated RBC % Seg Neutrophils # Man Lymphocytes # (Manual) PT INR APTT POC ABG pH POC ABG pCO2 POC ABG pO2 VBG pH Sodium Potassium 3.1 L Chloride 126.0 H Carbon Dioxide BUN Creatinine 0.7 L Glucose 373 H POC Glucose Lactic Acid Calcium Phosphorus Magnesium AST ALT Alkaline Phosphatase Total Creatine Kinase Troponin T Albumin LDL Cholesterol Direct HDL Cholesterol Urine pH Urine WBC (Auto) Crossmatch Chest x-ray: report reviewed, image reviewed (bilateral infiltrates)
--- NOTE | 2018-12-31 18:15 | Electroencephalogram Report ---
Electroencephalogram EEG Date of exam: 12/31/18 History: Hyperglycemia followed by shortness of breath and then cardiac arrest 12/28/18. Baseline is nonverbal. Left frontal craniotomy skull defect noted. Description: This 19 channel (21 EKG channel) digital EEG is done with the 10/20 internat ional montage in a 23 minute recording the EEG is characterized by very low voltage with a little bit of EKG artifact and ICU noise but may be electrically silent. No epileptiform activity was seen. No reactivity to stimulus was seen, such as sternal rub. Interpretation: Severely abnormal EEG due to possible brain though with ICU noise, cannot be said definitively to be completely silent.
--- NOTE | 2018-12-31 18:24 | Consultation ---
History of Present Illness Consult date: 12/31/18 Requesting physician: ANN-MARIE ALVAREZ Reason for Consult: coma following arrest Chief complaint: coma following arrest History of present illness: This 53-year-old -[place] male with a history of epilepsy is stated to have had hyperglycemia followed by shortness of breath and cardiac arrest on 12/28/18. His baseline is nonverbal. Another examiner noted a left frontal craniotomy defect. He was apparently on levetiracetam 500 mg twice a day prior to his arrest. Sodium has risen to 179 today with somewhat low potassium as well. Consult requested for possible brain . Past History Past Medical History: COPD (per chart), diabetes, hypertension, seizures Past Surgical History: Other Social history: other Family history: no significant family history Medications and Allergies Allergies Allergy/AdvReac Type Severity Reaction Status Date / Time No Known Drug Allergies Allergy Unknown Verified 06/11/18 12:07 Home Medications Medication Instructions Recorded Confirmed Last Taken Type Sodium Bicarbonate 650 mg FEEDTUBE QID 06/11/18 12/28/18 Unknown History Acetaminophen [Acetaminophen ORAL 20.3 ml FEEDTUBE Q6H PRN 08/21/18 12/28/18 Unknown History LIQ] Ascorbic Acid [Vitamin C] 5 ml FEEDTUBE Q12H 08/21/18 12/28/18 Unknown History Insulin Detemir [Levemir VIAL] 25 units SUB-Q QHS 08/21/18 12/28/18 Unknown History Metoprolol [Lopressor TAB] 100 mg FEEDTUBE Q12H 08/21/18 12/28/18 Unknown History Multivit-Minerals/Ferrous Gluc 5 ml FEEDTUBE DAILY@0600 08/21/18 12/28/18 Unknown History [Centrum Multivit-Mineral Liq] Potassium Chloride 15 ml FEEDTUBE DAILY@0600 08/21/18 12/28/18 Unknown History Zinc Sulfate 220 mg FEEDTUBE Q12H 08/21/18 12/28/18 Unknown History hydrALAZINE [Apresoline TAB] 10 mg FEEDTUBE Q8H 08/21/18 12/28/18 Unknown H istory levETIRAcetam [Keppra ORAL LIQ] 500 mg FEEDTUBE Q12H 08/21/18 12/28/18 Unknown History Acetaminophen [Acetaminophen ORAL 20.3 ml FEEDTUBE Q6H PRN 12/28/18 12/28/18 Unknown History LIQ] Calcium Acetate 10 ml FEEDTUBE TID 12/28/18 12/28/18 Unknown History Docusate Sodium 15 ml FEEDTUBE DAILY 12/28/18 12/28/18 Unknown History Famotidine [Pepcid] 20 mg PO Q12H 12/28/18 12/28/18 Unknown History Ferrous Sulfate [Ferrous Sulfate 5 ml FEEDTUBE BID 12/28/18 12/28/18 Unknown History 220 MG/5 ML] HYDROcodone/APAP 5-325 [[place] 1 each FEEDTUBE BID 12/28/18 12/28/18 Unknown History 5/325] Lipase/Protease/Amylase [[place] 1 each FEEDTUBE Q8H PRN 12/28/18 12/28/18 U nknown History 12,000 Units] Lispro Insulin [Humalog] See Protocol SUB-Q ACHS 12/28/18 12/28/18 Unknown History Sennosides [Senna Lax] 8.6 mg FEEDTUBE DAILY 12/28/18 12/28/18 Unknown History traMADol [Ultram] 50 mg FEEDTUBE BID PRN 12/28/18 12/28/18 Unknown History Active Meds: Active Medications Alteplase, Recombinant (Cathflo) 2 mg IV ONCE PATRICIO Stop: 12/31/18 23:00 Last Admin: 12/31/18 15:33 Dose: 2 mg Documented by: Lipase/Protease/Amylase (Ruth Richardson 10,500 Unit) 1 each FEEDTUBE PRN PRN PRN Reason: For Clogged Feeding Tube Dextrose (D50w (25gm) Syringe) 50 ml IV PRN PRN PRN Reason: Hypoglycemia Hydrophilic Ointment (Vaseline Lip Therapy) 1 applic TP Q2HR PRN PRN Reason: Dry Lips Piperacillin Sod/Tazobactam Sod (Zosyn/Ns 4.5gm/100ml) 4.5 gm in 100 mls @ 200 mls/hr IV Q8H PATRICIO; Protocol Last Admin: 12/31/18 11:30 Dose: 200 mls/hr Documented by: Phenylephrine HCl 100 mg/ (Sodium Chloride) 100 mls @ 3 mls/hr IV TITR STA; Protocol Stop: 01/01/19 04:02 Vasopressin 20 unit/ Sodium (Chloride) 101 mls @ 9.09 mls/hr IV TITR PATRICIO; Protocol Last Admin: 12/31/18 15:10 Dose: 0.03 units/min, 9.09 mls/hr Documented by: Norepinephrine 8 mg/ Sodium (Chloride) 250 mls @ 3.75 mls/hr IV TITR PATRICIO; Protocol Last Titration: 12/31/18 18:00 Dose: 8 mcg/min, 15 mls/hr Documented by: Dextrose (D5w) 1,000 mls @ 100 mls/hr IV DIRECT PATRICIO Last Admin: 12/31/18 09:38 Dose: 100 mls/hr Documented by: Insulin Glargine (Lantus) 10 units SUB-Q QAMDIAB PATRICIO Last Admin: 12/31/18 08:46 Dose: 10 units Documented by: Insulin Human Lispro (Humalog) 0 unit SUB-Q Q6HR PATRICIO; Protocol Last Admin: 12/31/18 18:13 Dose: 10 unit Documented by: Multi-Ingred Cream/Lotion/Oil/Oint (Artificial Tears Ophth Oint) 1 applic OU Q4HR PRN PRN Reason: Dry Eye(s) Naloxone HCl (Narcan 0.4 Mg/1 Ml) 0.1 mg IV Q2MIN PRN PRN Reason: Res Rate </= 8 or 02 SAT < 92% Ondansetron HCl (Zofran) 4 mg IV Q8H PRN PRN Reason: Nausea And Vomiting Simple Syrup (Simple Syrup) 15 ml FEEDTUBE PRN PRN PRN Reason: Hypoglycemia Simple Syrup (Simple Syrup) 30 ml FEEDTUBE PRN PRN PRN Reason: Hypoglycemia Sodium Bicarbonate (Sodium Bicarbonate) 325 mg FEEDTUBE PRN PRN PRN Reason: For Clogged Feeding Tube Sodium Chloride (Sodium Chloride Flush Syringe 10 Ml) 10 ml IV BID [facility] Last Admin: 12/31/18 10:03 Dose: 10 ml Documented by: Sodium Chloride (Sodium Chloride Flush Syringe 10 Ml) 10 ml IV PRN PRN PRN Reason: LINE FLUSH Review of Systems ROS unobtainable: due to mental status Physical Examination - Vital Signs Vital Signs: Vital Signs Pulse BP 44 L 55/28 12/28/18 07:21 12/28/18 07:21 - Physical Exam Narrative exam: General appearance: well developed well nourished (per BMI) early 50s - [place] male, intubated. HEENT: Left frontal skull defect perhaps 8 cm in diameter, Michelle not enlarged or indurated. No bruits. Oropharynx obscured by endotracheal tube. Neck: supple, no bruits. Heart: no murmur or extra sounds. Extremities: no clubbing or cyanosis on the left, has right AKA, no edema on the left. Cannot feel left posterior tibial or dorsalis pedis pulse. Neurologic Exam: Mental status: eye open a little on the left due to facial weakness. No eye opening to voice or pain. Does not track me visually or obey commands. No response to orientation questions. Cranial nerves: no blink to threat, cannot see fundi due to cloudy media, no r eaction of pupils to light at 2 mm, negative Doll's eyes, no response to pinprick, corneals absent X 2, no grimace to supraorbital pressure, cannot assess Nielsen, gags are absent, cough absent to tracheal suction, cannot assess shoulder shrug or tongue protrusion. Cerebellar: cannot assess. Sensory: no response to pinprick or nailbed pressure in upper or lower extremities. Motor Exam Upper Extremities: no response to nailbed pressure or pinprick or supraorbital pressure or TMJ pressure or chest or neck skin pinch or palmar rub. Fingers are slightly clenched on the left and more so on the right. Motor Exam Lower Extremities: no response to nailbed pressure or pinprick or supraorbital pressure or TMJ pressure or chest or neck skin pinch or plantar rub on the left. Reflexes: palmomental is negative, snout is negative, jaw jerk is negative . Triceps, biceps and brachioradialis are 0 bilaterally. Jacob's is negative bilaterally. Knee jerk and ankle jerk are 0 on the left without clonus. Toe is mute on the left to Babinski testing. Results - Laboratory Findings CBC and BMP: 12/31/18 09:43 12/31/18 17:21 Abnormal Lab Findings: Abnormal Labs 12/28/18 12/28/18 12/28/18 06:56 07:20 07:20 WBC 19.1 H RBC 2.42 L Hgb 6.2 L Hct 23.5 L MCV 97 H MCH 26 L MCHC 27 L RDW 20.5 H Plt Count 507 H Seg Neuts % (Manual) 79.0 H Lymphocytes % (Manual) Nucleated RBC % 1.0 H Seg Neutrophils # Man 15.1 H Lymphocytes # (Manual) PT INR APTT POC ABG pH POC ABG pCO2 POC ABG pO2 VBG pH Sodium 160 H Potassium 5.6 H Chloride 108.5 H Carbon Dioxide 21 L BUN 67 H Creatinine Glucose 457 H POC Glucose 357 H Lactic Acid Calcium > 13.0 H* Phosphorus Magnesium AST 325 H ALT 190 H Alkaline Phosphatase 132 H Total Creatine Kinase 213 H Troponin T 0.568 H* Albumin 2.8 L LDL Cholesterol Direct 49 L HDL Cholesterol 27 L Urine pH Urine WBC (Auto) Crossmatch 12/28/18 12/28/18 12/28/18 07:20 07:20 07:20 WBC RBC Hgb Hct MCV MCH MCHC RDW Plt Count Seg Neuts % (Manual) Lymphocytes % (Manual) Nucleated RBC % Seg Neutrophils # Man Lymphocytes # (Manual) PT 17.1 H INR 1.31 H APTT POC ABG pH POC ABG pCO2 POC ABG pO2 VBG pH 7.149 L* Sodium Potassium Chloride Carbon Dioxide BUN Creatinine Glucose POC Glucose Lactic Acid 15.40 H* Calcium Phosphorus Magnesium AST ALT Alkaline Phosphatase Total Creatine Kinase Troponin T Albumin LDL Cholesterol Direct HDL Cholesterol Urine pH Urine WBC (Auto) Crossmatch 12/28/18 12/28/18 12/28/18 07:20 07:40 08:02 WBC RBC Hgb Hct MCV MCH MCHC RDW Plt Count Seg Neuts % (Manual) Lymphocytes % (Manual) Nucleated RBC % Seg Neutrophils # Man Lymphocytes # (Manual) PT INR APTT POC ABG pH POC ABG pCO2 POC ABG pO2 VBG pH Sodium Potassium Chloride Carbon Dioxide BUN Creatinine Glucose POC Glucose Lactic Acid Calcium Phosphorus 9.80 H Magnesium 3.50 H AST ALT Alkaline Phosphatase Total Creatine Kinase Troponin T Albumin LDL Cholesterol Direct HDL Cholesterol Urine pH 8.0 H Urine WBC (Auto) 59.0 H Crossmatch See Detail 12/28/18 12/28/18 12/28/18 08:03 10:02 10:10 WBC RBC Hgb Hct MCV MCH MCHC RDW Plt Count Seg Neuts % (Manual) Lymphocytes % (Manual) Nucleated RBC % Seg Neutrophils # Man Lymphocytes # (Manual) PT INR APTT POC ABG pH 7.170 L POC ABG pCO2 60.4 H 45.3 H POC ABG pO2 135 H VBG pH Sodium Potassium Chloride Carbon Dioxide BUN Creatinine Glucose POC Glucose 288 H Lactic Acid Calcium Phosphorus Magnesium AST ALT Alkaline Phosphatase Total Creatine Kinase Troponin T Albumin LDL Cholesterol Direct HDL Cholesterol Urine pH Urine WBC (Auto) Crossmatch 12/28/18 12/28/18 12/28/18 11:14 12:34 14:05 WBC RBC Hgb Hct MCV MCH MCHC RDW Plt Count Seg Neuts % (Manual) Lymphocytes % (Manual) Nucleated RBC % Seg Neutrophils # Man Lymphocytes # (Manual) PT INR APTT POC ABG pH POC ABG pCO2 POC ABG pO2 VBG pH Sodium Potassium Chloride Carbon Dioxide BUN Creatinine Glucose POC Glucose 268 H 255 H 285 H Lactic Acid Calcium Phosphorus Magnesium AST ALT Alkaline Phosphatase Total Creatine Kinase Troponin T Albumin LDL Cholesterol Direct HDL Cholesterol Urine pH Urine WBC (Auto) Crossmatch 12/28/18 12/28/18 12/28/18 15:13 16:36 16:45 WBC RBC Hgb Hct MCV MCH MCHC RDW Plt Count Seg Neuts % (Manual) Lymphocytes % (Manual) Nucleated RBC % Seg Neutrophils # Man Lymphocytes # (Manual) PT INR APTT POC ABG pH POC ABG pCO2 POC ABG pO2 VBG pH Sodium 159 H Potassium 3.2 L D Chloride 115.2 H Carbon Dioxide 31 H D BUN 51 H Creatinine 0.7 L Glucose 159 H POC Glucose 214 H 168 H Lactic Acid Calcium 10.3 H D Phosphorus Magnesium AST ALT Alkaline Phosphatase Total Creatine Kinase Troponin T Albumin LDL Cholesterol Direct HDL Cholesterol Urine pH Urine WBC (Auto) Crossmatch 12/28/18 12/28/18 12/28/18 19:09 19:09 21:45 WBC RBC Hgb Hct MCV MCH MCHC RDW Plt Count Seg Neuts % (Manual) Lymphocytes % (Manual) Nucleated RBC % Seg Neutrophils # Man Lymphocytes # (Manual) PT INR APTT POC ABG pH POC ABG pCO2 POC ABG pO2 VBG pH Sodium 159 H 159 H Potassium 3.3 L Chloride 115.9 H 115.0 H Carbon Dioxide BUN 44 H 41 H Creatinine 0.7 L 0.6 L Glucose POC Glucose Lactic Acid Calcium Phosphorus Magnesium AST ALT Alkaline Phosphatase Total Creatine Kinase Troponin T 0.161 H* D Albumin LDL Cholesterol Direct HDL Cholesterol Urine pH Urine WBC (Auto) Crossmatch 12/28/18 12/28/18 12/28/18 22:20 22:20 23:11 WBC RBC Hgb Hct MCV MCH MCHC RDW Plt Count Seg Neuts % (Manual) Lymphocytes % (Manual) Nucleated RBC % Seg Neutrophils # Man Lymphocytes # (Manual) PT INR APTT POC ABG pH POC ABG pCO2 POC ABG pO2 VBG pH Sodium 157 H Potassium 3.0 L D Chloride 114.3 H Carbon Dioxide BUN 39 H Creatinine 0.5 L Glucose 74 L POC Glucose 68 L Lactic Acid Calcium Phosphorus Magnesium AST ALT Alkaline Phosphatase Total Creatine Kinase Troponin T 0.143 H* Albumin LDL Cholesterol Direct HDL Cholesterol Urine pH Urine WBC (Auto) Crossmatch 12/29/18 12/29/18 12/29/18 00:05 00:11 00:56 WBC RBC Hgb 9.3 L D Hct 29.7 L D MCV MCH MCHC RDW Plt Count Seg Neuts % (Manual) Lymphocytes % (Manual) Nucleated RBC % Seg Neutrophils # Man Lymphocytes # (Manual) PT INR APTT POC ABG pH POC ABG pCO2 POC ABG pO2 VBG pH Sodium 154 H Potassium 2.6 L* Chloride 110.7 H Carbon Dioxide BUN 34 H Creatinine 0.5 L Glucose 156 H POC Glucose 155 H Lactic Acid Calcium Phosphorus Magnesium AST ALT Alkaline Phosphatase Total Creatine Kinase Troponin T Albumin LDL Cholesterol Direct HDL Cholesterol Urine pH Urine WBC (Auto) Crossmatch 12/29/18 12/29/18 12/29/18 03:03 03:25 05:13 WBC RBC Hgb Hct MCV MCH MCHC RDW Plt Count Seg Neuts % (Manual) Lymphocytes % (Manual) Nucleated RBC % Seg Neutrophils # Man Lymphocytes # (Manual) PT INR APTT POC ABG pH 7.490 H POC ABG pCO2 34.5 L POC ABG pO2 78 L VBG pH Sodium Potassium Chloride Carbon Dioxide BUN Creatinine Glucose POC Glucose 182 H Lactic Acid Calcium Phosphorus Magnesium 1.60 L AST ALT Alkaline Phosphatase Total Creatine Kinase Troponin T Albumin LDL Cholesterol Direct HDL Cholesterol Urine pH Urine WBC (Auto) Crossmatch 12/29/18 12/29/18 12/29/18 08:00 08:27 09:44 WBC RBC Hgb Hct MCV MCH MCHC RDW Plt Count Seg Neuts % (Manual) Lymphocytes % (Manual) Nucleated RBC % Seg Neutrophils # Man Lymphocytes # (Manual) PT INR APTT POC ABG pH POC ABG pCO2 POC ABG pO2 VBG pH Sodium 146 H D Potassium 3.1 L Chloride 107.1 H Carbon Dioxide BUN 21 H Creatinine 0.4 L Glucose 303 H POC Glucose 278 H 309 H Lactic Acid Calcium Phosphorus Magnesium AST ALT Alkaline Phosphatase Total Creatine Kinase Troponin T Albumin LDL Cholesterol Direct HDL Cholesterol Urine pH Urine WBC (Auto) Crossmatch 12/29/18 12/29/18 12/29/18 11:39 11:39 11:39 WBC RBC 3.53 L Hgb 9.3 L Hct 29.8 L MCV MCH 26 L MCHC 31 L RDW 18.3 H Plt Count Seg Neuts % (Manual) Lymphocytes % (Manual) 5.0 L Nucleated RBC % 1.0 H Seg Neutrophils # Man Lymphocytes # (Manual) 0.5 L PT INR APTT 38.7 H POC ABG pH POC ABG pCO2 POC ABG pO2 VBG pH Sodium Potassium Chloride Carbon Dioxide BUN Creatinine Glucose POC Glucose Lactic Acid 2.60 H* Calcium Phosphorus Magnesium AST ALT Alkaline Phosphatase Total Creatine Kinase Troponin T Albumin LDL Cholesterol Direct HDL Cholesterol Urine pH Urine WBC (Auto) Crossmatch 12/29/18 12/29/18 12/29/18 11:39 12:09 13:23 WBC RBC Hgb Hct MCV MCH MCHC RDW Plt Count Seg Neuts % (Manual) Lymphocytes % (Manual) Nucleated RBC % Seg Neutrophils # Man Lymphocytes # (Manual) PT INR APTT POC ABG pH POC ABG pCO2 POC ABG pO2 VBG pH Sodium Potassium 3.3 L Chloride Carbon Dioxide BUN Creatinine 0.4 L Glucose 333 H POC Glucose 321 H Lactic Acid 2.80 H* Calcium Phosphorus Magnesium AST 197 H ALT 177 H Alkaline Phosphatase Total Creatine Kinase Troponin T Albumin 2.4 L LDL Cholesterol Direct HDL Cholesterol Urine pH Urine WBC (Auto) Crossmatch 12/29/18 12/29/18 12/29/18 15:22 15:37 17:54 WBC RBC Hgb Hct MCV MCH MCHC RDW Plt Count Seg Neuts % (Manual) Lymphocytes % (Manual) Nucleated RBC % Seg Neutrophils # Man Lymphocytes # (Manual) PT INR APTT POC ABG pH POC ABG pCO2 POC ABG pO2 VBG pH Sodium Potassium Chloride Carbon Dioxide BUN Creatinine Glucose POC Glucose 373 H 209 H Lactic Acid 3.50 H* Calcium Phosphorus Magnesium AST ALT Alkaline Phosphatase Total Creatine Kinase Troponin T Albumin LDL Cholesterol Direct HDL Cholesterol Urine pH Urine WBC (Auto) Crossmatch 12/29/18 12/29/18 12/30/18 21:13 23:05 05:34 WBC RBC Hgb Hct MCV MCH MCHC RDW Plt Count Seg Neuts % (Manual) Lymphocytes % (Manual) Nucleated RBC % Seg Neutrophils # Man Lymphocytes # (Manual) PT INR APTT POC ABG pH 7.327 L POC ABG pCO2 POC ABG pO2 VBG pH Sodium Potassium Chloride Carbon Dioxide BUN Creatinine Glucose POC Glucose Lactic Acid 3.90 H* 2.20 H* Calcium Phosphorus Magnesium AST ALT Alkaline Phosphatase Total Creatine Kinase Troponin T Albumin LDL Cholesterol Direct HDL Cholesterol Urine pH Urine WBC (Auto) Crossmatch 12/30/18 12/30/18 12/30/18 07:58 08:54 08:54 WBC 17.3 H RBC 2.61 L Hgb 7.0 L Hct 22.6 L D MCV MCH 27 L MCHC 31 L RDW 18.6 H Plt Count Seg Neuts % (Manual) Lymphocytes % (Manual) Nucleated RBC % Seg Neutrophils # Man Lymphocytes # (Manual) PT INR APTT POC ABG pH POC ABG pCO2 POC ABG pO2 VBG pH Sodium 160 H D Potassium 3.3 L Chloride 132.7 H Carbon Dioxide 15 L D BUN Creatinine 0.7 L D Glucose 116 H POC Glucose 116 H Lactic Acid Calcium Phosphorus 2.00 L Magnesium AST ALT Alkaline Phosphatase Total Creatine Kinase Troponin T Albumin LDL Cholesterol Direct HDL Cholesterol Urine pH Urine WBC (Auto) Crossmatch 12/30/18 12/30/18 12/30/18 12:11 18:19 21:23 WBC RBC Hgb Hct MCV MCH MCHC RDW Plt Count Seg Neuts % (Manual) Lymphocytes % (Manual) Nucleated RBC % Seg Neutrophils # Man Lymphocytes # (Manual) PT INR APTT POC ABG pH POC ABG pCO2 POC ABG pO2 VBG pH Sodium Potassium Chloride Carbon Dioxide BUN Creatinine Glucose POC Glucose 168 H 211 H 224 H Lactic Acid Calcium Phosphorus Magnesium AST ALT Alkaline Phosphatase Total Creatine Kinase Troponin T Albumin LDL Cholesterol Direct HDL Cholesterol Urine pH Urine WBC (Auto) Crossmatch 12/30/18 12/31/18 12/31/18 23:46 03:48 05:21 WBC RBC Hgb Hct MCV MCH MCHC RDW Plt Count Seg Neuts % (Manual) Lymphocytes % (Manual) Nucleated RBC % Seg Neutrophils # Man Lymphocytes # (Manual) PT INR APTT POC ABG pH 7.191 L POC ABG pCO2 33.9 L POC ABG pO2 VBG pH Sodium Potassium Chloride Carbon Dioxide BUN Creatinine Glucose POC Glucose 221 H 226 H Lactic Acid Calcium Phosphorus Magnesium AST ALT Alkaline Phosphatase Total Creatine Kinase Troponin T Albumin LDL Cholesterol Direct HDL Cholesterol Urine pH Urine WBC (Auto) Crossmatch 12/31/18 12/31/18 12/31/18 06:05 08:45 09:13 WBC RBC Hgb Hct MCV MCH MCHC RDW Plt Count Seg Neuts % (Manual) Lymphocytes % (Manual) Nucleated RBC % Seg Neutrophils # Man Lymphocytes # (Manual) PT INR APTT POC ABG pH POC ABG pCO2 POC ABG pO2 VBG pH Sodium 170 H* D Potassium 2.9 L* Chloride 138.6 H Carbon Dioxide 13 L BUN Creatinine Glucose 244 H POC Glucose 246 H 289 H Lactic Acid Calcium Phosphorus Magnesium AST 50 H ALT 93 H Alkaline Phosphatase 136 H Total Creatine Kinase Troponin T Albumin 1.9 L LDL Cholesterol Direct HDL Cholesterol Urine pH Urine WBC (Auto) Crossmatch 12/31/18 12/31/18 12/31/18 09:43 11:07 14:52 WBC 18.9 H RBC 2.98 L Hgb 7.8 L Hct 26.8 L MCV MCH 26 L MCHC 29 L RDW 20.4 H Plt Count Seg Neuts % (Manual) Lymphocytes % (Manual) Nucleated RBC % Seg Neutrophils # Man Lymphocytes # (Manual) PT INR APTT POC ABG pH POC ABG pCO2 POC ABG pO2 VBG pH Sodium Potassium Chloride Carbon Dioxide BUN Creatinine Glucose POC Glucose 286 H 352 H Lactic Acid Calcium Phosphorus Magnesium AST ALT Alkaline Phosphatase Total Creatine Kinase Troponin T Albumin LDL Cholesterol Direct HDL Cholesterol Urine pH Urine WBC (Auto) Crossmatch 12/31/18 12/31/18 17:21 18:13 WBC RBC Hgb Hct MCV MCH MCHC RDW Plt Count Seg Neuts % (Manual) Lymphocytes % (Manual) Nucleated RBC % Seg Neutrophils # Man Lymphocytes # (Manual) PT INR APTT POC ABG pH POC ABG pCO2 POC ABG pO2 VBG pH Sodium 163 H* Potassium 3.1 L Chloride 126.0 H Carbon Dioxide 20 L D BUN Creatinine 0.7 L Glucose 373 H POC Glucose 373 H Lactic Acid Calcium Phosphorus Magnesium AST ALT Alkaline Phosphatase Total Creatine Kinase Troponin T Albumin LDL Cholesterol Direct HDL Cholesterol Urine pH Urine WBC (Auto) Crossmatch Assessment and Plan Impression: 1. Hypoxic ischemic encephalopathy 2. Seizure disorder Plan: 1. EEG done, may indicate brain but always a little noisy in ICU. 2. Per Dr. Alvarez, since on pressors, cannot repeat CT or do nuclear medicine blood flow study. 3. As I indicated by text to him, need to correct Na and other labs including ABGs before we can do a sleep apnea test for brain . He will consult Dr. Pederson, as I suggested, since tricky to pick a DDAVP dose given that he is on a vasopressin drip too. 4. Will order levetiracetam level. 40 minutes critical care time spent with this patient. Thank you for an interesting consultation on this unfortunate early 50s man.
[2018-12-31 18:35] LABS: Bilirubin,Urine NEG (Negative); Blood,Urine MOD (Negative); Color,Urine Straw (Yellow); Mucus,Urine FEW /HPF; Protein,Urine <15 mg/dL mg/dL (Negative); Urobilinogen,Urine < 2.0 mg/dL (<2.0)
[2018-12-31] MEDS ORDERED: POTASSIUM CHLORIDE FEEDTUBE ONE (19:01)
[2018-12-31] MEDS ORDERED: D50W (25GM) Syringe IV PRN (19:02)
[2018-12-31] MEDS: D5W 1,000 ML with KCL 20 MEQ IV SCH (22:33)
[2018-12-31] MEDS: HumuLIN R 100 UNITS in NACL 0.9% 99 ML IV SCH (22:35)
[2019-01-01] MEDS: Vasostrict 20 UNIT in NACL 0.9% 100 ML IV SCH ×2 (02:25→14:11)
[2019-01-01] MEDS: ZOSYN/NS 4.5GM/100ML 4.5 GM/100 ML VIAL IV SCH ×2 (04:11→14:12)
--- NOTE | 2019-01-01 04:21 | XRay Report ---
PROCEDURE: XR CHEST 1V AP TECHNIQUE: A portable upright view of the chest was submitted. HISTORY: follow up respiratory failure COMPARISONS: 12/31/2018 FINDINGS: The lungs remain diffusely congested with stable bilateral airspace disease and effusions. The heart size is normal. The tip of the ET tube is 3 cm above the [place]. The tip of the right-sided PICC line is in good position in the SVC. The bones and soft tissues otherwise are unchanged. IMPRESSION: Stable pulmonary edema pattern with bilateral airspace disease and pleural effusions.. This document is electronically signed by Garret Traore MD., January 01 2019 04:19:14 AM ET
[2019-01-01] MEDS: D5W 1,000 ML with KCL 20 MEQ IV SCH (05:20)
[2019-01-01] MEDS: HumuLIN R 100 UNITS in NACL 0.9% 99 ML IV SCH ×2 (06:05→10:33)
[2019-01-01 07:09] LABS: Hematocrit 20.9 % (35.5-45.6); Hemoglobin 6.4 gm/dl (11.8-15.2); Mean Corpuscular HGB Conc 31 % (32-34); Mean Corpuscular Volume 87 fl (84-94); Platelet Count 163 K/mm3 (140-440); Red Blood Count 2.41 M/mm3 (3.65-5.03); Red Cell Distribution Width 19.5 % (13.2-15.2)
[2019-01-01] MEDS: LEVOPHED 8 MG in NACL 0.9% 250ML 242 ML IV SCH ×2 (08:00→15:41)
[2019-01-01 08:02] LABS: Alanine Aminotransferase 61 units/L (7-56); Albumin 1.7 g/dL (3.9-5); BUN/Creatinine Ratio 15; Blood Urea Nitrogen 12 mg/dL (9-20); Calcium 8.8 mg/dL (8.4-10.2); Hemolysis Index 0
--- NOTE | 2019-01-01 09:06 | Progress Note ---
Assessment and Plan Assessment * Hypernatremia * Sepsis * Cardiac arrest * Acute respiratory failure on mechanical ventilation * Hypokalemia * Anemia * Hypercalcemia Plan: * Do not suspect DI as UOsm>SOsm. Na improved with current management * Continue D5W 50ml/hour and free H2O via PEG 300ml [id number] * Vent management per CCM/pulm * Pressors prn to maintain MAP>65 * Replete lytes prn * Broad spectrum abx per primary team * Cardiology recommendations noted * Transfuse pRBC prn Subjective Date of service: 01/01/19 Principal diagnosis: cardiac arrest Interval history: No acute events overnight Objective - Vital Signs Vital signs: Vital Signs - 12hr 12/31/18 12/31/18 12/31/18 21:15 21:30 21:45 Temperature Pulse Rate 76 77 78 Pulse Rate [ From Monitor] Respiratory 24 24 24 Rate Blood Pressure 89/51 104/53 99/56 O2 Sat by Pulse 97 97 Oximetry 12/31/18 12/31/18 12/31/18 22:00 22:15 22:30 Temperature Pulse Rate 79 78 78 Pulse Rate [ From Monitor] Respiratory 24 24 24 Rate Blood Pressure 94/57 96/55 94/55 O2 Sat by Pulse 97 97 96 Oximetry 12/31/18 12/31/18 12/31/18 22:45 22:51 23:00 Temperature Pulse Rate 79 79 79 Pulse Rate [ From Monitor] Respiratory 24 24 24 Rate Blood Pressure 92/53 92/53 97/56 O2 Sat by Pulse 97 98 Oximetry 12/31/18 12/31/18 12/31/18 23:06 23:10 23:15 Temperature 100.7 F H Pulse Rate 80 80 Pulse Rate [ From Monitor] Respiratory 24 24 Rate Blood Pressure 97/56 93/54 O2 Sat by Pulse 97 97 Oximetry 12/31/18 12/31/18 12/31/18 23:30 23:45 23:53 Temperature Pulse Rate 80 80 80 Pulse Rate [ From Monitor] Respiratory 24 24 Rate Blood Pressure 90/53 90/51 90/53 O2 Sat by Pulse 97 97 98 Oximetry 01/01/19 01/01/19 01/01/19 00:00 00:15 00:30 Temperature Pulse Rate 80 80 81 Pulse Rate [ 80 From Monitor] Respiratory 24 24 24 Rate Blood Pressure 93/52 91/51 90/53 O2 Sat by Pulse 97 97 96 Oximetry 01/01/19 01/01/19 01/01/19 00:45 01:00 01:15 Temperature Pulse Rate 81 67 81 Pulse Rate [ From Monitor] Respiratory 24 24 24 Rate Blood Pressure 95/54 95/54 97/54 O2 Sat by Pulse 96 96 Oximetry 01/01/19 01/01/19 01/01/19 01:30 01:45 02:00 Temperature Pulse Rate 80 81 81 Pulse Rate [ From Monitor] Respiratory 24 24 24 Rate Blood Pressure 100/54 101/57 98/56 O2 Sat by Pulse 95 95 96 Oximetry 01/01/19 01/01/19 01/01/19 02:15 02:30 02:45 Temperature Pulse Rate 81 82 81 Pulse Rate [ From Monitor] Respiratory 24 24 Rate Blood Pressure 94/53 101/57 105/63 O2 Sat by Pulse 95 96 96 Oximetry 01/01/19 01/01/19 01/01/19 03:00 03:15 03:26 Temperature 99.7 F H Pulse Rate 79 79 Pulse Rate [ From Monitor] Respiratory 24 24 Rate Blood Pressure 102/56 105/58 O2 Sat by Pulse 97 96 Oximetry 01/01/19 01/01/19 01/01/19 03:30 03:45 04:00 Temperature Pulse Rate 79 78 79 Pulse Rate [ 78 From Monitor] Respiratory 24 24 Rate Blood Pressure 105/60 104/58 103/56 O2 Sat by Pulse 97 97 97 Oximetry 01/01/19 01/01/19 01/01/19 04:15 04:26 04:30 Temperature Pulse Rate 78 78 78 Pulse Rate [ From Monitor] Respiratory 24 24 Rate Blood Pressure 105/58 105/58 105/58 O2 Sat by Pulse 97 98 96 Oximetry 01/01/19 01/01/19 01/01/19 04:45 05:00 05:15 Temperature Pulse Rate 78 77 76 Pulse Rate [ From Monitor] Respiratory 24 24 24 Rate Blood Pressure 103/55 103/55 112/61 O2 Sat by Pulse 95 97 96 Oximetry 01/01/19 01/01/19 01/01/19 05:30 05:45 06:00 Temperature Pulse Rate 75 76 75 Pulse Rate [ From Monitor] Respiratory 24 24 24 Rate Blood Pressure 114/63 111/61 115/64 O2 Sat by Pulse 96 97 98 Oximetry 01/01/19 01/01/1919 06:15 06:30 06:45 Temperature Pulse Rate 75 74 73 Pulse Rate [ From Monitor] Respiratory 24 24 24 Rate Blood Pressure 114/63 116/63 120/68 O2 Sat by Pulse 97 97 97 Oximetry 01/01/19 01/01/19 01/01/19 07:00 07:15 07:30 Temperature Pulse Rate 73 73 71 Pulse Rate [ From Monitor] Respiratory 24 24 24 Rate Blood Pressure 117/63 114/62 91/38 O2 Sat by Pulse 97 96 99 Oximetry 01/01/19 01/01/19 01/01/19 07:45 07:48 08:00 Temperature 97.4 F L 97.4 F L Pulse Rate 68 Pulse Rate [ From Monitor] Respiratory 24 Rate Blood Pressure 82/48 O2 Sat by Pulse 98 Oximetry 01/01/19 08:45 Temperature Pulse Rate 71 Pulse Rate [ From Monitor] Respiratory Rate Blood Pressure 117/65 O2 Sat by Pulse 95 Oximetry - General Appearance General appearance: intubated EENT: other (ETT in place) Respiratory: Present: Other (coarse breath sounds) Cardiology: regular, S1S2 Gastrointestinal: hypoactive bowel sounds Integumentary: warm and dry Musculoskeletal: other (no edema) Psychiatric: other (unresponsive) - Lab 01/01/19 06:45 01/01/19 13:00 Most recent lab results Calcium 8.8 mg/dL (8.4-10.2) 01/01/19 06:45 Phosphorus 2.10 mg/dL (2.5-4.5) L 01/01/19 06:45 Magnesium 1.40 mg/dL (1.7-2.3) L 01/01/19 06:45 Medications & Allergies - Medications Allergies/Adverse Reactions: Allergies No Known Drug Allergies Allergy (Verified 06/11/18 12:07) Unknown Home Medications: Home Medications Medication Instructions Recorded Confirmed Last Taken Type Sodium Bicarbonate 650 mg FEEDTUBE QID 06/11/18 12/28/18 Unknown History Acetaminophen [Acetaminophen ORAL 20.3 ml FEEDTUBE Q6H PRN 08/21/18 12/28/18 Unknown History LIQ] Ascorbic Acid [Vitamin C] 5 ml FEEDTUBE Q12H 08/21/18 12/28/18 Unknown History Insulin Detemir [Levemir VIAL] 25 units SUB-Q QHS 08/21/18 12/28/18 Unknown History Metoprolol [Lopressor TAB] 100 mg FEEDTUBE Q12H 08/21/18 12/28/18 Unknown History Multivit-Minerals/Ferrous Gluc 5 ml FEEDTUBE DAILY@0600 08/21/18 12/28/18 Unknown History [Centrum Multivit-Mineral Liq] Potassium Chloride 15 ml FEEDTUBE DAILY@0600 08/21/18 12/28/18 Unknown History Zinc Sulfate 220 mg FEEDTUBE Q12H 08/21/18 12/28/18 Unknown History hydrALAZINE [Apresoline TAB] 10 mg FEEDTUBE Q8H 08/21/18 12/28/18 Unknown History levETIRAcetam [Keppra ORAL LIQ] 500 mg FEEDTUBE Q12H 08/21/18 12/28/18 Unknown History Acetaminophen [Acetaminophen ORAL 20.3 ml FEEDTUBE Q6H PRN 12/28/18 12/28/18 Unknown History LIQ] Calcium Acetate 10 ml FEEDTUBE TID 12/28/18 12/28/18 Unknown History Docusate Sodium 15 ml FEEDTUBE DAILY 12/28/18 12/28/18 Unknown History Famotidine [Pepcid] 20 mg PO Q12H 12/28/18 12/28/18 Unknown History Ferrous Sulfate [Ferrous Sulfate 5 ml FEEDTUBE BID 12/28/18 12/28/18 Unknown History 220 MG/5 ML] HYDROcodone/APAP 5-325 [[place] 1 each FEEDTUBE BID 12/28/18 12/28/18 Unknown History 5/325] Lipase/Protease/Amylase [[place] 1 each FEEDTUBE Q8H PRN 12/28/18 12/28/18 Unknown History 12,000 Units] Lispro Insulin [Humalog] See Protocol SUB-Q ACHS 12/28/18 12/28/18 Unknown History Sennosides [Senna Lax] 8.6 mg FEEDTUBE DAILY 12/28/18 12/28/18 Unknown History traMADol [Ultram] 50 mg FEEDTUBE BID PRN 12/28/18 12/28/18 Unknown History Active Medications: Generic Name Dose Route Start Last Admin Trade Name Freq PRN Reason Stop Dose Admin Lipase/Protease/Amylase 1 each 12/30/18 13:52 Pancreaze 10,500 Unit FEEDTUBE PRN PRN For Clogged Feeding Tube Dextrose 0 ml 12/31/18 19:02 D50w (25gm) Syringe IV PRN PRN Hypoglycemia Hydrophilic Ointment 1 applic 12/28/18 07:23 Vaseline Lip Therapy TP Q2HR PRN Dry Lips Piperacillin Sod/Tazobactam Sod 4.5 gm in 100 mls @ 200 mls/hr 12/29/18 12:00 01/01/19 04:11 Zosyn/Ns 4.5gm/100ml IV 200 mls/hr Q8H PATRICIO Administration Protocol Vasopressin 20 unit/ Sodium 101 mls @ 9.09 mls/hr 12/31/18 08:00 01/01/19 02:25 Chloride IV 0.03 units/min TITR PATRICIO 9.09 mls/hr Administration Protocol 0.03 UNITS/MIN Norepinephrine 8 mg/ Sodium 250 mls @ 3.75 mls/hr 12/31/18 08:00 01/01/19 01:01 Chloride IV 14 mcg/min TITR PATRICIO 26.25 mls/hr Titration Protocol 2 MCG/MIN Dextrose 1,000 mls @ 100 mls/hr 12/31/18 10:00 12/31/18 20:34 D5w IV Infused DIRECT PATRICIO Infusion Potassium Chloride 20 meq/ 1,010 mls @ 150 mls/hr 12/31/18 19:00 01/01/19 05:20 Dextrose IV 150 mls/hr DIRECT PATRICIO Administration Insulin Human Regular 100 100 mls @ 1 mls/hr 12/31/18 20:00 01/01/19 08:03 units/ Sodium Chloride IV 29 units/hr TITR PATRICIO 29 mls/hr Titration Protocol 1 UNITS/HR Multi-Ingred Cream/Lotion/Oil/Oint 1 applic 12/28/18 07:23 Artificial Tears Ophth Oint OU Q4HR PRN Dry Eye(s) Naloxone HCl 0.1 mg 12/28/18 11:28 Narcan 0.4 Mg/1 Ml IV Q2MIN PRN Res Rate </= 8 or 02 SAT < 92% Ondansetron HCl 4 mg 12/28/18 11:28 Zofran IV Q8H PRN Nausea And Vomiting Simple Syrup 15 ml 12/30/18 13:52 Simple Syrup FEEDTUBE PRN PRN Hypoglycemia Simple Syrup 30 ml 12/30/18 13:52 Simple Syrup FEEDTUBE PRN PRN Hypoglycemia Sodium Bicarbonate 325 mg 12/30/18 13:52 Sodium Bicarbonate FEEDTUBE PRN PRN For Clogged Feeding Tube Sodium Chloride 10 ml 12/28/18 22:00 12/31/18 21:15 Sodium Chloride Flush Syringe 10 Ml IV 10 ml BID PATRICIO Administration Sodium Chloride 10 ml 12/28/18 11:28 Sodium Chloride Flush Syringe 10 Ml IV PRN PRN LINE FLUSH
[2019-01-01] MEDS ORDERED: MAGNESIUM SULFATE IV ONE (10:00)
[2019-01-01] MEDS ORDERED: POTASSIUM CHLORIDE FEEDTUBE ONE (10:00)
[2019-01-01] MEDS ORDERED: KPHOS IV ONE (10:00)
[2019-01-01] MEDS ORDERED: NACL 0.9% IV ONE (10:00)
[2019-01-01] MEDS: SODIUM CHLORIDE FLUSH SYRINGE 10 ML IV SCH (10:42)
[2019-01-01 10:58] LABS: Anisocytosis 1+; Band Neutrophils # (Manual) 0.2 K/mm3; Basophils % (Manual) 0 % (0.0-1.8); Platelet Estimate Consistent w Auto; Total Cells Counted 100
[2019-01-01] MEDS ORDERED: HUMULIN R IV SCH (11:00)
[2019-01-01] MEDS ORDERED: NACL 0.9% IV SCH (11:00)
[2019-01-01] MEDS ORDERED: NACL 0.9% 500 ML 500 ML IV ONE (12:20)
--- NOTE | 2019-01-01 13:13 | Progress Note ---
Assessment and Plan Imp: 1. Pneumonia, ? aspiration 2. Sepsis 3. Acute respiratory failure, hypoxia 4. S/p CP arrest 5. Anoxic enceph; r/o brain 6. Hypernatremia Rec: 1. Zosyn vs. Proteus in sputum, and f/u 2nd GNR; treat for at least 5 days 2. Not weanable from ventilator due to mentation 3. Brain flow scan and repeat CT head has been ordered; neurology evaluation noted 4. Free water, hypotonic IVFs; monitor sodium; DI ruled out per renal 5. TFs as tolerated; diabetes management per primary 7. 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 Replete K, Mag, and Phos today; f/u levels 9. Poor prognosis No family present CCT 31 minutes Subjective Date of service: 01/01/19 Principal diagnosis: cardiac arrest Interval history: No events. Unresponsive on ACVC. No gag, cough, or corneal reflexes. Cannot give hx. On Levophed and Vasopressin via PICC, with Levophed dose turned up to 16mcg just now. Bolus of NS ordered by IMS. No bleeding per RN. Having high residuals per RN. Active Medications Lipase/Protease/Amylase (Pancreaze 10,500 Unit) 1 each FEEDTUBE PRN PRN PRN Reason: For Clogged Feeding Tube Dextrose (D50w (25gm) Syringe) 0 ml IV PRN PRN PRN Reason: Hypoglycemia Hydrophilic Ointment (Vaseline Lip Therapy) 1 applic TP Q2HR PRN PRN Reason: Dry Lips Piperacillin Sod/Tazobactam Sod (Zosyn/Ns 4.5gm/100ml) 4.5 gm in 100 mls @ 200 mls/hr IV Q8H PATRICIO; Protocol Last Admin: 01/01/19 04:11 Dose: 200 mls/hr Documented by: Vasopressin 20 unit/ Sodium (Chloride) 101 mls @ 9.09 mls/hr IV TITR PATRICIO; Protocol Last Admin: 01/01/19 02:25 Dose: 0.03 units/min, 9.09 mls/hr Documented by: Norepinephrine 8 mg/ Sodium (Chloride) 250 mls @ 3.75 mls/hr IV TITR PATRICIO; Protocol Last Titration: 01/01/19 12:32 Dose: 16 mcg/min, 30 mls/hr Documented by: Potassium Phosphate 40 mmol/Magnesium Sulfate 4 gm/ Sodium Chloride 521.3333 mls @ 85 mls/hr IV ONCE ONE Stop: 01/01/19 16:07 Last Admin: 01/01/19 10:41 Dose: 85 mls/hr Documented by: Potassium Chloride/Sodium Chloride (Ns 0.45/Kcl 20meq) 20 meq in 1,000 mls @ 125 mls/hr IV DIRECT PATRICIO Magnesium Sulfate 3 gm/ Sodium (Chloride) 106 mls @ 35.333 mls/hr IV ONCE ONE Stop: 01/01/19 15:19 Sodium Chloride (Nacl 0.9% 500 Ml) 500 mls @ 0 mls/hr IV ONCE ONE Stop: 01/01/19 12:21 Insulin Glargine (Lantus) 20 units SUB-Q QAMDIAB [facility] Insulin Human Lispro (Humalog) 0 unit SUB-Q Q6HR PATRICIO; Protocol Multi-Ingred Cream/Lotion/Oil/Oint (Artificial Tears Ophth Oint) 1 applic OU Q4HR PRN PRN Reason: Dry Eye(s) Naloxone HCl (Narcan 0.4 Mg/1 Ml) 0.1 mg IV Q2MIN PRN PRN Reason: Res Rate </= 8 or 02 SAT < 92% Ondansetron HCl (Zofran) 4 mg IV Q8H PRN PRN Reason: Nausea And Vomiting Simple Syrup (Simple Syrup) 15 ml FEEDTUBE PRN PRN PRN Reason: Hypoglycemia Simple Syrup (Simple Syrup) 30 ml FEEDTUBE PRN PRN PRN Reason: Hypoglycemia Sodium Bicarbonate (Sodium Bicarbonate) 325 mg FEEDTUBE PRN PRN PRN Reason: For Clogged Feeding Tube Sodium Chloride (Sodium Chloride Flush Syringe 10 Ml) 10 ml IV BID [facility] Last Admin: 01/01/19 10:42 Dose: 10 ml Documented by: Sodium Chloride (Sodium Chloride Flush Syringe 10 Ml) 10 ml IV PRN PRN PRN Reason: LINE FLUSH Objective Vital Signs - 12hr 01/01/19 01/01/19 01/01/19 01:15 01:30 01:45 Temperature Pulse Rate 81 80 81 Pulse Rate [ From Monitor] Respiratory 24 24 24 Rate Blood Pressure 97/54 100/54 101/57 O2 Sat by Pulse 95 95 Oximetry 01/01/19 01/01/19 01/01/19 02:00 02:15 02:30 Temperature Pulse Rate 81 81 82 Pulse Rate [ From Monitor] Respiratory 24 24 24 Rate Blood Pressure 98/56 94/53 101/57 O2 Sat by Pulse 96 95 96 Oximetry 01/01/19 01/01/19 01/01/19 02:45 03:00 03:15 Temperature Pulse Rate 81 79 79 Pulse Rate [ From Monitor] Respiratory 24 24 24 Rate Blood Pressure 105/63 102/56 105/58 O2 Sat by Pulse 96 97 96 Oximetry 01/01/19 01/01/19 01/01/19 03:26 03:30 03:45 Temperature 99.7 F H Pulse Rate 79 78 Pulse Rate [ From Monitor] Respiratory 24 24 Rate Blood Pressure 105/60 104/58 O2 Sat by Pulse 97 97 Oximetry 01/01/19 01/01/19 01/01/19 04:00 04:15 04:26 Temperature Pulse Rate 79 78 78 Pulse Rate [ 78 From Monitor] Respiratory 24 24 Rate Blood Pressure 103/56 105/58 105/58 O2 Sat by Pulse 97 97 98 Oximetry 01/01/19 01/01/19 01/01/19 04:30 04:45 05:00 Temperature Pulse Rate 78 78 77 Pulse Rate [ From Monitor] Respiratory 24 24 24 Rate Blood Pressure 105/58 103/55 103/55 O2 Sat by Pulse 96 95 97 Oximetry 01/01/19 01/01/19 01/01/19 05:15 05:30 05:45 Temperature Pulse Rate 76 75 76 Pulse Rate [ From Monitor] Respiratory 24 24 24 Rate Blood Pressure 112/61 114/63 111/61 O2 Sat by Pulse 96 96 97 Oximetry 01/01/19 01/01/19 01/01/19 06:00 06:15 06:30 Temperature Pulse Rate 75 75 74 Pulse Rate [ From Monitor] Respiratory 24 24 24 Rate Blood Pressure 115/64 114/63 116/63 O2 Sat by Pulse 98 97 97 Oximetry 01/01/19 01/01/19 01/01/19 06:45 07:00 07:15 Temperature Pulse Rate 73 73 73 Pulse Rate [ From Monitor] Respiratory 24 24 24 Rate Blood Pressure 120/68 117/63 114/62 O2 Sat by Pulse 97 97 96 Oximetry 01/01/19 01/01/19 01/01/19 07:30 07:45 07:48 Temperature 97.4 F L Pulse Rate 71 68 Pulse Rate [ From Monitor] Respiratory 24 24 Rate Blood Pressure 91/38 82/48 O2 Sat by Pulse 99 98 Oximetry 01/01/19 01/01/19 01/01/19 08:00 08:15 08:30 Temperature 97.4 F L Pulse Rate 74 74 72 Pulse Rate [ From Monitor] Respiratory 24 24 24 Rate Blood Pressure 141/73 123/63 117/65 O2 Sat by Pulse 96 95 97 Oximetry 01/01/19 01/01/19 01/01/19 08:45 09:00 09:15 Temperature Pulse Rate 73 69 69 Pulse Rate [ From Monitor] Respiratory 24 24 24 Rate Blood Pressure 101/61 114/64 113/60 O2 Sat by Pulse 94 96 96 Oximetry 01/01/19 01/01/19 01/01/19 09:30 09:45 10:00 Temperature Pulse Rate 70 69 71 Pulse Rate [ From Monitor] Respiratory 24 24 24 Rate Blood Pressure 113/61 115/61 116/63 O2 Sat by Pulse 97 96 98 Oximetry 01/01/19 01/01/19 01/01/19 10:15 10:30 10:45 Temperature Pulse Rate 72 77 71 Pulse Rate [ From Monitor] Respiratory 24 24 24 Rate Blood Pressure 111/64 121/67 111/66 O2 Sat by Pulse 98 96 98 Oximetry 01/01/19 01/01/19 01/01/19 11:00 11:15 11:30 Temperature Pulse Rate 69 70 71 Pulse Rate [ From Monitor] Respiratory 24 24 24 Rate Blood Pressure 98/58 100/60 103/60 O2 Sat by Pulse 97 96 95 Oximetry 01/01/19 01/01/19 01/01/19 11:45 11:49 12:00 Temperature 97.3 F L 97.3 F L Pulse Rate 72 Pulse Rate [ From Monitor] Respiratory 24 Rate Blood Pressure 106/62 O2 Sat by Pulse 96 Oximetry Constitutional: comatose, other (critically ill) Eyes: non-icteric ENT: other (orally intubated) Effort: normal Ascultation: Bilateral: other (coarse BS bilaterally) Cardiovascular: regular rate and rhythm (no mrg) Gastrointestinal: normoactive bowel sounds, soft, non-tender, non-distended Integumentary: other (stage IV sacral decub per staff therapist) Extremities: other (no c/c; s/p R AKA; no edema) Neurologic: other (unresponsive, flaccid extremities, no reflexes per above) Psychiatric: other (unable to assess) CBC and BMP: 01/01/19 06:45 01/01/19 06:45 ABG, PT/INR, D-dimer: ABG POC ABG pH 7.324 (7.35-7.45) L 01/01/19 04:29 POC ABG pCO2 35.7 (35-45) 01/01/19 04:29 POC ABG pO2 96 (80-105) 01/01/19 04:29 POC ABG HCO3 18.6 (22-26 mml/L) 01/01/19 04:29 POC ABG Total CO2 20 (23-27mmol/L) 01/01/19 04:29 POC ABG O2 Sat 97 01/01/19 04:29 PT/INR, D-dimer PT 17.1 Sec. (12.2-14.9) H 12/28/18 07:20 INR 1.31 (0.87-1.13) H 12/28/18 07:20 Abnormal lab findings: Abnormal Labs 12/28/18 12/28/18 12/28/18 06:56 07:20 07:20 WBC 19.1 H RBC 2.42 L Hgb 6.2 L Hct 23.5 L MCV 97 H MCH 26 L MCHC 27 L RDW 20.5 H Plt Count 507 H Seg Neuts % (Manual) 79.0 H Lymphocytes % (Manual) Nucleated RBC % 1.0 H Seg Neutrophils # Man 15.1 H Lymphocytes # (Manual) PT INR APTT POC ABG pH POC ABG pCO2 POC ABG pO2 VBG pH Sodium 160 H Potassium 5.6 H Chloride 108.5 H Carbon Dioxide 21 L BUN 67 H Creatinine Glucose 457 H POC Glucose 357 H Lactic Acid Calcium > 13.0 H* Phosphorus Magnesium AST 325 H ALT 190 H Alkaline Phosphatase 132 H Total Creatine Kinase 213 H Troponin T 0.568 H* Total Protein Albumin 2.8 L LDL Cholesterol Direct 49 L HDL Cholesterol 27 L Urine pH Urine WBC (Auto) Crossmatch 12/28/18 12/28/18 12/28/18 07:20 07:20 07:20 WBC RBC Hgb Hct MCV MCH MCHC RDW Plt Count Seg Neuts % (Manual) Lymphocytes % (Manual) Nucleated RBC % Seg Neutrophils # Man Lymphocytes # (Manual) PT 17.1 H INR 1.31 H APTT POC ABG pH POC ABG pCO2 POC ABG pO2 VBG pH 7.149 L* Sodium Potassium Chloride Carbon Dioxide BUN Creatinine Glucose POC Glucose Lactic Acid 15.40 H* Calcium Phosphorus Magnesium AST ALT Alkaline Phosphatase Total Creatine Kinase Troponin T Total Protein Albumin LDL Cholesterol Direct HDL Cholesterol Urine pH Urine WBC (Auto) Crossmatch 12/28/18 12/28/18 12/28/18 07:20 07:40 08:02 WBC RBC Hgb Hct MCV MCH MCHC RDW Plt Count Seg Neuts % (Manual) Lymphocytes % (Manual) Nucleated RBC % Seg Neutrophils # Man Lymphocytes # (Manual) PT INR APTT POC ABG pH POC ABG pCO2 POC ABG pO2 VBG pH Sodium Potassium Chloride Carbon Dioxide BUN Creatinine Glucose POC Glucose Lactic Acid Calcium Phosphorus 9.80 H Magnesium 3.50 H AST ALT Alkaline Phosphatase Total Creatine Kinase Troponin T Total Protein Albumin LDL Cholesterol Direct HDL Cholesterol Urine pH 8.0 H Urine WBC (Auto) 59.0 H Crossmatch See Detail 12/28/18 12/28/18 12/28/18 08:03 10:02 10:10 WBC RBC Hgb Hct MCV MCH MCHC RDW Plt Count Seg Neuts % (Manual) Lymphocytes % (Manual) Nucleated RBC % Seg Neutrophils # Man Lymphocytes # (Manual) PT INR APTT POC ABG pH 7.170 L POC ABG pCO2 60.4 H 45.3 H POC ABG pO2 135 H VBG pH Sodium Potassium Chloride Carbon Dioxide BUN Creatinine Glucose POC Glucose 288 H Lactic Acid Calcium Phosphorus Magnesium AST ALT Alkaline Phosphatase Total Creatine Kinase Troponin T Total Protein Albumin LDL Cholesterol Direct HDL Cholesterol Urine pH Urine WBC (Auto) Crossmatch 12/28/18 12/28/18 12/28/18 11:14 12:34 14:05 WBC RBC Hgb Hct MCV MCH MCHC RDW Plt Count Seg Neuts % (Manual) Lymphocytes % (Manual) Nucleated RBC % Seg Neutrophils # Man Lymphocytes # (Manual) PT INR APTT POC ABG pH POC ABG pCO2 POC ABG pO2 VBG pH Sodium Potassium Chloride Carbon Dioxide BUN Creatinine Glucose POC Glucose 268 H 255 H 285 H Lactic Acid Calcium Phosphorus Magnesium AST ALT Alkaline Phosphatase Total Creatine Kinase Troponin T Total Protein Albumin LDL Cholesterol Direct HDL Cholesterol Urine pH Urine WBC (Auto) Crossmatch 12/28/18 12/28/18 12/28/18 15:13 16:36 16:45 WBC RBC Hgb Hct MCV MCH MCHC RDW Plt Count Seg Neuts % (Manual) Lymphocytes % (Manual) Nucleated RBC % Seg Neutrophils # Man Lymphocytes # (Manual) PT INR APTT POC ABG pH POC ABG pCO2 POC ABG pO2 VBG pH Sodium 159 H Potassium 3.2 L D Chloride 115.2 H Carbon Dioxide 31 H D BUN 51 H Creatinine 0.7 L Glucose 159 H POC Glucose 214 H 168 H Lactic Acid Calcium 10.3 H D Phosphorus Magnesium AST ALT Alkaline Phosphatase Total Creatine Kinase Troponin T Total Protein Albumin LDL Cholesterol Direct HDL Cholesterol Urine pH Urine WBC (Auto) Crossmatch 12/28/18 12/28/18 12/28/18 19:09 19:09 21:45 WBC RBC Hgb Hct MCV MCH MCHC RDW Plt Count Seg Neuts % (Manual) Lymphocytes % (Manual) Nucleated RBC % Seg Neutrophils # Man Lymphocytes # (Manual) PT INR APTT POC ABG pH POC ABG pCO2 POC ABG pO2 VBG pH Sodium 159 H 159 H Potassium 3.3 L Chloride 115.9 H 115.0 H Carbon Dioxide BUN 44 H 41 H Creatinine 0.7 L 0.6 L Glucose POC Glucose Lactic Acid Calcium Phosphorus Magnesium AST ALT Alkaline Phosphatase Total Creatine Kinase Troponin T 0.161 H* D Total Protein Albumin LDL Cholesterol Direct HDL Cholesterol Urine pH Urine WBC (Auto) Crossmatch 12/28/18 12/28/18 12/28/18 22:20 22:20 23:11 WBC RBC Hgb Hct MCV MCH MCHC RDW Plt Count Seg Neuts % (Manual) Lymphocytes % (Manual) Nucleated RBC % Seg Neutrophils # Man Lymphocytes # (Manual) PT INR APTT POC ABG pH POC ABG pCO2 POC ABG pO2 VBG pH Sodium 157 H Potassium 3.0 L D Chloride 114.3 H Carbon Dioxide BUN 39 H Creatinine 0.5 L Glucose 74 L POC Glucose 68 L Lactic Acid Calcium Phosphorus Magnesium AST ALT Alkaline Phosphatase Total Creatine Kinase Troponin T 0.143 H* Total Protein Albumin LDL Cholesterol Direct HDL Cholesterol Urine pH Urine WBC (Auto) Crossmatch 12/29/18 12/29/18 12/29/18 00:05 00:11 00:56 WBC RBC Hgb 9.3 L D Hct 29.7 L D MCV MCH MCHC RDW Plt Count Seg Neuts % (Manual) Lymphocytes % (Manual) Nucleated RBC % Seg Neutrophils # Man Lymphocytes # (Manual) PT INR APTT POC ABG pH POC ABG pCO2 POC ABG pO2 VBG pH Sodium 154 H Potassium 2.6 L* Chloride 110.7 H Carbon Dioxide BUN 34 H Creatinine 0.5 L Glucose 156 H POC Glucose 155 H Lactic Acid Calcium Phosphorus Magnesium AST ALT Alkaline Phosphatase Total Creatine Kinase Troponin T Total Protein Albumin LDL Cholesterol Direct HDL Cholesterol Urine pH Urine WBC (Auto) Crossmatch 12/29/18 12/29/18 12/29/18 03:03 03:25 05:13 WBC RBC Hgb Hct MCV MCH MCHC RDW Plt Count Seg Neuts % (Manual) Lymphocytes % (Manual) Nucleated RBC % Seg Neutrophils # Man Lymphocytes # (Manual) PT INR APTT POC ABG pH 7.490 H POC ABG pCO2 34.5 L POC ABG pO2 78 L VBG pH Sodium Potassium Chloride Carbon Dioxide BUN Creatinine Glucose POC Glucose 182 H Lactic Acid Calcium Phosphorus Magnesium 1.60 L AST ALT Alkaline Phosphatase Total Creatine Kinase Troponin T Total Protein Albumin LDL Cholesterol Direct HDL Cholesterol Urine pH Urine WBC (Auto) Crossmatch 12/29/18 12/29/18 12/29/18 08:00 08:27 09:44 WBC RBC Hgb Hct MCV MCH MCHC RDW Plt Count Seg Neuts % (Manual) Lymphocytes % (Manual) Nucleated RBC % Seg Neutrophils # Man Lymphocytes # (Manual) PT INR APTT POC ABG pH POC ABG pCO2 POC ABG pO2 VBG pH Sodium 146 H D Potassium 3.1 L Chloride 107.1 H Carbon Dioxide BUN 21 H Creatinine 0.4 L Glucose 303 H POC Glucose 278 H 309 H Lactic Acid Calcium Phosphorus Magnesium AST ALT Alkaline Phosphatase Total Creatine Kinase Troponin T Total Protein Albumin LDL Cholesterol Direct HDL Cholesterol Urine pH Urine WBC (Auto) Crossmatch 12/29/18 12/29/18 12/29/18 11:39 11:39 11:39 WBC RBC 3.53 L Hgb 9.3 L Hct 29.8 L MCV MCH 26 L MCHC 31 L RDW 18.3 H Plt Count Seg Neuts % (Manual) Lymphocytes % (Manual) 5.0 L Nucleated RBC % 1.0 H Seg Neutrophils # Man Lymphocytes # (Manual) 0.5 L PT INR APTT 38.7 H POC ABG pH POC ABG pCO2 POC ABG pO2 VBG pH Sodium Potassium Chloride Carbon Dioxide BUN Creatinine Glucose POC Glucose Lactic Acid 2.60 H* Calcium Phosphorus Magnesium AST ALT Alkaline Phosphatase Total Creatine Kinase Troponin T Total Protein Albumin LDL Cholesterol Direct HDL Cholesterol Urine pH Urine WBC (Auto) Crossmatch 12/29/18 12/29/18 12/29/18 11:39 12:09 13:23 WBC RBC Hgb Hct MCV MCH MCHC RDW Plt Count Seg Neuts % (Manual) Lymphocytes % (Manual) Nucleated RBC % Seg Neutrophils # Man Lymphocytes # (Manual) PT INR APTT POC ABG pH POC ABG pCO2 POC ABG pO2 VBG pH Sodium Potassium 3.3 L Chloride Carbon Dioxide BUN Creatinine 0.4 L Glucose 333 H POC Glucose 321 H Lactic Acid 2.80 H* Calcium Phosphorus Magnesium AST 197 H ALT 177 H Alkaline Phosphatase Total Creatine Kinase Troponin T Total Protein Albumin 2.4 L LDL Cholesterol Direct HDL Cholesterol Urine pH Urine WBC (Auto) Crossmatch 12/29/18 12/29/18 12/29/18 15:22 15:37 17:54 WBC RBC Hgb Hct MCV MCH MCHC RDW Plt Count Seg Neuts % (Manual) Lymphocytes % (Manual) Nucleated RBC % Seg Neutrophils # Man Lymphocytes # (Manual) PT INR APTT POC ABG pH POC ABG pCO2 POC ABG pO2 VBG pH Sodium Potassium Chloride Carbon Dioxide BUN Creatinine Glucose POC Glucose 373 H 209 H Lactic Acid 3.50 H* Calcium Phosphorus Magnesium AST ALT Alkaline Phosphatase Total Creatine Kinase Troponin T Total Protein Albumin LDL Cholesterol Direct HDL Cholesterol Urine pH Urine WBC (Auto) Crossmatch 12/29/18 12/29/18 12/30/18 21:13 23:05 05:34 WBC RBC Hgb Hct MCV MCH MCHC RDW Plt Count Seg Neuts % (Manual) Lymphocytes % (Manual) Nucleated RBC % Seg Neutrophils # Man Lymphocytes # (Manual) PT INR APTT POC ABG pH 7.327 L POC ABG pCO2 POC ABG pO2 VBG pH Sodium Potassium Chloride Carbon Dioxide BUN Creatinine Glucose POC Glucose Lactic Acid 3.90 H* 2.20 H* Calcium Phosphorus Magnesium AST ALT Alkaline Phosphatase Total Creatine Kinase Troponin T Total Protein Albumin LDL Cholesterol Direct HDL Cholesterol Urine pH Urine WBC (Auto) Crossmatch 12/30/18 12/30/18 12/30/18 07:58 08:54 08:54 WBC 17.3 H RBC 2.61 L Hgb 7.0 L Hct 22.6 L D MCV MCH 27 L MCHC 31 L RDW 18.6 H Plt Count Seg Neuts % (Manual) Lymphocytes % (Manual) Nucleated RBC % Seg Neutrophils # Man Lymphocytes # (Manual) PT INR APTT POC ABG pH POC ABG pCO2 POC ABG pO2 VBG pH Sodium 160 H D Potassium 3.3 L Chloride 132.7 H Carbon Dioxide 15 L D BUN Creatinine 0.7 L D Glucose 116 H POC Glucose 116 H Lactic Acid Calcium Phosphorus 2.00 L Magnesium AST ALT Alkaline Phosphatase Total Creatine Kinase Troponin T Total Protein Albumin LDL Cholesterol Direct HDL Cholesterol Urine pH Urine WBC (Auto) Crossmatch 12/30/18 12/30/18 12/30/18 12:11 18:19 21:23 WBC RBC Hgb Hct MCV MCH MCHC RDW Plt Count Seg Neuts % (Manual) Lymphocytes % (Manual) Nucleated RBC % Seg Neutrophils # Man Lymphocytes # (Manual) PT INR APTT POC ABG pH POC ABG pCO2 POC ABG pO2 VBG pH Sodium Potassium Chloride Carbon Dioxide BUN Creatinine Glucose POC Glucose 168 H 211 H 224 H Lactic Acid Calcium Phosphorus Magnesium AST ALT Alkaline Phosphatase Total Creatine Kinase Troponin T Total Protein Albumin LDL Cholesterol Direct HDL Cholesterol Urine pH Urine WBC (Auto) Crossmatch 12/30/18 12/31/18 12/31/18 23:46 03:48 05:21 WBC RBC Hgb Hct MCV MCH MCHC RDW Plt Count Seg Neuts % (Manual) Lymphocytes % (Manual) Nucleated RBC % Seg Neutrophils # Man Lymphocytes # (Manual) PT INR APTT POC ABG pH 7.191 L POC ABG pCO2 33.9 L POC ABG pO2 VBG pH Sodium Potassium Chloride Carbon Dioxide BUN Creatinine Glucose POC Glucose 221 H 226 H Lactic Acid Calcium Phosphorus Magnesium AST ALT Alkaline Phosphatase Total Creatine Kinase Troponin T Total Protein Albumin LDL Cholesterol Direct HDL Cholesterol Urine pH Urine WBC (Auto) Crossmatch 12/31/18 12/31/18 12/31/18 06:05 08:45 09:13 WBC RBC Hgb Hct MCV MCH MCHC RDW Plt Count Seg Neuts % (Manual) Lymphocytes % (Manual) Nucleated RBC % Seg Neutrophils # Man Lymphocytes # (Manual) PT INR APTT POC ABG pH POC ABG pCO2 POC ABG pO2 VBG pH Sodium 170 H* D Potassium 2.9 L* Chloride 138.6 H Carbon Dioxide 13 L BUN Creatinine Glucose 244 H POC Glucose 246 H 289 H Lactic Acid Calcium Phosphorus Magnesium AST 50 H ALT 93 H Alkaline Phosphatase 136 H Total Creatine Kinase Troponin T Total Protein Albumin 1.9 L LDL Cholesterol Direct HDL Cholesterol Urine pH Urine WBC (Auto) Crossmatch 12/31/18 12/31/18 12/31/18 09:43 11:07 14:52 WBC 18.9 H RBC 2.98 L Hgb 7.8 L Hct 26.8 L MCV MCH 26 L MCHC 29 L RDW 20.4 H Plt Count Seg Neuts % (Manual) Lymphocytes % (Manual) Nucleated RBC % Seg Neutrophils # Man Lymphocytes # (Manual) PT INR APTT POC ABG pH POC ABG pCO2 POC ABG pO2 VBG pH Sodium Potassium Chloride Carbon Dioxide BUN Creatinine Glucose POC Glucose 286 H 352 H Lactic Acid Calcium Phosphorus Magnesium AST ALT Alkaline Phosphatase Total Creatine Kinase Troponin T Total Protein Albumin LDL Cholesterol Direct HDL Cholesterol Urine pH Urine WBC (Auto) Crossmatch 12/31/18 12/31/18 12/31/18 17:21 17:56 18:13 WBC RBC Hgb Hct MCV MCH MCHC RDW Plt Count Seg Neuts % (Manual) Lymphocytes % (Manual) Nucleated RBC % Seg Neutrophils # Man Lymphocytes # (Manual) PT INR APTT POC ABG pH POC ABG pCO2 POC ABG pO2 VBG pH Sodium 163 H* Potassium 3.1 L Chloride 126.0 H Carbon Dioxide 20 L D BUN Creatinine 0.7 L Glucose 373 H POC Glucose 373 H Lactic Acid Calcium Phosphorus Magnesium AST ALT Alkaline Phosphatase Total Creatine Kinase Troponin T Total Protein Albumin LDL Cholesterol Direct HDL Cholesterol Urine pH Urine WBC (Auto) 63.0 H Crossmatch 12/31/18 12/31/18 12/31/18 19:57 20:57 22:08 WBC RBC Hgb Hct MCV MCH MCHC RDW Plt Count Seg Neuts % (Manual) Lymphocytes % (Manual) Nucleated RBC % Seg Neutrophils # Man Lymphocytes # (Manual) PT INR APTT POC ABG pH POC ABG pCO2 POC ABG pO2 VBG pH Sodium Potassium Chloride Carbon Dioxide BUN Creatinine Glucose POC Glucose 479 H 274 H 433 H Lactic Acid Calcium Phosphorus Magnesium AST ALT Alkaline Phosphatase Total Creatine Kinase Troponin T Total Protein Albumin LDL Cholesterol Direct HDL Cholesterol Urine pH Urine WBC (Auto) Crossmatch 12/31/18 12/31/18 01/01/19 23:03 23:32 00:03 WBC RBC Hgb Hct MCV MCH MCHC RDW Plt Count Seg Neuts % (Manual) Lymphocytes % (Manual) Nucleated RBC % Seg Neutrophils # Man Lymphocytes # (Manual) PT INR APTT POC ABG pH POC ABG pCO2 POC ABG pO2 VBG pH Sodium Potassium Chloride Carbon Dioxide BUN Creatinine Glucose POC Glucose 418 H 427 H 429 H Lactic Acid Calcium Phosphorus Magnesium AST ALT Alkaline Phosphatase Total Creatine Kinase Troponin T Total Protein Albumin LDL Cholesterol Direct HDL Cholesterol Urine pH Urine WBC (Auto) Crossmatch 01/01/19 01/01/19 01/01/19 00:55 01:58 03:10 WBC RBC Hgb Hct MCV MCH MCHC RDW Plt Count Seg Neuts % (Manual) Lymphocytes % (Manual) Nucleated RBC % Seg Neutrophils # Man Lymphocytes # (Manual) PT INR APTT POC ABG pH POC ABG pCO2 POC ABG pO2 VBG pH Sodium Potassium Chloride Carbon Dioxide BUN Creatinine Glucose POC Glucose 417 H 347 H 381 H Lactic Acid Calcium Phosphorus Magnesium AST ALT Alkaline Phosphatase Total Creatine Kinase Troponin T Total Protein Albumin LDL Cholesterol Direct HDL Cholesterol Urine pH Urine WBC (Auto) Crossmatch 01/01/19 01/01/19 01/01/19 04:13 04:29 05:09 WBC RBC Hgb Hct MCV MCH MCHC RDW Plt Count Seg Neuts % (Manual) Lymphocytes % (Manual) Nucleated RBC % Seg Neutrophils # Man Lymphocytes # (Manual) PT INR APTT POC ABG pH 7.324 L POC ABG pCO2 POC ABG pO2 VBG pH Sodium Potassium Chloride Carbon Dioxide BUN Creatinine Glucose POC Glucose 356 H 391 H Lactic Acid Calcium Phosphorus Magnesium AST ALT Alkaline Phosphatase Total Creatine Kinase Troponin T Total Protein Albumin LDL Cholesterol Direct HDL Cholesterol Urine pH Urine WBC (Auto) Crossmatch 01/01/19 01/01/19 01/01/19 05:31 06:43 06:45 WBC RBC Hgb Hct MCV MCH MCHC RDW Plt Count Seg Neuts % (Manual) Lymphocytes % (Manual) Nucleated RBC % Seg Neutrophils # Man Lymphocytes # (Manual) PT INR APTT POC ABG pH POC ABG pCO2 POC ABG pO2 VBG pH Sodium 152 H D Potassium 3.1 L Chloride 120.2 H Carbon Dioxide 20 L BUN Creatinine Glucose 371 H POC Glucose 426 H 341 H Lactic Acid Calcium Phosphorus 2.10 L Magnesium 1.40 L AST ALT 61 H Alkaline Phosphatase 140 H Total Creatine Kinase Troponin T Total Protein 6.1 L Albumin 1.7 L LDL Cholesterol Direct HDL Cholesterol Urine pH Urine WBC (Auto) Crossmatch 01/01/19 01/01/19 01/01/19 06:45 06:45 08:02 WBC RBC 2.41 L Hgb 6.4 L Hct 20.9 L MCV MCH 26 L MCHC 31 L RDW 19.5 H Plt Count Seg Neuts % (Manual) 81.0 H Lymphocytes % (Manual) 13.0 L Nucleated RBC % Seg Neutrophils # Man 8.5 H Lymphocytes # (Manual) PT INR APTT POC ABG pH POC ABG pCO2 POC ABG pO2 VBG pH Sodium Potassium Chloride Carbon Dioxide BUN Creatinine Glucose POC Glucose 347 H Lactic Acid 3.10 H* Calcium Phosphorus Magnesium AST ALT Alkaline Phosphatase Total Creatine Kinase Troponin T Total Protein Albumin LDL Cholesterol Direct HDL Cholesterol Urine pH Urine WBC (Auto) Crossmatch 01/01/19 01/01/19 08:59 11:25 WBC RBC Hgb Hct MCV MCH MCHC RDW Plt Count Seg Neuts % (Manual) Lymphocytes % (Manual) Nucleated RBC % Seg Neutrophils # Man Lymphocytes # (Manual) PT INR APTT POC ABG pH POC ABG pCO2 POC ABG pO2 VBG pH Sodium Potassium Chloride Carbon Dioxide BUN Creatinine Glucose POC Glucose 318 H 361 H Lactic Acid Calcium Phosphorus Magnesium AST ALT Alkaline Phosphatase Total Creatine Kinase Troponin T Total Protein Albumin LDL Cholesterol Direct HDL Cholesterol Urine pH Urine WBC (Auto) Crossmatch Chest x-ray: report reviewed, image reviewed (no change)
--- NOTE | 2019-01-01 13:55 | Cat Scan Report ---
CT HEAD WITHOUT CONTRAST: HISTORY: Altered mental status, patient found unresponsive. TECHNIQUE: Sequential 2.5mm CT images. COMPARISON: none. FINDINGS: Cerebral Parenchyma: Diffuse cerebral edema is demonstrated. There is loss of the normal heart-white interface. Diffuse sulcal effacement. Cerebellum: Diffuse edema. Brainstem: Diffuse edema. Ventricles: Compressed secondary to the diffuse edema. Sella: Normal. Extra-axial spaces: Normal. Basal Cisterns: Effaced. Intracranial Hemorrhage: None. Midline Shift: None. Calvarium: Intact. Left frontal craniectomy changes are noted, correlate with history. Sinuses: Mild mucosal thickening is noted throughout all paranasal sinuses. Mastoid Air Cells: Normal. Visualized Orbits: Normal. IMPRESSION: There is marked and diffuse cerebral edema consistent with diffuse anoxic injury.
--- NOTE | 2019-01-01 13:59 | Nuclear Medicine Report ---
NUCLEAR MEDICINE BRAIN FLOW History: Altered mental status, lack of brainstem reflexes. Technique: 20 mCi of technetium 99m pertechnetate was infused. Anterior views of the head and neck were obtained for 120 seconds. Findings: CT brain without contrast performed the same day was also reviewed which demonstrated diffuse cerebral edema. Nuclear medicine brain flow study demonstrates no evidence for intracranial blood flow. Flow to the common carotid arteries and external carotid arteries is noted. Impression: No evidence for intracranial blood flow on nuclear medicine brain scan.
[2019-01-01] MEDS ORDERED: LANTUS SUB-Q SCH (14:00)
[2019-01-01] MEDS ORDERED: NS 0.45/KCL 20MEQ 20 MEQ/1,000 ML BAG IV SCH (14:00)
[2019-01-01] MEDS ORDERED: PEPCID PO SCH (14:00)
[2019-01-01] MEDS ORDERED: HumaLOG SUB-Q SCH (14:00)
--- NOTE | 2019-01-01 14:31 | Death Note ---
Note Date of : 01/01/19 Time of : 14:30 Time Pronounced: 14:30 - Preliminary Cause of (problem) (1) Brain Preliminary cause of
--- NOTE | 2019-01-01 14:45 | Progress Note ---
Assessment and Plan Assessment and plan: Patient is a 53 yo man from [facility] with history of chronic respiratory failure due to end stage COPD on prn O2, significant debility, G-tube placement, chronic iron deficiency anemia, hypertension, seizures, stage IV sacral ulcer and osteomyelitis of the sacral region, IDDM and PAD with right above knee amputation, nonverbal and status post PEG tube, who presented to the ED in cardiopulmonary arrest. According to the chart, he suffered an out of the hospital cardiac arrest. At the [facility] was hyperglycemic and deteriorated to shortness of breath followed by bradycardia and pulselessness in route to the hospital. Patient gives no history because he is intubated, patient not responsive on vent without sedation, multiple pressors. No family present. long-term records shows he is Full code. Cardiopulmonary resuscitation was performed, patient was intubated, and placed on levophed and vasopressin. He is found to be acidotic , hypercapnic, hyperglycemic and anemic. He was further treated with 2 units of PRBC and insulin gtt. Please note at baseline patient is nonverbal. -The patient was maintained on a mechanical ventilator throughout his hospital stay, continue ventilator -He has been on insulin drip per DKA protocol -He was treated with bicarbonate drip for acidosis, combined acidosis -The patient is suffering multiorgan failure, heart failure, shock liver The patient suffered anemia requiring blood transfusion -The patient was treated empirically with antibiotics -Has been explained to the patient sister and I have a very poor prognosis, the family wants to continue full code, and continue aggressive therapy -His electrolytes were repleted, his free water deficit was being corrected with IV fluids and water via G-tube -Discussed with neurologist, the patient will need brain flow scan and CT head today, to determine if he is brain or not. Acute on chronic respiratory failure: CardioPulmonary arrest DKA: Acute combined acidosis: Multisystem organ failure, Anemia, acute on chronic anemia Sepsis Pneumonia, gram-negative bacteria, Pseudomonas Sacral osteomyelitis UTI Distributive shock mulitiple large deep Decubitus ulcers to right shoulder, right buttock, right ischium, sacrum, lateral aspect of left leg, left heel, present on admission Hyponatremia Hypokalemia Hypophosphatemia Hypomagnesemia Anemia of chronic disease CCT 34 minutes - Patient Problems (1) Brain Status: Acute History Interval history: Patient continues to have fevers, he has no brainstem reflexes, nonresponsive, No vomiting, no seizures Hospitalist Physical - Physical exam Narrative exam: General.: Appears chronically ill HEENT: Moist mucous membranes Neck: supple Cardiac: S1-S2 heard Lungs: ventilated breath sounds Abdomen: soft , nondistended Extremities: no edema clubbing or cyanosis Skin: mulitiple large deep Decubitus ulcers to right shoulder, right buttock, right ischium, sacrum, lateral aspect of left leg, left heel, malodorous Neurologic: No brainstem reflexes, - Constitutional Vitals: Temp Pulse Resp BP Pulse Ox 97.3 F L 75 24 106/62 99 01/01/19 12:00 01/01/19 13:50 01/01/19 11:45 01/01/19 11:45 01/01/19 13:50 General appearance: Absent: mild distress Results - Labs CBC & Chem 7: 01/01/19 06:45 01/01/19 13:00 Labs: Laboratory Last Values WBC 10.5 K/mm3 (4.5-11.0) 01/01/19 06:45 RBC 2.41 M/mm3 (3.65-5.03) L 01/01/19 06:45 Hgb 6.4 gm/dl (11.8-15.2) L 01/01/19 06:45 Hct 20.9 % (35.5-45.6) L 01/01/19 06:45 MCV 87 fl (84-94) 01/01/19 06:45 MCH 26 pg (28-32) L 01/01/19 06:45 MCHC 31 % (32-34) L 01/01/19 06:45 RDW 19.5 % (13.2-15.2) H 01/01/19 06:45 Plt Count 163 K/mm3 (140-440) 01/01/19 06:45 Lymph % (Auto) In Home Sales Consultant 12/28/18 07:20 Vilas % (Auto) In Home Sales Consultant 12/28/18 07:20 Eos % (Auto) In Home Sales Consultant 12/28/18 07:20 Baso % (Auto) In Home Sales Consultant 12/28/18 07:20 Lymph # In Home Sales Consultant 12/28/18 07:20 Vil[place] # In Home Sales Consultant 12/28/18 07:20 Eos # In Home Sales Consultant 12/28/18 07:20 Baso # In Home Sales Consultant 12/28/18 07:20 Add Manual Diff Complete 01/01/19 06:45 Total Counted 100 01/01/19 06:45 Seg Neutrophils % In Home Sales Consultant 12/28/18 07:20 Seg Neuts % (Manual) 81.0 % (40.0-70.0) H 01/01/19 06:45 Band Neutrophils % 2.0 % 01/01/19 06:45 Lymphocytes % (Manual) 13.0 % (13.4-35.0) L 01/01/19 06:45 Reactive Lymphs % (Man) 0 % 01/01/19 06:45 Monocytes % (Manual) 3.0 % (0.0-7.3) 01/01/19 06:45 Eosinophils % (Manual) 1.0 % (0.0-4.3) 01/01/19 06:45 Basophils % (Manual) 0 % (0.0-1.8) 01/01/19 06:45 Metamyelocytes % 0 % 01/01/19 06:45 Myelocytes % 0 % 01/01/19 06:45 Promyelocytes % 0 % 01/01/19 06:45 Blast Cells % 0 % 01/01/19 06:45 Nucleated RBC % Not Reportable 01/01/19 06:45 Seg Neutrophils # In Home Sales Consultant 12/28/18 07:20 Seg Neutrophils # Man 8.5 K/mm3 (1.8-7.7) H 01/01/19 06:45 Band Neutrophils # 0.2 K/mm3 01/01/19 06:45 Lymphocytes # (Manual) 1.4 K/mm3 (1.2-5.4) 01/01/19 06:45 Abs React Lymphs (Man) 0.0 K/mm3 01/01/19 06:45 Monocytes # (Manual) 0.3 K/mm3 (0.0-0.8) 01/01/19 06:45 Eosinophils # (Manual) 0.1 K/mm3 (0.0-0.4) 01/01/19 06:45 Basophils # (Manual) 0.0 K/mm3 (0.0-0.1) 01/01/19 06:45 Metamyelocytes # 0.0 K/mm3 01/01/19 06:45 Myelocytes # 0.0 K/mm3 01/01/19 06:45 Promyelocytes # 0.0 K/mm3 01/01/19 06:45 Blast Cells # 0.0 K/mm3 01/01/19 06:45 WBC Morphology Not Reportable 01/01/19 06:45 Hypersegmented Neuts Not Reportable 01/01/19 06:45 Hyposegmented Neuts Not Reportable 01/01/19 06:45 Hypogranular Neuts Not Reportable 01/01/19 06:45 Smudge Cells Not Reportable 01/01/19 06:45 Toxic Granulation Not Reportable 01/01/19 06:45 Toxic Vacuolation Not Reportable 01/01/19 06:45 Dohle Bodies Not Reportable 01/01/19 06:45 Pelger-Huet Anomaly Not Reportable 01/01/19 06:45 Fritz Rods Not Reportable 01/01/19 06:45 Platelet Estimate Consistent w auto 01/01/19 06:45 Clumped Platelets Not Reportable 01/01/19 06:45 Plt Clumps, EDTA Not Reportable 01/01/19 06:45 Large Platelets Not Reportable 01/01/19 06:45 Giant Platelets Not Reportable 01/01/19 06:45 Platelet Satelliting Not Reportable 01/01/19 06:45 Plt Morphology Comment Not Reportable 01/01/19 06:45 RBC Morphology Not Reportable 01/01/19 06:45 Dimorphic RBCs Not Reportable 01/01/19 06:45 Polychromasia Not Reportable 01/01/19 06:45 Hypochromasia Not Reportable 01/01/19 06:45 Poikilocytosis Not Reportable 01/01/19 06:45 Anisocytosis 1+ 01/01/19 06:45 Microcytosis Not Reportable 01/01/19 06:45 Macrocytosis Not Reportable 01/01/19 06:45 Spherocytes Not Reportable 01/01/19 06:45 Pappenheimer Bodies Not Reportable 01/01/19 06:45 Sickle Cells Not Reportable 01/01/19 06:45 Target Cells Not Reportable 01/01/19 06:45 Tear Drop Cells Not Reportable 01/01/19 06:45 Ovalocytes Not Reportable 01/01/19 06:45 Helmet Cells Not Reportable 01/01/19 06:45 Marcelo-Montier Bodies Not Reportable 01/01/19 06:45 [place] Rings Not Reportable 01/01/19 06:45 Holden Cells Not Reportable 01/01/19 06:45 Bite Cells Not Reportable 01/01/19 06:45 Crenated Cell Not Reportable 01/01/19 06:45 Elliptocytes Not Reportable 01/01/19 06:45 Acanthocytes (Spur) Not Reportable 01/01/19 06:45 Rouleaux Not Reportable 01/01/19 06:45 Hemoglobin C Crystals Not Reportable 01/01/19 06:45 Schistocytes Not Reportable 01/01/19 06:45 Malaria parasites Not Reportable 01/01/19 06:45 Gurdeep Bodies Not Reportable 01/01/19 06:45 Hem Pathologist Commnt No 01/01/19 06:45 PT 17.1 Sec. (12.2-14.9) H 12/28/18 07:20 INR 1.31 (0.87-1.13) H 12/28/18 07:20 APTT 38.7 Sec. (24.2-36.6) H 12/29/18 11:39 POC ABG pH 7.324 (7.35-7.45) L 01/01/19 04:29 POC ABG pCO2 35.7 (35-45) 01/01/19 04:29 POC ABG pO2 96 (80-105) 01/01/19 04:29 POC ABG HCO3 18.6 (22-26 mml/L) 01/01/19 04:29 POC ABG Total CO2 20 (23-27mmol/L) 01/01/19 04:29 POC ABG O2 Sat 97 01/01/19 04:29 POC ABG Base Excess -7 ((-2) - (+3)mmol/L) 01/01/19 04:29 VBG pH 7.149 (7.320-7.420) L* 12/28/18 07:20 FiO2 50 % 01/01/19 04:29 Sodium 152 mmol/L (137-145) H D 01/01/19 06:45 Potassium 3.5 mmol/L (3.6-5.0) L 01/01/19 13:00 Chloride 120.2 mmol/L (98-107) H 01/01/19 06:45 Carbon Dioxide 20 mmol/L (22-30) L 01/01/19 06:45 Anion Gap 15 mmol/L 01/01/19 06:45 BUN 12 mg/dL (9-20) 01/01/19 06:45 Creatinine 0.8 mg/dL (0.8-1.5) 01/01/19 06:45 Estimated GFR > 60 ml/min 01/01/19 06:45 BUN/Creatinine Ratio 15 % 01/01/19 06:45 Glucose 371 mg/dL (75-100) H 01/01/19 06:45 POC Glucose 361 (70-105) H 01/01/19 11:25 Osmolality 351 Mosm/kg 12/31/18 17:30 Lactic Acid 3.10 mmol/L (0.7-2.0) H* 01/01/19 06:45 Calcium 8.8 mg/dL (8.4-10.2) 01/01/19 06:45 Phosphorus 2.10 mg/dL (2.5-4.5) L 01/01/19 06:45 Magnesium 1.90 mg/dL (1.7-2.3) 01/01/19 13:00 Total Bilirubin 0.30 mg/dL (0.1-1.2) 01/01/19 06:45 AST 29 units/L (5-40) 01/01/19 06:45 ALT 61 units/L (7-56) H 01/01/19 06:45 Alkaline Phosphatase 140 units/L (35-129) H 01/01/19 06:45 Total Creatine Kinase 213 units/L (55-170) H 12/28/18 07:20 CK-MB (CK-2) 1.9 ng/mL (0.0-4.0) 12/28/18 07:20 CK-MB (CK-2) Rel Index 0.8 (0-4) 12/28/18 07:20 Troponin T 0.143 ng/mL (0.00-0.029) H* 12/28/18 22:20 Total Protein 6.1 g/dL (6.3-8.2) L 01/01/19 06:45 Albumin 1.7 g/dL (3.9-5) L 01/01/19 06:45 Albumin/Globulin Ratio 0.4 % 01/01/19 06:45 Triglycerides 106 mg/dL (2-149) 12/28/18 07:20 Cholesterol 82 mg/dL (50-199) 12/28/18 07:20 LDL Cholesterol Direct 49 mg/dL (50-130) L 12/28/18 07:20 HDL Cholesterol 27 mg/dL (40-59) L 12/28/18 07:20 Cholesterol/HDL Ratio 3.03 % 12/28/18 07:20 TSH 0.307 mlU/mL (0.270-4.200) 12/28/18 16:36 Free T4 0.96 ng/dL (0.76-1.46) 12/28/18 16:36 Urine Color Straw (Yellow) 12/31/18 17:56 Urine Turbidity Slightly-cloudy (Clear) 12/31/18 17:56 Urine pH 6.0 (5.0-7.0) 12/31/18 17:56 Ur Specific [place] 1.006 (1.003-1.030) 12/31/18 17:56 Urine Protein <15 mg/dl mg/dL (Negative) 12/31/18 17:56 Urine Glucose (UA) >=500 mg/dL (Negative) 12/31/18 17:56 Urine Ketones 20 mg/dL (Negative) 12/31/18 17:56 Urine Blood Mod (Negative) 12/31/18 17:56 Urine Nitrite Neg (Negative) 12/31/18 17:56 Urine Bilirubin Neg (Negative) 12/31/18 17:56 Urine Urobilinogen < 2.0 mg/dL (<2.0) 12/31/18 17:56 Ur Leukocyte Esterase Sm (Negative) 12/31/18 17:56 Urine WBC (Auto) 63.0 /HPF (0.0-6.0) H 12/31/18 17:56 Urine RBC (Auto) 10.0 /HPF (0.0-6.0) 12/31/18 17:56 U Epithel Cells (Auto) 1.0 /HPF (0-13.0) 12/31/18 17:56 Hyaline Casts 1 /LPF 12/28/18 08:02 Urine Mucus Few /HPF 12/31/18 17:56 Urine Yeast (Budding) 3+ /HPF 12/31/18 17:56 Urine Osmolality 454 Mosm/kg 04/15/19 17:20 Blood Type B POSITIVE 01/01/19 13:00 Antibody Screen Negative 01/01/19 13:00 Crossmatch See Detail 01/01/19 13:00 Active Medications - Current Medications Current Medications: Generic Name Dose Route Start Last Admin Trade Name Freq PRN Reason Stop Dose Admin Lipase/Protease/Amylase 1 each 12/30/18 13:52 Pancreaze 10,500 Unit FEEDTUBE PRN PRN For Clogged Feeding Tube Dextrose 0 ml 12/31/18 19:02 D50w (25gm) Syringe IV PRN PRN Hypoglycemia Enoxaparin Sodium 40 mg 01/01/19 22:00 Lovenox SUB-Q QDAY@2200 PATRICIO Famotidine 20 mg 01/01/19 14:00 Pepcid PO BID PATRICIO Hydrophilic Ointment 1 applic 12/28/18 07:23 Vaseline Lip Therapy TP Q2HR PRN Dry Lips Piperacillin Sod/Tazobactam Sod 4.5 gm in 100 mls @ 200 mls/hr 12/29/18 12:00 01/01/19 14:12 Zosyn/Ns 4.5gm/100ml IV 200 mls/hr Q8H PATRICIO Administration Protocol Vasopressin 20 unit/ Sodium 101 mls @ 9.09 mls/hr 12/31/18 08:00 01/01/19 14:11 Chloride IV 0.03 units/min TITR PATRICIO 9.09 mls/hr Administration Protocol 0.03 UNITS/MIN Norepinephrine 8 mg/ Sodium 250 mls @ 3.75 mls/hr 12/31/18 08:00 01/01/19 12:32 Chloride IV 16 mcg/min TITR PATRICIO 30 mls/hr Titration Protocol 2 MCG/MIN Potassium Phosphate 40 mmol/ 521.3333 mls @ 85 mls/hr 01/01/19 10:00 01/01/19 10:41 Magnesium Sulfate 4 gm/ Sodium IV 01/01/19 16:07 85 mls/hr Chloride ONCE ONE Administration Potassium Chloride/Sodium Chloride 20 meq in 1,000 mls @ 125 mls/hr 01/01/19 14:00 Ns 0.45/Kcl 20meq IV DIRECT PATRICIO Magnesium Sulfate 3 gm/ Sodium 106 mls @ 35.333 mls/hr 01/01/19 15:00 01/01/19 14:13 Chloride IV 01/01/19 17:59 35.333 mls/hr ONCE ONE Administration Insulin Glargine 20 units 01/01/19 14:00 01/01/19 14:12 Lantus SUB-Q 20 units QAMDIAB PATRICIO Administration Insulin Human Lispro 0 unit 01/01/19 14:00 01/01/19 14:13 Humalog SUB-Q 8 unit Q6HR PATRICIO Administration Protocol Multi-Ingred Cream/Lotion/Oil/Oint 1 applic 12/28/18 07:23 Artificial Tears Ophth Oint OU Q4HR PRN Dry Eye(s) Naloxone HCl 0.1 mg 12/28/18 11:28 Narcan 0.4 Mg/1 Ml IV Q2MIN PRN Res Rate </= 8 or 02 SAT < 92% Ondansetron HCl 4 mg 12/28/18 11:28 Zofran IV Q8H PRN Nausea And Vomiting Simple Syrup 15 ml 12/30/18 13:52 Simple Syrup FEEDTUBE PRN PRN Hypoglycemia Simple Syrup 30 ml 12/30/18 13:52 Simple Syrup FEEDTUBE PRN PRN Hypoglycemia Sodium Bicarbonate 325 mg 12/30/18 13:52 Sodium Bicarbonate FEEDTUBE PRN PRN For Clogged Feeding Tube Sodium Chloride 10 ml 12/28/18 22:00 01/01/19 10:42 Sodium Chloride Flush Syringe 10 Ml IV 10 ml BID PATRICIO Administration Sodium Chloride 10 ml 12/28/18 11:28 Sodium Chloride Flush Syringe 10 Ml IV PRN PRN LINE FLUSH Nutrition/Malnutrition Assess - Dietary Evaluation Nutrition/Malnutrition Findings: Nutrition Notes Start: 12/28/18 09:49 Freq: Status: Active Protocol: Document 01/01/19 09:59 CT (Rec: 01/01/19 10:11 CT [id number]) Co-Sign 01/01/19 09:59 LP Nutrition Notes Initial or Follow up Reassessment Current Diagnosis COPD,Diabetes,Hypertension, Hyperlipidemia Other Pertinent Diagnosis s/p cardiac arrest, debility, stage 4 sacral ulcer,R buttocks wound,(R) AKA Current Diet TF- Vital 1.2 @ 60mL/hr Labs/Tests Na: 152 K: 3.1 glucose: 318 Pertinent Medications Reviewed Height 5 ft 7 in Weight 55.7 kg [place] Body Weight (kg) 67.27 BMI 19.2 Subjective/Other Information Observed TF infusing at 50mL/ hr. Per RN pt is tolerating well and brady advance to goal of 60mL/hr this afternoon. MD increased flush to 250mL q6h. Percent of energy/protein needs met: 88%/100% Burn Absent Trauma Absent #1 Nutrition Diagnosis Inadequate oral intake Diagnosis Progress(for reassessment Continues documentation) Is patient on ventilator? Yes Is Patient Ambulatory and/or Out of Bed No REE-([place]-confined to bed) 1648.980 Kcal/Kg value to use for calculation 35 Approximate Energy Requirements Using 1950 kcal/Kg Calculation Used for Recommendations Kcal/kg Additional Notes Pro needs 1.2-2g/k-113g/ day Fluid needs 1ml/kcal Nutrition Intervention Nutrition Support: Vital 1.2 at 60 ml/hr. Water flush of 150 mls q 4 hrs until hypernatremia resolves or per MD. Water flushes of 100 mls q 4 hrs after hypernatremia resolves. Kcal 1,728 Protein (gm) 108 Fluid (mL) 1,168 Goal #1 TF tolerance Goal #2 Meet at least 80% of calorie and protein needs via TF Follow-Up By: 01/03/19 Additional Comments F/U: TF at goal, TF tolerance
--- NOTE | 2019-01-01 14:45 | Death Summary ---
Summary - Providers Consults: 12/28/18 07:23 Consult to Dietitian/Nutrition [CONS] Routine Physician Instructions: Reason For Exam: Reason for Consult: Evaluate nutritional intake 12/28/18 07:54 Consult to Physician [CONS] Urgent Comment: Consulting Provider: HERIBERTO CASTLE Physician Instructions: Reason For Exam: cardiopulm arrest 12/28/18 11:58 Consult to Cardiology [CONS] Stat Consulting Provider: OTTO GORDILLO Reason For Exam: Bigeminy and Bradycardia in pt s/p cardiac arrest 12/29/18 15:39 Consult to Dietitian/Nutrition [CONS] Routine Physician Instructions: Reason For Exam: Reason for Consult: Write/Manage Tube Feeding 12/30/18 10:26 Consult to Physician [CONS] Routine Comment: Consulting Provider: ZION DEAN Physician Instructions: Reason For Exam: Brain evaluation 12/30/18 10:28 Consult to PICC Line RN [CONS] Stat Reason For Exam: vasopressor Type Line:: PICC 12/31/18 09:33 Consult to Wound/ET Nurse [CONS] Routine Reason For Exam: wound eval 12/31/18 11:58 Consult to Physician [CONS] Routine Comment: Consulting Provider: RENATO MONTELONGO Physician Instructions: Reason For Exam: hyponatremia Attending: LUIS RODRIGUEZ MD - summary Date of admission: 12/28/18 08:20 Date of : 01/01/19 Significant findings: Patient is a 53 yo man from [facility] with history of chronic respiratory failure due to end stage COPD on prn O2, significant debility, G-tube placement, chronic iron deficiency anemia, hypertension, seizures, stage IV sacral ulcer and osteomyelitis of the sacral region, IDDM and PAD with right above knee amputation, nonverbal and status post PEG tube, who presented to the ED in cardiopulmonary arrest. According to the chart, he suffered an out of the hospital cardiac arrest. At the [facility] was hyperglycemic and deteriorated to shortness of breath followed by bradycardia and pulselessness in route to the hospital. Patient gives no history because he is intubated, patient not responsive on vent without sedation, multiple pressors. No family present. care home records shows he is Full code. Cardiopulmonary resuscitation was performed, patient was intubated, and placed on levophed and vasopressin. He is found to be acidotic , hypercapnic, hyperglycemic and anemic. He was further treated with 2 units of PRBC and insulin gtt. Please note at baseline patient is nonverbal. -The patient was maintained on a mechanical ventilator throughout his hospital stay, continue ventilator -He has been on insulin drip per DKA protocol -He was treated with bicarbonate drip for acidosis, combined acidosis -The patient is suffering multiorgan failure, heart failure, shock liver The patient suffered anemia requiring blood transfusion -The patient was treated empirically with antibiotics -Has been explained to the patient sister and I have a very poor prognosis, the family wants to continue full code, and continue aggressive therapy -His electrolytes were repleted, his free water deficit was being corrected with IV fluids and water via G-tube -Discussed with neurologist, he received nuclear medicine brain flow scan and CT head, EEG and exam. Based on the clinical findings, the patient was pronounced brain , his family were elevated. Acute on chronic respiratory failure: CardioPulmonary arrest DKA: Acute combined acidosis: Multisystem organ failure, Anemia, acute on chronic anemia Sepsis Pneumonia, gram-negative bacteria, Pseudomonas Sacral osteomyelitis UTI Distributive shock mulitiple large deep Decubitus ulcers to right shoulder, right buttock, right ischium, sacrum, lateral aspect of left leg, left heel, present on admission Hyponatremia Hypokalemia Hypophosphatemia Hypomagnesemia Anemia of chronic disease - Final diagnosis (1) Brain Note: Final diagnosis:
[2019-01-01] MEDS ORDERED: MAGNESIUM SULFATE 3 GM in NACL 0.9% 100 ML IV ONE (15:00)
[2019-01-01 18:08] VITALS: BP 112/68
[2019-01-01] MEDS ORDERED: LOVENOX SUB-Q SCH (22:00)
== END 2019-01-01 20:20 | DRG 870 ==
LOC: ED 06:48 → CC1 08:20
PROVIDERS: ADMIT Internal Medicine; ATTEND Internal Medicine
PROC: 5A1955Z Respiratory Ventilation, Greater than 96 Consecutive Hours (ICD-10-PCS; 2018-12-28)
PROC: 30233N1 Transfusion of Nonautologous Red Blood Cells into Peripheral Vein, Percutaneous Approach (ICD-10-PCS; 2018-12-28)
PROC: 0BH17EZ Insertion of Endotracheal Airway into Trachea, Via Natural or Artificial Opening (ICD-10-PCS; 2018-12-28)
PROC: 4A033R1 Measurement of Arterial Saturation, Peripheral, Percutaneous Approach (ICD-10-PCS; 2018-12-29)
PROC: 02HV33Z Insertion of Infusion Device into Superior Vena Cava, Percutaneous Approach (ICD-10-PCS; 2018-12-30)
PROC: 5A12012 Performance of Cardiac Output, Single, Manual (ICD-10-PCS; principal; 2018-12-31)
DX: A41.9 Sepsis, unspecified organism (principal); E11.10 Type 2 diabetes mellitus with ketoacidosis without coma; R65.21 Severe sepsis with septic shock; L89.154 Pressure ulcer of sacral region, stage 4; J96.21 Acute and chronic respiratory failure with hypoxia; J96.22 Acute and chronic respiratory failure with hypercapnia; J15.6 Pneumonia due to other Gram-negative bacteria; J15.1 Pneumonia due to Pseudomonas; I46.9 Cardiac arrest, cause unspecified; R74.0 Nonspecific elevation of levels of transaminase and lactic acid dehydrogenase [LDH]; R79.89 Other specified abnormal findings of blood chemistry; E86.0 Dehydration; E87.5 Hyperkalemia; E83.52 Hypercalcemia; E87.0 Hyperosmolality and hypernatremia; G40.909 Epilepsy, unspecified, not intractable, without status epilepticus; J44.9 Chronic obstructive pulmonary disease, unspecified; E78.5 Hyperlipidemia, unspecified; E11.65 Type 2 diabetes mellitus with hyperglycemia; N39.0 Urinary tract infection, site not specified; M46.28 Osteomyelitis of vertebra, sacral and sacrococcygeal region; D50.9 Iron deficiency anemia, unspecified; I11.0 Hypertensive heart disease with heart failure; I50.9 Heart failure, unspecified; E11.51 Type 2 diabetes mellitus with diabetic peripheral angiopathy without gangrene; N17.9 Acute kidney failure, unspecified; G93.1 Anoxic brain damage, not elsewhere classified; E83.39 Other disorders of phosphorus metabolism; E83.42 Hypomagnesemia; D63.8 Anemia in other chronic diseases classified elsewhere; L89.899 Pressure ulcer of other site, unspecified stage; L89.319 Pressure ulcer of right buttock, unspecified stage; L89.629 Pressure ulcer of left heel, unspecified stage; Z89.611 Acquired absence of right leg above knee; Z93.1 Gastrostomy status; Z79.4 Long term (current) use of insulin
CPT/HCPCS: 36415; 36600; 70450; 71045; 78601; 80048; 80053; 80061; 80177; 81001; 82140; 82550; 82553; 82803; 82805; 82962; 83735; 83930; 83935; 84100; 84132; 84439; 84443; 84484; 85007; 85014; 85018; 85025; 85027; 85610; 85730; 86850; 86900; 86901; 86920; 87040; 87070; 87076; 87086; 87186; 87205; 93005; 93010; 93306; 94002; 94003; 95819; 96374; G0378; A9512; J0171; J1815; J1953; J2370; J2543; J2997; J3370; J3475; J3480; J7030; J7040; J7050; J7070; P9016